=== PATIENT | female | born 1945 | race Caucasian/White ===

== ENCOUNTER 2016-11-15 07:09 | Day surgery (SDC) | payer OTHER ==
[2016-11-15] MEDS ORDERED: D5 LR 1000 ML 1,000 ML IV ONE (07:23)
[2016-11-15] MEDS ORDERED: NORMODYNE INJ 20 MG VIAL ONE (08:03)
[2016-11-15] MEDS ORDERED: DIPRIVAN VIAL 20 ML ONE ×2 (08:35→08:57)
[2016-11-15 09:31] VITALS: BP 123/64
== END 2016-11-15 09:30 | disposition home or self-care (01) ==
LOC: SURG1 07:09
PROVIDERS: ATTEND Internal Medicine Gastroenterology
PROC: 0DJD8ZZ Inspection of Lower Intestinal Tract, Via Natural or Artificial Opening Endoscopic (ICD-10-PCS; principal; 2016-11-15 08:00)
DX: Z12.11 Encounter for screening for malignant neoplasm of colon (principal); R19.4 Change in bowel habit; K63.5 Polyp of colon; K64.8 Other hemorrhoids
CPT/HCPCS: 99100; A4217; J3490; J7120

== ENCOUNTER 2016-12-20 07:18 | Day surgery (SDC) | payer OTHER ==
[2016-12-20] MEDS: D5 LR 1000 ML 1,000 ML IV ONE ×2 (07:47→08:03)
[2016-12-20] MEDS ORDERED: DIPRIVAN VIAL 20 ML ONE (08:48)
[2016-12-20] MEDS ORDERED: XYLOCAINE 2 % (PLAIN) ONE (08:48)
[2016-12-20 13:32] VITALS: BP 186/83
== END 2016-12-20 09:26 | disposition home or self-care (01) ==
LOC: SURG1 07:18
PROVIDERS: ATTEND Internal Medicine Gastroenterology
PROC: 0DB68ZX Excision of Stomach, Via Natural or Artificial Opening Endoscopic, Diagnostic (ICD-10-PCS; principal; 2016-12-20 10:15)
PROC: 0D757ZZ Dilation of Esophagus, Via Natural or Artificial Opening (ICD-10-PCS; principal; 2016-12-20 10:15)
PROC: 0DB88ZX Excision of Small Intestine, Via Natural or Artificial Opening Endoscopic, Diagnostic (ICD-10-PCS; principal; 2016-12-20 10:15)
PROC: 0DJ08ZZ Inspection of Upper Intestinal Tract, Via Natural or Artificial Opening Endoscopic (ICD-10-PCS; principal; 2016-12-20 10:15)
DX: R10.13 Epigastric pain (principal); K21.9 Gastro-esophageal reflux disease without esophagitis; K26.9 Duodenal ulcer, unspecified as acute or chronic, without hemorrhage or perforation; K29.60 Other gastritis without bleeding; K44.9 Diaphragmatic hernia without obstruction or gangrene; K20.8 Other esophagitis; K22.2 Esophageal obstruction
CPT/HCPCS: 99100; A4217; J2001; J3490; J7120

== ENCOUNTER 2020-06-28 12:12 | Inpatient (IN) ==
--- NOTE | 2020-06-28 15:17 | RAD ---
HISTORYCOVID 19 positive, PNEUMONIASTUDYCHEST x-ray, 1 VIEWCOMPARISONX-ray 06/27/2020FINDINGSVague bilateral infiltrates are seen likely due to COVID-19 pneumonia. These are similar to prior study. Heart is normal in size. Vascular calcifications are seen projected overlying the lung apices.IMPRESSIONLikely mild bilateral COVID-19 pneumonia.Electronically signed by: John Smith (Jun 28, 2020 15:16:09)
[2020-06-28] MEDS: NS 1000 ML 1,000 ML IV SCH (15:25)
[2020-06-28] MEDS: DUONEB 0.5 MG/3 MG (3 mL) NEB SCH ×2 (15:27→20:30)
[2020-06-28 16:19] VITALS: BMI 29.1
[2020-06-28] MEDS: HumuLIN R SC PRN ×2 (17:38→21:49)
[2020-06-28 18:30] LABS: BASOPHILS # (AUTO) 0.1 X10^3/uL (0.0-0.1); BASOPHILS % (AUTO) 0.6 % (0.2-1.0); EOSINOPHILS # (AUTO) 0.1 x10^3/uL (0.0-0.2); EOSINOPHILS % (AUTO) 0.5 % (0.9-2.9); HEMATOCRIT 39.8 % (36.0-47.0); HEMOGLOBIN 13.4 g/dL (12.0-16.0); LYMPHOCYTES # (AUTO) 1.6 X10^3/uL (1.3-2.9); LYMPHOCYTES % (AUTO) 9.1 % (21.0-51.0); MEAN CORPUSCULAR HEMOGLOBIN 28.2 pg (27.0-34.0); MEAN CORPUSCULAR HGB CONC 33.7 g/dL (33.0-35.0); MEAN CORPUSCULAR VOLUME 83.6 fL (80.0-100.0); MEAN PLATELET VOLUME 9.9 fL (7.4-11.0); MONOCYTES # (AUTO) 1.5 x10^3/uL (0.3-0.8); MONOCYTES % (AUTO) 8.4 % (0.0-13.0); NEUTROPHILS # (AUTO) 14.3 x10^3/uL (2.2-4.8); NEUTROPHILS % (AUTO) 81.4 % (42.0-75.0); PLATELET COUNT 215 X10^3/uL (150.0-450.0); RED BLOOD COUNT 4.76 X10^6/uL (3.5-5.4); RED CELL DISTRIBUTION WIDTH 14.2 % (11.6-16.5); WHITE BLOOD COUNT 17.6 X10^3/uL (3.6-10.0)
[2020-06-28 18:50] LABS: ALBUMIN 2.7 g/dL (3.4-5.0); CALCIUM 10.3 mg/dL (8.5-10.1); CARBON DIOXIDE 29.3 mmol/L (21-32); COR CA(FOR HYPOALB) 11.3 mg/dL (8.5-10.1); CREATININE 2.09 mg/dL (0.55-1.02); TOTAL PROTEIN 7.1 g/dL (6.4-8.2); TROPONIN I 0.11 ng/mL (0-1.5)
[2020-06-28 20:48] LABS: BILIRUBIN,URINE NEGATIVE (NEGATIVE); BLOOD/HEMOGLOBIN,URINE 3+ (NEGATIVE); GLUCOSE, URINE 4+ (NEGATIVE); KETONES,URINE NEGATIVE (NEGATIVE); LEUKOCYTE ESTERASE ,URINE 3+ (NEGATIVE); NITRITES,URINE NEGATIVE (NEGATIVE); PROTEIN,URINE 2+ (NEGATIVE); UROBILINOGEN,URINE NORMAL (NORMAL)
[2020-06-28 20:56] LABS: APPEARANCE,URINE HAZY (CLEAR); BACTERIA,URINE 3+ /HPF (NEGATIVE); COLOR,URINE YELLOW (YELLOW); RBC,URINE NONE SEEN /HPF (0-3); SQUAMOUS EPITHELIAL CELL,UR MODERATE /HPF (NEGATIVE)
[2020-06-28] MEDS ORDERED: ROCEPHIN VIAL 1 GRAM 1 G in NS 100 ML IV + SPIKE MINIBAG* 100 ML IV SCH (21:24)
[2020-06-28] MEDS: CRESTOR TAB 10 MG PO SCH (21:48)
[2020-06-28] MEDS: NEURONTIN CAP 100 MG PO SCH (21:48)
[2020-06-28] MEDS: SNACK - Diabetic Appropriate PO SCH (21:48)
[2020-06-28] MEDS: LANTUS SC SCH (21:48)
[2020-06-28] MEDS: NORCO 7.5/325 MG TAB PO PRN (21:49)
[2020-06-28] MEDS: ROCEPHIN VIAL 1 GRAM 1 G in NS 100 ML IV + SPIKE MINIBAG* 100 ML IV SCH (23:13)
[2020-06-29] MEDS: HumuLIN R SC PRN ×4 (02:11→23:09)
[2020-06-29] MEDS: DUONEB 0.5 MG/3 MG (3 mL) NEB SCH ×3 (05:02→21:05)
[2020-06-29] MEDS: NS 1000 ML 1,000 ML IV SCH ×2 (05:46→20:00)
[2020-06-29 06:08] LABS: BASOPHILS % (AUTO) 0.3 % (0.2-1.0); EOSINOPHILS # (AUTO) 0.1 x10^3/uL (0.0-0.2); EOSINOPHILS % (AUTO) 0.5 % (0.9-2.9); HEMOGLOBIN 12.5 g/dL (12.0-16.0); LYMPHOCYTES # (AUTO) 1.7 X10^3/uL (1.3-2.9); LYMPHOCYTES % (AUTO) 11.4 % (21.0-51.0); MEAN CORPUSCULAR HEMOGLOBIN 27.9 pg (27.0-34.0); MEAN CORPUSCULAR HGB CONC 33.8 g/dL (33.0-35.0); MEAN CORPUSCULAR VOLUME 82.7 fL (80.0-100.0); MEAN PLATELET VOLUME 10.2 fL (7.4-11.0); MONOCYTES # (AUTO) 1.5 x10^3/uL (0.3-0.8); MONOCYTES % (AUTO) 9.5 % (0.0-13.0); NEUTROPHILS % (AUTO) 78.3 % (42.0-75.0); PLATELET COUNT 199 X10^3/uL (150.0-450.0); RED BLOOD COUNT 4.48 X10^6/uL (3.5-5.4); RED CELL DISTRIBUTION WIDTH 14.6 % (11.6-16.5); WHITE BLOOD COUNT 15.3 X10^3/uL (3.6-10.0)
[2020-06-29 06:47] LABS: ALBUMIN 2.4 g/dL (3.4-5.0); CALCIUM 9.5 mg/dL (8.5-10.1); COR CA(FOR HYPOALB) 10.8 mg/dL (8.5-10.1); CREATININE 1.83 mg/dL (0.55-1.02); TOTAL PROTEIN 6.5 g/dL (6.4-8.2)
[2020-06-29 06:51] LABS: CARBON DIOXIDE 28.6 mmol/L (21-32)
[2020-06-29] MEDS: ASPIRIN EC 81 MG PO SCH (08:47)
[2020-06-29] MEDS: HEPARIN SODIUM INJ 5000 UNITS SC SCH ×2 (08:47→21:37)
[2020-06-29] MEDS: NEURONTIN CAP 100 MG PO SCH ×3 (08:47→21:33)
--- NOTE | 2020-06-29 11:27 | DR.H&P ---
H&P History & Physical for Day of: H&P Date: 06/28/20 Chief Complaint Chief Complaint: weakness, fatigue Allergies Allergies Allergy/AdvReac Type Severity Reaction Status Date / Time No Known Drug Allergies Allergy Verified 06/15/20 11:08 History of Present Illness History of Present Illness: Ms. Lu is a 75y/o female with a PMH of HTN, Type 2 DM, HLD, chronic back pain presented with weakness, fatigue and COVID-19 infection. She tested positive on 06/15/20. She received outpatient treatment with Z-pack and prednisone. She also received IV antibody infusion bamlanivimab. She continued to feel worse and more weak. Patient was seen in the ED on 06/27 and noted to have elevated creatinine. She received fluids and was discharged home. Patient had a fall at home where she was found on the floor and too weak to get up so she was directly admitted for further care. Patient denies fever or chills. She has mild dry cough. Her appetite is improving, no N/V/D. Patient denies SOB. She is currently on room air with sats > 95%. Labs: WBC 17.6 BUN/Cr: 34/2.09 troponin 0.11 CRP 96 Repeat COVID positive CXR: suggestive of viral pneumonia with b/l opacities UA: TNTC WBC Bacteria present DEVENDRA + Plan: start IV hydration with NS, resume home medications, hold nephrotoxic medications until renal function improves. Start Rocephin for UTI, send urine culture. Start duonebs prn. PT/OT as tolerated. Start Lantus and SSI. Monitor AM labs. Past Medical History Past Medical History: Arthritis, Diabetes, Dyslipidemia and Hypertension Past Surgical History Surgical History: Hysterectomy Family History Family Medical History: Diabetes Mellitus, [place] and Hypertension Social History Does patient currently use any type of tobacco product: No Have you used tobacco products in the last 12 months: No Type of Tobacco Use: None Does any household member use tobacco: No Alcohol Use: None Drug Use: None Prescription drug monitoring program results: PDMP reviewed and no concerns identified Medications Home Medications: No Known Drug Allergies Allergy (Verified 06/15/20 11:08) CONTINUE taking the following medications aspirin 81 mg PO DAILY 06/28/20 [History] cholecalciferol (vitamin D3) 1.25 mcg PO DAILY 06/28/20 [History] gabapentin 100 mg PO QID 06/28/20 [History] hydrocodone-acetaminophen 1 tab PO BID PRN 06/28/20 [History] insulin lispro [Humalog KwikPen Insulin] See Rx Instructions .ROUTE .COMPLEX 06/28/20 [History] Labs Result Diagrams: 06/29/20 05:00 06/29/20 05:00 Labs: Laboratory WBC 15.3 X10^3/uL (3.6-10.0) H 06/29/20 05:00 RBC 4.48 X10^6/uL (3.5-5.4) 06/29/20 05:00 Hgb 12.5 g/dL (12.0-16.0) 06/29/20 05:00 Hct 37.0 % (36.0-47.0) 06/29/20 05:00 MCV 82.7 fL (80.0-100.0) 06/29/20 05:00 MCH 27.9 pg (27.0-34.0) 06/29/20 05:00 MCHC 33.8 g/dL (33.0-35.0) 06/29/20 05:00 RDW 14.6 % (11.6-16.5) 06/29/20 05:00 Plt Count 199 X10^3/uL (150.0-450.0) 06/29/20 05:00 MPV 10.2 fL (7.4-11.0) 06/29/20 05:00 Neut % (Auto) 78.3 % (42.0-75.0) H 06/29/20 05:00 Lymph % (Auto) 11.4 % (21.0-51.0) L 06/29/20 05:00 [place] % (Auto) 9.5 % (0.0-13.0) 06/29/20 05:00 Eos % (Auto) 0.5 % (0.9-2.9) L 06/29/20 05:00 Baso % (Auto) 0.3 % (0.2-1.0) 06/29/20 05:00 Neut # (Auto) 12.0 x10^3/uL (2.2-4.8) H 06/29/20 05:00 Lymph # (Auto) 1.7 X10^3/uL (1.3-2.9) 06/29/20 05:00 [place] # (Auto) 1.5 x10^3/uL (0.3-0.8) H 06/29/20 05:00 Eos # (Auto) 0.1 x10^3/uL (0.0-0.2) 06/29/20 05:00 Baso # (Auto) 0.0 X10^3/uL (0.0-0.1) 06/29/20 05:00 Absolute Nucleated RBC 0.0 /100WBC 06/29/20 05:00 Sodium 130 mmol/L (136-145) L 06/29/20 05:00 Corrected Sodium 132 mmol/L (136-145) L 06/29/20 05:00 Potassium 3.7 mmol/L (3.5-5.1) 06/29/20 05:00 Chloride 94 mmol/L (98-107) L 06/29/20 05:00 Carbon Dioxide 28.6 mmol/L (21-32) 06/29/20 05:00 BUN 32 mg/dL (7-18) H 06/29/20 05:00 Creatinine 1.83 mg/dL (0.55-1.02) H 06/29/20 05:00 Est GFR (MDRD) Af Amer 35 (>60) L 06/29/20 05:00 Est GFR (MDRD) Non-Af 29 (>60) L 06/29/20 05:00 Glucose 200 mg/dL (65-99) H 06/29/20 05:00 POC Glucose (mg/dL) 370 mg/dL (65-99) H 06/29/20 11:19 Calcium 9.5 mg/dL (8.5-10.1) 06/29/20 05:00 Corrected Calcium 10.8 mg/dL (8.5-10.1) H 06/29/20 05:00 Total Bilirubin 0.40 mg/dL (0.2-1.0) 06/29/20 05:00 AST 27 Units/L (15-37) 06/29/20 05:00 ALT 25 Units/L (12-78) 06/29/20 05:00 Alkaline Phosphatase 97 Units/L (46-116) 06/29/20 05:00 Troponin I 0.11 ng/mL (0-1.5) 06/28/20 18:14 C-Reactive Protein 96.70 mg/L (0-3.0) H 06/28/20 18:14 Total Protein 6.5 g/dL (6.4-8.2) 06/29/20 05:00 Albumin 2.4 g/dL (3.4-5.0) L 06/29/20 05:00 Globulin 4.1 g/dL (2.5-4.5) 06/29/20 05:00 Albumin/Globulin Ratio 0.6 Ratio (1.1-2.1) L 06/29/20 05:00 Specimen Type Random urine 06/28/20 18:45 Urine Color Yellow (YELLOW) 06/28/20 18:45 Urine Appearance Hazy (CLEAR) 06/28/20 18:45 Urine pH 5.0 (5.0 - 8.0) 06/28/20 18:45 Ur Specific [place] 1.015 (1.000-1.030) 06/28/20 18:45 Urine Protein 2+ (NEGATIVE) 06/28/20 18:45 Urine Glucose (UA) 4+ (NEGATIVE) 06/28/20 18:45 Urine Ketones Negative (NEGATIVE) 06/28/20 18:45 Urine Occult Blood 3+ (NEGATIVE) 06/28/20 18:45 Urine Nitrite Negative (NEGATIVE) 06/28/20 18:45 Urine Bilirubin Negative (NEGATIVE) 06/28/20 18:45 Urine Urobilinogen Normal (NORMAL) 06/28/20 18:45 Ur Leukocyte Esterase 3+ (NEGATIVE) 06/28/20 18:45 Urine RBC None seen /HPF (0-3) 06/28/20 18:45 Urine WBC Tntc /HPF (0-5) A 06/28/20 18:45 Ur Squamous Epith Cells Moderate /HPF (NEGATIVE) 06/28/20 18:45 Urine Bacteria 3+ /HPF (NEGATIVE) 06/28/20 18:45 Ur Culture Indicated? No/not indicated 06/28/20 18:45 SARS CoV-2 RNA Rapid CRISTINA Positive (NEGATIVE) A 06/28/20 14:12 Review of Systems Constitutional: Weakness and Malaise Eyes: No Symptoms Reported ENT: No Symptoms Reported Respiratory: Cough Cardiovascular: No Symptoms Reported Gastrointestinal: No Symptoms Reported Genitourinary: No Symptoms Reported Musculoskeletal: Back Pain Skin: No Symptoms Reported Neurological: Weakness Physical Exam Vital Signs: Temperature 98.5 F Pulse Rate 102 Respiratory Rate 23 Blood Pressure [Left Arm] 117/54 Blood Pressure 148/65 O2 Sat by Pulse Oximetry 96 Oriented: Normal Eyes: Normal Ear: Normal Nose: Normal Throat: Normal Respiratory: Diminished Throughout Cardiovascular: Normal and Edema Auscultation: Bowel Sounds: Normal Palpation: Normal Tenderness: Normal Skin: Decreased Turgur Musculoskeletal: Normal Psychiatric: Normal Mood Description: Calm Affect: Normal Speech Pattern: Clear and Appropriate Assessment/Plan (1) UTI (urinary tract infection): Qualifiers: Hematuria presence: without hematuria Urinary tract infection type: acute cystitis Qualified Code(s): N30.00 - Acute cystitis without hematuria Status: Acute (2) COVID-19 virus infection: Status: Acute (3) Uncontrolled diabetes mellitus: Qualifiers: Diabetes mellitus type: type 2 Glycemic state: with hyperglycemia Qualified Code(s): E11.65 - Type 2 diabetes mellitus with hyperglycemia Status: Acute (4) Generalized weakness: Status: Acute (5) Acute renal failure (ARF): Qualifiers: Acute renal failure type: unspecified Qualified Code(s): N17.9 - Acute kidney failure, unspecified Status: Acute (6) Hyponatremia: Status: Acute Review H&P Reviewed: Yes Patient was examined?: Yes
--- NOTE | 2020-06-29 12:09 | PCM.PROG ---
Progress Note Progress Note for Day of Date of Exam: 06/29/20 Subjective Subjective: Patient seen at bedside, no overnight events. She states she still feels weak. She is able to get up and use the bedside commode. She states she did eat and her appetite is better. Denies N/V/D or abdominal pain. Denies fever or chills, no cough. She has been on room air. Labs: WBC trending down 15.3 BUN/Cr: 32/1.83 Urine and Blood Cx pending Plan: continue hydration with NS, continue Rocephin. Follow AM labs and cultures. Continue duonebs. Will add hydralazine prn for SBP>160. PT/OT as tolerated. Add IS. Continue DVT ppx. Continue Lantus and SSI. Past Medical Family Social History Past Med/Fam/Surg Hx: No changes since H&P Allergies: Allergies No Known Drug Allergies Allergy (Verified 06/15/20 11:08) Review of Systems ROS: No change since H&P Vital Signs and I&O's Vital Signs: Temperature 98.5 F Pulse Rate 102 Respiratory Rate 23 Blood Pressure [Left Arm] 117/54 Blood Pressure 148/65 O2 Sat by Pulse Oximetry 96 Intake and Output: Intake & Output 06/26/20 06/27/20 06/28/20 06/29/20 23:59 23:59 23:59 23:59 Intake Total 1300 / 1300 1500 / 1500 Balance 1300 / 1300 1500 / 1500 Physical Exam Oriented: Normal Eyes: Normal Ear: Normal Nose: Normal Throat: Normal Respiratory: Generalized and Diminished Cardiovascular: Normal and Edema Auscultation: Bowel Sounds: Normal Tenderness: Normal Skin: Decreased [place] Musculoskeletal: Normal Psychiatric: Normal Mood Description: Calm Affect: Normal Speech Pattern: Clear and Appropriate Laboratory and Diagnostics Result Diagrams: 06/29/20 05:00 06/29/20 05:00 Labs: Laboratory WBC 15.3 X10^3/uL (3.6-10.0) H 06/29/20 05:00 RBC 4.48 X10^6/uL (3.5-5.4) 06/29/20 05:00 Hgb 12.5 g/dL (12.0-16.0) 06/29/20 05:00 Hct 37.0 % (36.0-47.0) 06/29/20 05:00 MCV 82.7 fL (80.0-100.0) 06/29/20 05:00 MCH 27.9 pg (27.0-34.0) 06/29/20 05:00 MCHC 33.8 g/dL (33.0-35.0) 06/29/20 05:00 RDW 14.6 % (11.6-16.5) 06/29/20 05:00 Plt Count 199 X10^3/uL (150.0-450.0) 06/29/20 05:00 MPV 10.2 fL (7.4-11.0) 06/29/20 05:00 Neut % (Auto) 78.3 % (42.0-75.0) H 06/29/20 05:00 Lymph % (Auto) 11.4 % (21.0-51.0) L 06/29/20 05:00 [place] % (Auto) 9.5 % (0.0-13.0) 06/29/20 05:00 Eos % (Auto) 0.5 % (0.9-2.9) L 06/29/20 05:00 Baso % (Auto) 0.3 % (0.2-1.0) 06/29/20 05:00 Neut # (Auto) 12.0 x10^3/uL (2.2-4.8) H 06/29/20 05:00 Lymph # (Auto) 1.7 X10^3/uL (1.3-2.9) 06/29/20 05:00 [place] # (Auto) 1.5 x10^3/uL (0.3-0.8) H 06/29/20 05:00 Eos # (Auto) 0.1 x10^3/uL (0.0-0.2) 06/29/20 05:00 Baso # (Auto) 0.0 X10^3/uL (0.0-0.1) 06/29/20 05:00 Absolute Nucleated RBC 0.0 /100WBC 06/29/20 05:00 Sodium 130 mmol/L (136-145) L 06/29/20 05:00 Corrected Sodium 132 mmol/L (136-145) L 06/29/20 05:00 Potassium 3.7 mmol/L (3.5-5.1) 06/29/20 05:00 Chloride 94 mmol/L (98-107) L 06/29/20 05:00 Carbon Dioxide 28.6 mmol/L (21-32) 06/29/20 05:00 BUN 32 mg/dL (7-18) H 06/29/20 05:00 Creatinine 1.83 mg/dL (0.55-1.02) H 06/29/20 05:00 Est GFR (MDRD) Af Amer 35 (>60) L 06/29/20 05:00 Est GFR (MDRD) Non-Af 29 (>60) L 06/29/20 05:00 Glucose 200 mg/dL (65-99) H 06/29/20 05:00 POC Glucose (mg/dL) 370 mg/dL (65-99) H 06/29/20 11:19 Calcium 9.5 mg/dL (8.5-10.1) 06/29/20 05:00 Corrected Calcium 10.8 mg/dL (8.5-10.1) H 06/29/20 05:00 Total Bilirubin 0.40 mg/dL (0.2-1.0) 06/29/20 05:00 AST 27 Units/L (15-37) 06/29/20 05:00 ALT 25 Units/L (12-78) 06/29/20 05:00 Alkaline Phosphatase 97 Units/L (46-116) 06/29/20 05:00 Troponin I 0.11 ng/mL (0-1.5) 06/28/20 18:14 C-Reactive Protein 96.70 mg/L (0-3.0) H 06/28/20 18:14 Total Protein 6.5 g/dL (6.4-8.2) 06/29/20 05:00 Albumin 2.4 g/dL (3.4-5.0) L 06/29/20 05:00 Globulin 4.1 g/dL (2.5-4.5) 06/29/20 05:00 Albumin/Globulin Ratio 0.6 Ratio (1.1-2.1) L 06/29/20 05:00 Specimen Type Random urine 06/28/20 18:45 Urine Color Yellow (YELLOW) 06/28/20 18:45 Urine Appearance Hazy (CLEAR) 06/28/20 18:45 Urine pH 5.0 (5.0 - 8.0) 06/28/20 18:45 Ur Specific [place] 1.015 (1.000-1.030) 06/28/20 18:45 Urine Protein 2+ (NEGATIVE) 06/28/20 18:45 Urine Glucose (UA) 4+ (NEGATIVE) 06/28/20 18:45 Urine Ketones Negative (NEGATIVE) 06/28/20 18:45 Urine Occult Blood 3+ (NEGATIVE) 06/28/20 18:45 Urine Nitrite Negative (NEGATIVE) 06/28/20 18:45 Urine Bilirubin Negative (NEGATIVE) 06/28/20 18:45 Urine Urobilinogen Normal (NORMAL) 06/28/20 18:45 Ur Leukocyte Esterase 3+ (NEGATIVE) 06/28/20 18:45 Urine RBC None seen /HPF (0-3) 06/28/20 18:45 Urine WBC Tntc /HPF (0-5) A 06/28/20 18:45 Ur Squamous Epith Cells Moderate /HPF (NEGATIVE) 06/28/20 18:45 Urine Bacteria 3+ /HPF (NEGATIVE) 06/28/20 18:45 Ur Culture Indicated? No/not indicated 06/28/20 18:45 SARS CoV-2 RNA Rapid CRISTINA Positive (NEGATIVE) A 06/28/20 14:12 Plan (1) UTI (urinary tract infection): Status: Acute Qualifiers: Hematuria presence: without hematuria Urinary tract infection type: acute cystitis Qualified Code(s): N30.00 - Acute cystitis without hematuria (2) COVID-19 virus infection: Status: Acute (3) Uncontrolled diabetes mellitus: Status: Acute Qualifiers: Diabetes mellitus type: type 2 Glycemic state: with hyperglycemia Qualified Code(s): E11.65 - Type 2 diabetes mellitus with hyperglycemia (4) Generalized weakness: Status: Acute (5) Acute renal failure (ARF): Status: Acute Qualifiers: Acute renal failure type: unspecified Qualified Code(s): N17.9 - Acute kidney failure, unspecified (6) Hyponatremia: Status: Acute
[2020-06-29] MEDS: NORCO 7.5/325 MG TAB PO PRN (15:23)
[2020-06-29] MEDS: SYNTHROID 50 mcg TAB PO SCH (17:52)
[2020-06-29] MEDS: LANTUS SC SCH (21:30)
[2020-06-29] MEDS: CRESTOR TAB 10 MG PO SCH (21:33)
[2020-06-29] MEDS: ROCEPHIN VIAL 1 GRAM 1 G in NS 100 ML IV + SPIKE MINIBAG* 100 ML IV SCH (23:00)
[2020-06-29] MEDS: SNACK - Diabetic Appropriate PO SCH (23:07)
[2020-06-30] MEDS: DUONEB 0.5 MG/3 MG (3 mL) NEB SCH ×4 (05:25→21:30)
[2020-06-30] MEDS: NORCO 7.5/325 MG TAB PO PRN ×2 (05:43→21:08)
[2020-06-30 06:44] LABS: BASOPHILS % (AUTO) 0.2 % (0.2-1.0); EOSINOPHILS # (AUTO) 0.1 x10^3/uL (0.0-0.2); EOSINOPHILS % (AUTO) 0.8 % (0.9-2.9); HEMATOCRIT 34.5 % (36.0-47.0); HEMOGLOBIN 11.6 g/dL (12.0-16.0); LYMPHOCYTES # (AUTO) 1.6 X10^3/uL (1.3-2.9); LYMPHOCYTES % (AUTO) 12.9 % (21.0-51.0); MEAN CORPUSCULAR HEMOGLOBIN 27.9 pg (27.0-34.0); MEAN CORPUSCULAR HGB CONC 33.5 g/dL (33.0-35.0); MEAN CORPUSCULAR VOLUME 83.3 fL (80.0-100.0); MEAN PLATELET VOLUME 10.3 fL (7.4-11.0); MONOCYTES # (AUTO) 1.5 x10^3/uL (0.3-0.8); MONOCYTES % (AUTO) 11.9 % (0.0-13.0); NEUTROPHILS # (AUTO) 9.3 x10^3/uL (2.2-4.8); NEUTROPHILS % (AUTO) 74.2 % (42.0-75.0); PLATELET COUNT 169 X10^3/uL (150.0-450.0); RED BLOOD COUNT 4.13 X10^6/uL (3.5-5.4); RED CELL DISTRIBUTION WIDTH 14.2 % (11.6-16.5); WHITE BLOOD COUNT 12.5 X10^3/uL (3.6-10.0)
[2020-06-30 06:55] LABS: CARBON DIOXIDE 24.2 mmol/L (21-32); CREATININE 1.53 mg/dL (0.55-1.02)
[2020-06-30] MEDS: NEURONTIN CAP 100 MG PO SCH ×3 (09:00→21:14)
[2020-06-30] MEDS: ASPIRIN EC 81 MG PO SCH (09:41)
[2020-06-30] MEDS: HEPARIN SODIUM INJ 5000 UNITS SC SCH ×2 (09:42→21:12)
[2020-06-30] MEDS: DECADRON TAB PO SCH (10:00)
--- NOTE | 2020-06-30 10:16 | PCM.PROG ---
Progress Note Progress Note for Day of Date of Exam: 06/30/20 Subjective Subjective: Patient seen at bedside, no overnight events. She states she still feels weak. She has been ambulating in the room and sitting on the recliner. Denies fever or chills. Denies cough. She has been on room air. She has been eating well, denies GI Sx. Labs: WBC trending down 12.5 BUN/Cr: 28/1.53 Urine Cx Gram (-) rods BCx: pending Plan: Continue hydration, Rocephin and duonebs. Continue PT/OT as tolerated. Will start decadron 4mg daily. Advised patient to ambulate in the room and sit on the recliner as tolerated. Possible discharge tomorrow based on PT recs. Increase Lantus to 25 units qHS, continue SSI. Follow cultures and Monitor AM labs. Past Medical Family Social History Past Med/Fam/Surg Hx: No changes since H&P Allergies: Allergies No Known Drug Allergies Allergy (Verified 06/15/20 11:08) Review of Systems ROS: No change since H&P Vital Signs and I&O's Vital Signs: Temperature 98.6 F Pulse Rate 79 Respiratory Rate 20 Blood Pressure [Left Arm] 117/54 Blood Pressure 135/70 O2 Sat by Pulse Oximetry 99 Intake and Output: Intake & Output 06/27/20 06/28/20 06/29/20 06/30/20 23:59 23:59 23:59 23:59 Intake Total 1300 / 1300 3364 / 3364 875 / 875 Balance 1300 / 1300 3364 / 3364 875 / 875 Physical Exam Oriented: Normal Eyes: Normal Ear: Normal Nose: Normal Throat: Normal Respiratory: Generalized and Diminished Cardiovascular: Normal and Edema Auscultation: Bowel Sounds: Normal Tenderness: Normal Skin: Decreased [place] Musculoskeletal: Normal Psychiatric: Normal Mood Description: Calm Affect: Normal Speech Pattern: Clear and Appropriate Laboratory and Diagnostics Result Diagrams: 06/30/20 05:57 06/30/20 05:57 Labs: 06/28/20 16:05 Blood Blood Culture - Preliminary 06/28/20 22:35 Urine,Clean Catch Urine Culture - Preliminary Laboratory WBC 12.5 X10^3/uL (3.6-10.0) H 06/30/20 05:57 RBC 4.13 X10^6/uL (3.5-5.4) 06/30/20 05:57 Hgb 11.6 g/dL (12.0-16.0) L 06/30/20 05:57 Hct 34.5 % (36.0-47.0) L 06/30/20 05:57 MCV 83.3 fL (80.0-100.0) 06/30/20 05:57 MCH 27.9 pg (27.0-34.0) 06/30/20 05:57 MCHC 33.5 g/dL (33.0-35.0) 06/30/20 05:57 RDW 14.2 % (11.6-16.5) 06/30/20 05:57 Plt Count 169 X10^3/uL (150.0-450.0) 06/30/20 05:57 MPV 10.3 fL (7.4-11.0) 06/30/20 05:57 Neut % (Auto) 74.2 % (42.0-75.0) 06/30/20 05:57 Lymph % (Auto) 12.9 % (21.0-51.0) L 06/30/20 05:57 [place] % (Auto) 11.9 % (0.0-13.0) 06/30/20 05:57 Eos % (Auto) 0.8 % (0.9-2.9) L 06/30/20 05:57 Baso % (Auto) 0.2 % (0.2-1.0) 06/30/20 05:57 Neut # (Auto) 9.3 x10^3/uL (2.2-4.8) H 06/30/20 05:57 Lymph # (Auto) 1.6 X10^3/uL (1.3-2.9) 06/30/20 05:57 [place] # (Auto) 1.5 x10^3/uL (0.3-0.8) H 06/30/20 05:57 Eos # (Auto) 0.1 x10^3/uL (0.0-0.2) 06/30/20 05:57 Baso # (Auto) 0.0 X10^3/uL (0.0-0.1) 06/30/20 05:57 Absolute Nucleated RBC 0.0 /100WBC 06/30/20 05:57 Sodium 128 mmol/L (136-145) L 06/30/20 05:57 Corrected Sodium 132 mmol/L (136-145) L 06/30/20 05:57 Potassium 3.6 mmol/L (3.5-5.1) 06/30/20 05:57 Chloride 95 mmol/L (98-107) L 06/30/20 05:57 Carbon Dioxide 24.2 mmol/L (21-32) 06/30/20 05:57 BUN 28 mg/dL (7-18) H 06/30/20 05:57 Creatinine 1.53 mg/dL (0.55-1.02) H 06/30/20 05:57 Est GFR (MDRD) Af Amer 43 (>60) L 06/30/20 05:57 Est GFR (MDRD) Non-Af 35 (>60) L 06/30/20 05:57 Glucose 279 mg/dL (65-99) H 06/30/20 05:57 POC Glucose (mg/dL) 243 mg/dL (65-99) H 06/30/20 05:27 Calcium 9.0 mg/dL (8.5-10.1) 06/30/20 05:57 Corrected Calcium 10.8 mg/dL (8.5-10.1) H 06/29/20 05:00 Total Bilirubin 0.40 mg/dL (0.2-1.0) 06/29/20 05:00 AST 27 Units/L (15-37) 06/29/20 05:00 ALT 25 Units/L (12-78) 06/29/20 05:00 Alkaline Phosphatase 97 Units/L (46-116) 06/29/20 05:00 Troponin I 0.11 ng/mL (0-1.5) 06/28/20 18:14 C-Reactive Protein 113.10 mg/L (0-3.0) H 06/30/20 05:57 Total Protein 6.5 g/dL (6.4-8.2) 06/29/20 05:00 Albumin 2.4 g/dL (3.4-5.0) L 06/29/20 05:00 Globulin 4.1 g/dL (2.5-4.5) 06/29/20 05:00 Albumin/Globulin Ratio 0.6 Ratio (1.1-2.1) L 06/29/20 05:00 Specimen Type Random urine 06/28/20 18:45 Urine Color Yellow (YELLOW) 06/28/20 18:45 Urine Appearance Hazy (CLEAR) 06/28/20 18:45 Urine pH 5.0 (5.0 - 8.0) 06/28/20 18:45 Ur Specific [place] 1.015 (1.000-1.030) 06/28/20 18:45 Urine Protein 2+ (NEGATIVE) 06/28/20 18:45 Urine Glucose (UA) 4+ (NEGATIVE) 06/28/20 18:45 Urine Ketones Negative (NEGATIVE) 06/28/20 18:45 Urine Occult Blood 3+ (NEGATIVE) 06/28/20 18:45 Urine Nitrite Negative (NEGATIVE) 06/28/20 18:45 Urine Bilirubin Negative (NEGATIVE) 06/28/20 18:45 Urine Urobilinogen Normal (NORMAL) 06/28/20 18:45 Ur Leukocyte Esterase 3+ (NEGATIVE) 06/28/20 18:45 Urine RBC None seen /HPF (0-3) 06/28/20 18:45 Urine WBC Tntc /HPF (0-5) A 06/28/20 18:45 Ur Squamous Epith Cells Moderate /HPF (NEGATIVE) 06/28/20 18:45 Urine Bacteria 3+ /HPF (NEGATIVE) 06/28/20 18:45 Ur Culture Indicated? No/not indicated 06/28/20 18:45 SARS CoV-2 RNA Rapid CRISTINA Positive (NEGATIVE) A 06/28/20 14:12 Plan (1) UTI (urinary tract infection): Status: Acute Qualifiers: Hematuria presence: without hematuria Urinary tract infection type: acute cystitis Qualified Code(s): N30.00 - Acute cystitis without hematuria (2) COVID-19 virus infection: Status: Acute (3) Uncontrolled diabetes mellitus: Status: Acute Qualifiers: Diabetes mellitus type: type 2 Glycemic state: with hyperglycemia Qualified Code(s): E11.65 - Type 2 diabetes mellitus with hyperglycemia (4) Generalized weakness: Status: Acute (5) Acute renal failure (ARF): Status: Acute Qualifiers: Acute renal failure type: unspecified Qualified Code(s): N17.9 - Acute kidney failure, unspecified (6) Hyponatremia: Status: Acute
[2020-06-30] MEDS: SYNTHROID 50 mcg TAB PO SCH (16:45)
[2020-06-30] MEDS: NS 1000 ML 1,000 ML IV SCH ×2 (17:00→21:10)
[2020-06-30] MEDS: HumuLIN R SC PRN ×2 (19:02→21:13)
[2020-06-30] MEDS: SNACK - Diabetic Appropriate PO SCH (20:00)
[2020-06-30] MEDS ORDERED: LANTUS SC SCH (21:00)
[2020-06-30] MEDS: CRESTOR TAB 10 MG PO SCH (21:10)
[2020-07-01] MEDS: NS 1000 ML 1,000 ML IV SCH ×3 (02:36→18:40)
[2020-07-01] MEDS: DUONEB 0.5 MG/3 MG (3 mL) NEB SCH ×3 (06:00→21:20)
[2020-07-01] MEDS: HumuLIN R SC PRN ×4 (06:48→21:30)
[2020-07-01 06:52] LABS: CALCIUM 9.1 mg/dL (8.5-10.1); CARBON DIOXIDE 23.3 mmol/L (21-32); CREATININE 1.29 mg/dL (0.55-1.02)
[2020-07-01 06:59] LABS: BASOPHILS % (AUTO) 0.2 % (0.2-1.0); EOSINOPHILS % (AUTO) 0.1 % (0.9-2.9); HEMATOCRIT 34.8 % (36.0-47.0); LYMPHOCYTES # (AUTO) 1.2 X10^3/uL (1.3-2.9); LYMPHOCYTES % (AUTO) 11.8 % (21.0-51.0); MEAN CORPUSCULAR HEMOGLOBIN 28.8 pg (27.0-34.0); MEAN CORPUSCULAR HGB CONC 34.6 g/dL (33.0-35.0); MEAN CORPUSCULAR VOLUME 83.3 fL (80.0-100.0); MEAN PLATELET VOLUME 10.7 fL (7.4-11.0); MONOCYTES # (AUTO) 0.3 x10^3/uL (0.3-0.8); MONOCYTES % (AUTO) 2.6 % (0.0-13.0); NEUTROPHILS # (AUTO) 8.4 x10^3/uL (2.2-4.8); NEUTROPHILS % (AUTO) 85.3 % (42.0-75.0); PLATELET COUNT 174 X10^3/uL (150.0-450.0); RED BLOOD COUNT 4.18 X10^6/uL (3.5-5.4); RED CELL DISTRIBUTION WIDTH 14.4 % (11.6-16.5); WHITE BLOOD COUNT 9.9 X10^3/uL (3.6-10.0)
[2020-07-01] MEDS: NORCO 7.5/325 MG TAB PO PRN ×2 (07:36→17:05)
--- NOTE | 2020-07-01 07:37 | RAD ---
HISTORYCOVID+STUDYCHEST, 1 VIEWCOMPARISONAP portable chest June 28, 2020.FINDINGSThe trachea is midline. The cardiac silhouette is unremarkable. Minimal new airspace disease is seen in the left lung base laterally in the left costophrenic angle. The minimal hazy density seen previously in the right lung base has resolved and may have been atelectasis. Lung volumes are low. With the diaphragms at the 8th rib. The bony thorax is unremarkable.IMPRESSIONMinimal airspace disease left lower lobe costophrenic angle and retrocardiac region may be due to COVID-19 pneumonia.Electronically signed by: BLANCHE CANTRELL (Jul 01, 2020 07:36:10)
[2020-07-01] MEDS: NEURONTIN CAP 100 MG PO SCH ×3 (10:39→21:30)
[2020-07-01] MEDS: DECADRON TAB PO SCH (10:39)
[2020-07-01] MEDS: ASPIRIN EC 81 MG PO SCH (10:39)
[2020-07-01] MEDS: HEPARIN SODIUM INJ 5000 UNITS SC SCH ×2 (10:40→22:10)
--- NOTE | 2020-07-01 10:47 | PCM.PROG ---
Progress Note Progress Note for Day of Date of Exam: 07/01/20 Subjective Subjective: Patient seen at bedside, no overnight events. She states she feels slightly better today. She did work with PT a little bit yesterday. She has been ambulating in the room and sitting on the recliner. She states she gets tired easily. Denies fever or chills. Denies cough. She has been on room air. She has been eating well, denies GI Sx. Labs: WBC trending down 9.9 BUN/Cr:07/08. Urine Cx: E. coli / Blood Cx: E.coli CXR today: improved, minimal atelectasis Plan: Repeat blood Cx. Patient has been afebrile with WBC trending down. Continue Rocephin. Ecoli is coronado-sensitive. Continue gentle hydration, renal function almost back to normal. Continue PT/OT as tolerated. Resume losartan- hctz. Discussed setting up home-health on discharge. Monitor AM labs and repeat blood Cx. Continue duonebs and IS. Patient is on room air. Continue decadron. Increase lantus to 30 units qhS and SSI. Patient likely will be discharged on Saturday. Past Medical Family Social History Past Med/Fam/Surg Hx: No changes since H&P Allergies: Allergies No Known Drug Allergies Allergy (Verified 06/15/20 11:08) Review of Systems ROS: No change since H&P Vital Signs and I&O's Vital Signs: Temperature 98 F Pulse Rate [Left Brachial] 100 Pulse Rate 88 Respiratory Rate 20 Blood Pressure [Left Arm] 188/83 Blood Pressure 184/82 O2 Sat by Pulse Oximetry 98 Intake and Output: Intake & Output 06/28/20 06/29/20 06/30/20 07/01/20 23:59 23:59 23:59 23:59 Intake Total 1300 / 1300 3364 / 3364 5492 / 5492 1485 / 1485 Balance 1300 / 1300 3364 / 3364 5492 / 5492 1485 / 1485 Physical Exam Oriented: Normal Eyes: Normal Ear: Normal Nose: Normal Throat: Normal Respiratory: Generalized and Diminished Cardiovascular: Normal Auscultation: Bowel Sounds: Normal Tenderness: Normal Skin: Decreased Turgur Musculoskeletal: Normal Psychiatric: Normal Mood Description: Calm Affect: Normal Speech Pattern: Clear and Appropriate Laboratory and Diagnostics Result Diagrams: 07/01/20 05:58 07/01/20 05:58 Labs: 06/28/20 22:35 Urine,Clean Catch Urine Culture - Final Escherichia Coli 06/28/20 18:14 Blood Blood Culture - Preliminary 06/28/20 16:05 Blood Blood Culture - Final Escherichia Coli Laboratory WBC 9.9 X10^3/uL (3.6-10.0) 07/01/20 05:58 RBC 4.18 X10^6/uL (3.5-5.4) 07/01/20 05:58 Hgb 12.0 g/dL (12.0-16.0) 07/01/20 05:58 Hct 34.8 % (36.0-47.0) L 07/01/20 05:58 MCV 83.3 fL (80.0-100.0) 07/01/20 05:58 MCH 28.8 pg (27.0-34.0) 07/01/20 05:58 MCHC 34.6 g/dL (33.0-35.0) 07/01/20 05:58 RDW 14.4 % (11.6-16.5) 07/01/20 05:58 Plt Count 174 X10^3/uL (150.0-450.0) 07/01/20 05:58 MPV 10.7 fL (7.4-11.0) 07/01/20 05:58 Neut % (Auto) 85.3 % (42.0-75.0) H 07/01/20 05:58 Lymph % (Auto) 11.8 % (21.0-51.0) L 07/01/20 05:58 [place] % (Auto) 2.6 % (0.0-13.0) 07/01/20 05:58 Eos % (Auto) 0.1 % (0.9-2.9) L 07/01/20 05:58 Baso % (Auto) 0.2 % (0.2-1.0) 07/01/20 05:58 Neut # (Auto) 8.4 x10^3/uL (2.2-4.8) H 07/01/20 05:58 Lymph # (Auto) 1.2 X10^3/uL (1.3-2.9) L 07/01/20 05:58 [place] # (Auto) 0.3 x10^3/uL (0.3-0.8) 07/01/20 05:58 Eos # (Auto) 0.0 x10^3/uL (0.0-0.2) 07/01/20 05:58 Baso # (Auto) 0.0 X10^3/uL (0.0-0.1) 07/01/20 05:58 Absolute Nucleated RBC 0.0 /100WBC 07/01/20 05:58 Sodium 133 mmol/L (136-145) L 07/01/20 05:58 Corrected Sodium 138 mmol/L (136-145) 07/01/20 05:58 Potassium 4.6 mmol/L (3.5-5.1) 07/01/20 05:58 Chloride 99 mmol/L (98-107) 07/01/20 05:58 Carbon Dioxide 23.3 mmol/L (21-32) 07/01/20 05:58 BUN 24 mg/dL (7-18) H 07/01/20 05:58 Creatinine 1.29 mg/dL (0.55-1.02) H 07/01/20 05:58 Est GFR (MDRD) Af Amer 52 (>60) L 07/01/20 05:58 Est GFR (MDRD) Non-Af 43 (>60) L 07/01/20 05:58 Glucose 314 mg/dL (65-99) H 07/01/20 05:58 POC Glucose (mg/dL) 319 mg/dL (65-99) H 07/01/20 05:45 Calcium 9.1 mg/dL (8.5-10.1) 07/01/20 05:58 Corrected Calcium 10.8 mg/dL (8.5-10.1) H 06/29/20 05:00 Total Bilirubin 0.40 mg/dL (0.2-1.0) 06/29/20 05:00 AST 27 Units/L (15-37) 06/29/20 05:00 ALT 25 Units/L (12-78) 06/29/20 05:00 Alkaline Phosphatase 97 Units/L (46-116) 06/29/20 05:00 Troponin I 0.11 ng/mL (0-1.5) 06/28/20 18:14 C-Reactive Protein 113.10 mg/L (0-3.0) H 06/30/20 05:57 Total Protein 6.5 g/dL (6.4-8.2) 06/29/20 05:00 Albumin 2.4 g/dL (3.4-5.0) L 06/29/20 05:00 Globulin 4.1 g/dL (2.5-4.5) 06/29/20 05:00 Albumin/Globulin Ratio 0.6 Ratio (1.1-2.1) L 06/29/20 05:00 Specimen Type Random urine 06/28/20 18:45 Urine Color Yellow (YELLOW) 06/28/20 18:45 Urine Appearance Hazy (CLEAR) 06/28/20 18:45 Urine pH 5.0 (5.0 - 8.0) 06/28/20 18:45 Ur Specific [place] 1.015 (1.000-1.030) 06/28/20 18:45 Urine Protein 2+ (NEGATIVE) 06/28/20 18:45 Urine Glucose (UA) 4+ (NEGATIVE) 06/28/20 18:45 Urine Ketones Negative (NEGATIVE) 06/28/20 18:45 Urine Occult Blood 3+ (NEGATIVE) 06/28/20 18:45 Urine Nitrite Negative (NEGATIVE) 06/28/20 18:45 Urine Bilirubin Negative (NEGATIVE) 06/28/20 18:45 Urine Urobilinogen Normal (NORMAL) 06/28/20 18:45 Ur Leukocyte Esterase 3+ (NEGATIVE) 06/28/20 18:45 Urine RBC None seen /HPF (0-3) 06/28/20 18:45 Urine WBC Tntc /HPF (0-5) A 06/28/20 18:45 Ur Squamous Epith Cells Moderate /HPF (NEGATIVE) 06/28/20 18:45 Urine Bacteria 3+ /HPF (NEGATIVE) 06/28/20 18:45 Ur Culture Indicated? No/not indicated 06/28/20 18:45 SARS CoV-2 RNA Rapid CRISTINA Positive (NEGATIVE) A 06/28/20 14:12 Plan (1) E. coli urinary tract infection: Status: Acute (2) E coli bacteremia: Status: Acute (3) COVID-19 virus infection: Status: Acute (4) Uncontrolled diabetes mellitus: Status: Acute Qualifiers: Diabetes mellitus type: type 2 Glycemic state: with hyperglycemia Qualified Code(s): E11.65 - Type 2 diabetes mellitus with hyperglycemia (5) Generalized weakness: Status: Acute (6) Acute renal failure (ARF): Status: Acute Qualifiers: Acute renal failure type: unspecified Qualified Code(s): N17.9 - Acute kidney failure, unspecified (7) Hyponatremia: Status: Acute
[2020-07-01] MEDS: ROCEPHIN VIAL 1 GRAM 1 G in NS 100 ML IV + SPIKE MINIBAG* 100 ML IV SCH ×2 (12:54→22:00)
[2020-07-01] MEDS: SYNTHROID 50 mcg TAB PO SCH (17:40)
[2020-07-01] MEDS: LANTUS SC SCH (21:00)
[2020-07-01] MEDS: SNACK - Diabetic Appropriate PO SCH (21:00)
[2020-07-01] MEDS: CRESTOR TAB 10 MG PO SCH (21:45)
[2020-07-02] MEDS: NS 1000 ML 1,000 ML IV SCH ×2 (04:00→17:48)
[2020-07-02] MEDS: DUONEB 0.5 MG/3 MG (3 mL) NEB SCH ×2 (05:00→21:30)
[2020-07-02] MEDS: HumuLIN R SC PRN ×3 (06:10→17:49)
[2020-07-02 06:46] LABS: BASOPHILS % (AUTO) 0.2 % (0.2-1.0); HEMATOCRIT 34.7 % (36.0-47.0); HEMOGLOBIN 11.7 g/dL (12.0-16.0); LYMPHOCYTES # (AUTO) 1.3 X10^3/uL (1.3-2.9); LYMPHOCYTES % (AUTO) 6.9 % (21.0-51.0); MEAN CORPUSCULAR HGB CONC 33.9 g/dL (33.0-35.0); MEAN CORPUSCULAR VOLUME 82.8 fL (80.0-100.0); MEAN PLATELET VOLUME 9.8 fL (7.4-11.0); MONOCYTES # (AUTO) 1.1 x10^3/uL (0.3-0.8); MONOCYTES % (AUTO) 5.8 % (0.0-13.0); NEUTROPHILS # (AUTO) 16.5 x10^3/uL (2.2-4.8); NEUTROPHILS % (AUTO) 87.1 % (42.0-75.0); PLATELET COUNT 202 X10^3/uL (150.0-450.0); RED BLOOD COUNT 4.19 X10^6/uL (3.5-5.4); RED CELL DISTRIBUTION WIDTH 14.7 % (11.6-16.5); WHITE BLOOD COUNT 18.9 X10^3/uL (3.6-10.0)
[2020-07-02 06:52] LABS: CALCIUM 8.9 mg/dL (8.5-10.1); CREATININE 1.39 mg/dL (0.55-1.02)
[2020-07-02] MEDS: NEURONTIN CAP 100 MG PO SCH ×3 (08:41→21:00)
[2020-07-02] MEDS: HEPARIN SODIUM INJ 5000 UNITS SC SCH ×2 (08:42→23:26)
[2020-07-02] MEDS: HYZAAR 50/12.5 MG PO SCH (08:42)
[2020-07-02] MEDS: DECADRON TAB PO SCH (08:42)
[2020-07-02] MEDS: ASPIRIN EC 81 MG PO SCH (08:42)
[2020-07-02 11:13] LABS: ABG BASE EXCESS -0.1 mmol/L (-2.0-2.0); ABG HCO3 23.9 mmol/L (22-26)
[2020-07-02 11:14] LABS: ABG ALLEN TEST POS
[2020-07-02] MEDS: SYNTHROID 50 mcg TAB PO SCH (17:22)
[2020-07-02] MEDS: APRESOLINE INJ 20 MG VIAL IVP PRN ×2 (17:41→22:30)
[2020-07-02] MEDS: SNACK - Diabetic Appropriate PO SCH (20:00)
[2020-07-02] MEDS: CRESTOR TAB 10 MG PO SCH (21:00)
[2020-07-02] MEDS: ROCEPHIN VIAL 1 GRAM 1 G in NS 100 ML IV + SPIKE MINIBAG* 100 ML IV SCH (22:00)
[2020-07-02] MEDS: LANTUS SC SCH (23:27)
[2020-07-03 00:17] LABS: CKMB % 13.5 % (<4)
[2020-07-03 00:25] LABS: CREATINE KINASE MB 16.6 ng/mL (0-4.0)
[2020-07-03 00:26] LABS: TROPONIN I 4.43 ng/mL (0-1.5)
[2020-07-03] MEDS ORDERED: PLAVIX PO STA (01:00)
[2020-07-03] MEDS ORDERED: HEPARIN SODIUM IN D5W 25,000 UNITS/500 ML BAG IV PRN (01:00)
[2020-07-03] MEDS ORDERED: ASPIRIN 81 MG CHEWTAB PO STA (01:02)
[2020-07-03] MEDS ORDERED: PLAVIX ONE (01:10)
[2020-07-03] MEDS ORDERED: LOPRESSOR TAB 25 MG ONE (01:10)
[2020-07-03] MEDS ORDERED: ASPIRIN 81 MG CHEWTAB ONE (01:10)
--- NOTE | 2020-07-03 01:10 | RAD ---
HISTORYchest painSTUDYCHEST, 1 [id number]/18/2020FINDINGSThe trachea is midline. The cardiac silhouette is stable. Interval development of right upper and middle lung zone opacities/infiltrates. No pleural effusion or pneumothorax.. The bony thorax is unremarkable.IMPRESSIONRight upper and middle lung zone patchy airspace opacity, which may represent atypical edema or infiltrate/pneumonia. Follow-up is recommended.Electronically signed by: Lisa Gerber (Jul 03, 2020 01:08:43)
[2020-07-03] MEDS ORDERED: HEPARIN SODIUM IN D5W 25,000 UNITS/500 ML BAG IV ONE (01:12)
[2020-07-03] MEDS: LOPRESSOR TAB 25 MG PO SCH ×2 (01:28→08:27)
[2020-07-03] MEDS ORDERED: HEPARIN SODIUM INJ 5000 UNITS ONE (02:32)
[2020-07-03] MEDS: DUONEB 0.5 MG/3 MG (3 mL) NEB SCH (05:54)
[2020-07-03] MEDS: NS 1000 ML 1,000 ML IV SCH (06:09)
[2020-07-03] MEDS: HumuLIN R SC PRN (06:10)
[2020-07-03 08:18] LABS: BASOPHILS # (AUTO) 0.1 X10^3/uL (0.0-0.1); BASOPHILS % (AUTO) 0.3 % (0.2-1.0); EOSINOPHILS % (AUTO) 0.2 % (0.9-2.9); HEMATOCRIT 34.1 % (36.0-47.0); HEMOGLOBIN 11.4 g/dL (12.0-16.0); LYMPHOCYTES % (AUTO) 9.5 % (21.0-51.0); MEAN CORPUSCULAR HGB CONC 33.6 g/dL (33.0-35.0); MEAN CORPUSCULAR VOLUME 83.5 fL (80.0-100.0); MEAN PLATELET VOLUME 9.8 fL (7.4-11.0); MONOCYTES # (AUTO) 1.1 x10^3/uL (0.3-0.8); MONOCYTES % (AUTO) 5.2 % (0.0-13.0); NEUTROPHILS % (AUTO) 84.8 % (42.0-75.0); PLATELET COUNT 220 X10^3/uL (150.0-450.0); RED BLOOD COUNT 4.08 X10^6/uL (3.5-5.4); RED CELL DISTRIBUTION WIDTH 14.6 % (11.6-16.5); WHITE BLOOD COUNT 21.3 X10^3/uL (3.6-10.0)
[2020-07-03 08:23] LABS: CALCIUM 8.9 mg/dL (8.5-10.1); CARBON DIOXIDE 23.4 mmol/L (21-32); CREATININE 1.33 mg/dL (0.55-1.02)
[2020-07-03] MEDS: HYZAAR 50/12.5 MG PO SCH (08:26)
[2020-07-03] MEDS: ASPIRIN EC 81 MG PO SCH (08:26)
[2020-07-03] MEDS: NEURONTIN CAP 100 MG PO SCH (08:27)
[2020-07-03 08:55] LABS: PLATELET MORPHOLOGY COMMENT NORMAL (NORMAL)
[2020-07-03] MEDS ORDERED: PLAVIX PO SCH (09:00)
[2020-07-03 09:03] LABS: CKMB % 14.6 % (<4)
[2020-07-03 09:12] LABS: CREATINE KINASE MB 32.4 ng/mL (0-4.0); TROPONIN I 18.13 ng/mL (0-1.5)
--- NOTE | 2020-07-03 10:26 | RAD ---
HISTORYElevated cardiac enzymesSTUDYCHEST, 1 [id number]/20/2020FINDINGSCardiac silhouette and pulmonary vasculature are unchanged. There is similar increased interstitial opacities involving the right perihilar and right upper lung. No new or increasing consolidation. No pleural effusion or pneumothorax.IMPRESSIONStable appearance of the chest with patchy opacity in the right upper and midlung, may reflect atypical edema or infiltrate.Electronically signed by: Kendell Munoz (Jul 03, 2020 10:24:35)
[2020-07-03 10:35] LABS: ABG BASE EXCESS 0.8 mmol/L (-2.0-2.0); ABG HCO3 24.2 mmol/L (22-26)
[2020-07-03 10:36] LABS: ABG ALLEN TEST POS
[2020-07-03] MEDS ORDERED: ZITHROMAX INJ 500 MG VIAL 500 MG in NS 250 ML IV 250 ML IV SCH (11:00)
[2020-07-03 12:28] VITALS: BP 116/86
== END 2020-07-03 10:20 | disposition short-term general hospital (02) | DRG 871 ==
LOC: OBS 13:55 → ICU 15:09 → MED/SURG 06-29 14:45
PROVIDERS: ADMIT Internal Medicine; ATTEND Internal Medicine
DX: R79.89 Other specified abnormal findings of blood chemistry; R65.20 Severe sepsis without septic shock; J12.89 Other viral pneumonia; R94.31 Abnormal electrocardiogram [ECG] [EKG]; R26.89 Other abnormalities of gait and mobility; E11.65 Type 2 diabetes mellitus with hyperglycemia; B96.29 Other Escherichia coli [E. coli] as the cause of diseases classified elsewhere; N30.00 Acute cystitis without hematuria; R79.82 Elevated C-reactive protein (CRP); E87.1 Hypo-osmolality and hyponatremia; A41.51 Sepsis due to Escherichia coli [E. coli]; N17.8 Other acute kidney failure; U07.1 COVID-19; R53.1 Weakness

== ENCOUNTER 2020-10-03 13:01 | Observation (INO) ==
[2020-10-03 14:51] LABS: BASOPHILS # (AUTO) 0.1 X10^3/uL (0.0-0.1); EOSINOPHILS # (AUTO) 0.2 x10^3/uL (0.0-0.2); HEMATOCRIT 32.2 % (36.0-47.0); LYMPHOCYTES # (AUTO) 2.4 X10^3/uL (1.3-2.9); LYMPHOCYTES % (AUTO) 23.7 % (21.0-51.0); MEAN CORPUSCULAR HEMOGLOBIN 28.6 pg (27.0-34.0); MEAN CORPUSCULAR HGB CONC 34.1 g/dL (33.0-35.0); MEAN CORPUSCULAR VOLUME 83.9 fL (80.0-100.0); MEAN PLATELET VOLUME 9.4 fL (7.4-11.0); MONOCYTES # (AUTO) 0.7 x10^3/uL (0.3-0.8); MONOCYTES % (AUTO) 7.5 % (0.0-13.0); NEUTROPHILS # (AUTO) 6.5 x10^3/uL (2.2-4.8); NEUTROPHILS % (AUTO) 65.8 % (42.0-75.0); PLATELET COUNT 184 X10^3/uL (150.0-450.0); RED BLOOD COUNT 3.84 X10^6/uL (3.5-5.4); RED CELL DISTRIBUTION WIDTH 16.8 % (11.6-16.5); WHITE BLOOD COUNT 9.9 X10^3/uL (3.6-10.0)
[2020-10-03 15:08] LABS: BLOOD UREA NITROGEN 43 mg/dL (7-18); CALCIUM 10.1 mg/dL (8.5-10.1); CARBON DIOXIDE 29.7 mmol/L (21-32); CHLORIDE 98 mmol/L (98-107); COR NA(FOR HYPERGLY) 140 mmol/L (136-145); CREATININE 3.18 mg/dL (0.55-1.02); SODIUM 137 mmol/L (136-145); TROPONIN I 0.02 ng/mL (0-1.5); eGFR NON BLACK RACES 15 (>60)
[2020-10-03 15:12] LABS: ALANINE AMINOTRANSFERASE 18 Units/L (12-78); ALBUMIN 3.4 g/dL (3.4-5.0); ALKALINE PHOSPHATASE 61 Units/L (46-116); ASPARTATE AMINO TRANSFERASE 17 Units/L (15-37); CKMB % 2.8 % (<4); CREATINE KINASE 39 Units/L (26-192); CREATINE KINASE MB 1.1 ng/mL (0-4.0); TOTAL PROTEIN 7.4 g/dL (6.4-8.2)
[2020-10-03] MEDS ORDERED: NORCO 7.5/325 MG TAB PO PRN (15:28)
[2020-10-03 15:49] VITALS: BMI 28.1
--- NOTE | 2020-10-03 16:28 | DR.H&P ---
H&P History & Physical for Day of: H&P Date: 10/03/20 Chief Complaint Chief Complaint: weakness, dizzy spells Allergies Allergies Allergy/AdvReac Type Severity Reaction Status Date / Time No Known Drug Allergies Allergy Verified 06/15/20 11:08 History of Present Illness History of Present Illness: Ms Lu is a 75y/o female with a PMH of multi- vessel CAD s/p PCI, HTN, HLD and Type 2 DM who was directly admitted for worsening weakness, dizzy spells and poor oral intake. Patient was being treated for Pseudomonas UTI outpatient with Levaquin but continued to get worse. She was seen in the ED on 09/28/20 and was treated for vertigo and discharged home. Patient had another spell at night when she was going to the bathroom and felt like her legs were giving out. Daughter reports patient is very weak, unable to ambulate without assistance. Also reports poor appetite. Family also states patient had some intermittent confusion over the past week. Denies fever or chills. No URI sx. No abdominal or flank pain. On exam, patient is alert and oriented, able to answer questions appropriately. COVID-19 negative Plan: Will admit for UTI, generalized weakness and dizziness. Check CBC, CMP, Troponin, BNP and CXR. Start gentle hydration with NS at 75cc/hr, monitor UOP and strict input/output. Start Zosyn for Pseudomonas UTI. Patient was scheduled for outpatient carotid U/S tomorrow but will order it inpatient to rule out carotid stenosis. Resume home medications. Hold nephrotoxic medications. Monitor AM labs/imaging. Continue telemetry and fall precautions. Vitals as per protocol. PT/OT as tolerated. Past Medical History Past Medical History: Arthritis, Coronary Artery Disease, Diabetes, Dyslipidemia and Hypertension Past Surgical History Surgical History: Hysterectomy Additional Surgical History: PCI Family History Family Medical History: Diabetes Mellitus, MD and Hypertension Social History Alcohol Use: None Drug Use: None Prescription drug monitoring program results: PDMP reviewed and no concerns identified Medications Home Medications: No Known Drug Allergies Allergy (Verified 06/15/20 11:08) Labs Result Diagrams: 10/04/20 04:40 10/04/20 04:40 Labs: Laboratory WBC 9.9 X10^3/uL (3.6-10.0) 10/03/20 14:38 RBC 3.84 X10^6/uL (3.5-5.4) 10/03/20 14:38 Hgb 11.0 g/dL (12.0-16.0) L 10/03/20 14:38 Hct 32.2 % (36.0-47.0) L 10/03/20 14:38 MCV 83.9 fL (80.0-100.0) 10/03/20 14:38 MCH 28.6 pg (27.0-34.0) 10/03/20 14:38 MCHC 34.1 g/dL (33.0-35.0) 10/03/20 14:38 RDW 16.8 % (11.6-16.5) H 10/03/20 14:38 Plt Count 184 X10^3/uL (150.0-450.0) 10/03/20 14:38 MPV 9.4 fL (7.4-11.0) 10/03/20 14:38 Neut % (Auto) 65.8 % (42.0-75.0) 10/03/20 14:38 Lymph % (Auto) 23.7 % (21.0-51.0) 10/03/20 14:38 [place] % (Auto) 7.5 % (0.0-13.0) 10/03/20 14:38 Eos % (Auto) 2.0 % (0.9-2.9) 10/03/20 14:38 Baso % (Auto) 1.0 % (0.2-1.0) 10/03/20 14:38 Neut # (Auto) 6.5 x10^3/uL (2.2-4.8) H 10/03/20 14:38 Lymph # (Auto) 2.4 X10^3/uL (1.3-2.9) 10/03/20 14:38 [place] # (Auto) 0.7 x10^3/uL (0.3-0.8) 10/03/20 14:38 Eos # (Auto) 0.2 x10^3/uL (0.0-0.2) 10/03/20 14:38 Baso # (Auto) 0.1 X10^3/uL (0.0-0.1) 10/03/20 14:38 Absolute Nucleated RBC 0.2 /100WBC 10/03/20 14:38 Sodium 137 mmol/L (136-145) 10/03/20 14:38 Corrected Sodium 140 mmol/L (136-145) 10/03/20 14:38 Potassium 3.8 mmol/L (3.5-5.1) 10/03/20 14:38 Chloride 98 mmol/L (98-107) 10/03/20 14:38 Carbon Dioxide 29.7 mmol/L (21-32) 10/03/20 14:38 BUN 43 mg/dL (7-18) H 10/03/20 14:38 Creatinine 3.18 mg/dL (0.55-1.02) H 10/03/20 14:38 Est GFR (MDRD) Af Amer 18 (>60) L 10/03/20 14:38 Est GFR (MDRD) Non-Af 15 (>60) L 10/03/20 14:38 Glucose 243 mg/dL (65-99) H 10/03/20 14:38 Calcium 10.1 mg/dL (8.5-10.1) 10/03/20 14:38 Corrected Calcium TNP 10/03/20 14:38 Total Bilirubin 0.60 mg/dL (0.2-1.0) 10/03/20 14:38 AST 17 Units/L (15-37) 10/03/20 14:38 ALT 18 Units/L (12-78) 10/03/20 14:38 Alkaline Phosphatase 61 Units/L (46-116) 10/03/20 14:38 Creatine Kinase 39 Units/L (26-192) 10/03/20 14:38 CK-MB (CK-2) 1.1 ng/mL (0-4.0) 10/03/20 14:38 CK/CKMB % Calc 2.8 % (<4) 10/03/20 14:38 Troponin I 0.02 ng/mL (0-1.5) 10/03/20 14:38 B-Natriuretic Peptide 162 pg/mL (0-79) H 10/03/20 14:38 Total Protein 7.4 g/dL (6.4-8.2) 10/03/20 14:38 Albumin 3.4 g/dL (3.4-5.0) 10/03/20 14:38 Globulin 4.0 g/dL (2.5-4.5) 10/03/20 14:38 Albumin/Globulin Ratio 0.9 Ratio (1.1-2.1) L 10/03/20 14:38 SARS CoV-2 RNA Rapid CRISTINA Negative (NEGATIVE) 10/03/20 14:28 Review of Systems Constitutional: Weakness and Malaise Eyes: No Symptoms Reported ENT: No Symptoms Reported Respiratory: No Symptoms Reported Cardiovascular: [place] Gastrointestinal: No Symptoms Reported Genitourinary: Frequency Musculoskeletal: Back Pain and Neck Pain Skin: No Symptoms Reported Neurological: Confusion Physical Exam Vital Signs: Temperature 98.2 F Pulse Rate [Left Brachial] 67 Respiratory Rate 20 Blood Pressure [Left Arm] 156/65 O2 Sat by Pulse Oximetry 100 Oriented: Normal Eyes: Normal Ear: Normal Nose: Normal Throat: Normal Respiratory: Clear Throughout Cardiovascular: Normal Auscultation: Bowel Sounds: Normal Palpation: Normal Tenderness: Normal Skin: Decreased Turgur Musculoskeletal: Back:Lumbar and Back:Paraspinous Psychiatric: Normal Mood Description: Calm and Appropriate Affect: Normal Speech Pattern: Clear and Appropriate Assessment/Plan (1) Pseudomonas urinary tract infection: Status: Acute (2) Acute renal failure (ARF): Qualifiers: Acute renal failure type: unspecified Qualified Code(s): N17.9 - Acute kidney failure, unspecified Status: Acute (3) Generalized weakness: Status: Acute (4) Anemia, normocytic normochromic: Status: Acute (5) DM type 2, uncontrolled, with neuropathy: Status: Chronic (6) DDD (degenerative disc disease), lumbar: Status: Chronic (7) CAD (coronary artery disease): Qualifiers: Coronary Disease-Associated Artery/Lesion type: unspecified vessel or lesion type [place] vs. transplanted heart: [place] heart Associated angina: without angina Qualified Code(s): I25.10 - Atherosclerotic heart disease of [place] coronary artery without angina pectoris Status: Acute Review H&P Reviewed: Yes Patient was examined?: Yes
--- NOTE | 2020-10-03 16:36 | RAD ---
EXAM: CHEST X-RAYHISTORY: Shortness of breath. Dehydration. Urinary tract infection. MS.TECHNIQUE: AP chest x-ray dated October 04, 2019 at 2:29 PM.COMPARISON: CXR dated September 28, 2020FINDINGS:The heart size and mediastinum are within normal limits. The lung villalta and costophrenic angles are clear. There is no acute parenchymal infiltrate, pleural effusion, or pneumothorax seen. The visualized bony structures are within normal limits.IMPRESSION:1. No evidence for acute cardiopulmonary disease seen.2. No significant interval change from the previous exam.Electronically signed by: Nicole Arroyo (Oct 03, 2020 16:34:35)
[2020-10-03] MEDS: NS 1000 ML 1,000 ML IV SCH (17:20)
[2020-10-03] MEDS: ZOSYN VIAL 3.375 GRAMS 3.375 G in NS 100 ML IV + SPIKE MINIBAG* 100 ML IV SCH ×2 (17:40→22:26)
[2020-10-03] MEDS: BRILINTA PO SCH (20:09)
[2020-10-03] MEDS: COREG TAB 6.25 MG PO SCH (20:09)
[2020-10-03] MEDS: HumuLIN R SC PRN (20:10)
[2020-10-04 02:53] LABS: BILIRUBIN,URINE NEGATIVE (NEGATIVE); BLOOD/HEMOGLOBIN,URINE NEGATIVE (NEGATIVE); GLUCOSE, URINE 2+ (NEGATIVE); KETONES,URINE NEGATIVE (NEGATIVE); LEUKOCYTE ESTERASE ,URINE NEGATIVE (NEGATIVE); NITRITES,URINE NEGATIVE (NEGATIVE); PROTEIN,URINE NEGATIVE (NEGATIVE); UROBILINOGEN,URINE NORMAL (NORMAL)
[2020-10-04 02:56] LABS: APPEARANCE,URINE CLEAR (CLEAR); COLOR,URINE STRAW (YELLOW)
[2020-10-04 05:28] LABS: BASOPHILS % (AUTO) 0.3 % (0.2-1.0); EOSINOPHILS # (AUTO) 0.2 x10^3/uL (0.0-0.2); EOSINOPHILS % (AUTO) 2.1 % (0.9-2.9); HEMATOCRIT 29.3 % (36.0-47.0); HEMOGLOBIN 9.9 g/dL (12.0-16.0); LYMPHOCYTES # (AUTO) 2.3 X10^3/uL (1.3-2.9); LYMPHOCYTES % (AUTO) 25.9 % (21.0-51.0); MEAN CORPUSCULAR HEMOGLOBIN 28.4 pg (27.0-34.0); MEAN CORPUSCULAR HGB CONC 33.8 g/dL (33.0-35.0); MEAN CORPUSCULAR VOLUME 83.8 fL (80.0-100.0); MEAN PLATELET VOLUME 9.7 fL (7.4-11.0); MONOCYTES # (AUTO) 0.7 x10^3/uL (0.3-0.8); MONOCYTES % (AUTO) 8.4 % (0.0-13.0); NEUTROPHILS # (AUTO) 5.6 x10^3/uL (2.2-4.8); NEUTROPHILS % (AUTO) 63.3 % (42.0-75.0); PLATELET COUNT 146 X10^3/uL (150.0-450.0); RED CELL DISTRIBUTION WIDTH 16.5 % (11.6-16.5); WHITE BLOOD COUNT 8.8 X10^3/uL (3.6-10.0)
[2020-10-04 05:30] LABS: CALCIUM 9.6 mg/dL (8.5-10.1); CARBON DIOXIDE 28.5 mmol/L (21-32); CREATININE 3.2 mg/dL (0.55-1.02)
[2020-10-04] MEDS: NS 1000 ML 1,000 ML IV SCH ×2 (05:33→19:38)
[2020-10-04] MEDS: ZOSYN VIAL 3.375 GRAMS 3.375 G in NS 100 ML IV + SPIKE MINIBAG* 100 ML IV SCH ×2 (05:34→20:40)
[2020-10-04] MEDS: HumuLIN R SC PRN ×3 (05:34→20:40)
[2020-10-04] MEDS ORDERED: LOVENOX INJ 30 MG SYR SC SCH (09:00)
[2020-10-04] MEDS ORDERED: HEPARIN SODIUM INJ 5000 UNITS ONE (09:28)
[2020-10-04] MEDS ORDERED: LANTUS SC ONE (09:29)
[2020-10-04] MEDS: SYNTHROID 50 mcg TAB PO SCH (09:40)
[2020-10-04] MEDS: HEPARIN SODIUM INJ 5000 UNITS SC SCH ×2 (09:40→20:40)
[2020-10-04] MEDS: BRILINTA PO SCH ×2 (09:40→20:40)
[2020-10-04] MEDS: ASPIRIN EC 81 MG PO SCH (09:40)
[2020-10-04] MEDS: COREG TAB 6.25 MG PO SCH ×2 (09:40→20:40)
[2020-10-04] MEDS: LANTUS SC SCH (09:41)
[2020-10-04] MEDS ORDERED: K-DUR TAB 20 MEQ PO PRN (09:52)
[2020-10-04] MEDS ORDERED: POTASSIUM CHLORIDE LIQ 20 MEQ UDC PO PRN (09:52)
[2020-10-04] MEDS ORDERED: KLOR-CON PO PRN (09:52)
[2020-10-04] MEDS ORDERED: POTASSIUM CHL 60 MEQ/NS 0.45% 500 ML IV PRN (09:52)
[2020-10-04] MEDS ORDERED: POTASSIUM CHL 40 MEQ/NS 0.45% 500 ML IV PRN (09:52)
[2020-10-04] MEDS ORDERED: K-RIDER 10 MEQ/NS 100 ML 10 MEQ/100 ML BAG IV PRN (09:52)
[2020-10-04] MEDS ORDERED: MICRO K EXTEN CAP 10 MEQ PO PRN (09:52)
--- NOTE | 2020-10-04 09:57 | PCM.PROG ---
Progress Note Progress Note for Day of Date of Exam: 10/04/20 Subjective Subjective: Patient seen at bedside. Overnight, patient had quigley placed due to feeling weak with ambulating to the commode. Good urine output after quigley placement, she states she felt much better. Denies fever or chills. She is on room air. She reports appetite is ok. Patient complaining of neck pain/ stiffness. This has been going on for a while, she has had several falls due to dizziness. Labs: WBC 8.8 Plt 146 Hgb 9.9 Glucose 254 BUN/Cr: 46/3.20 K: 3.4 CXR: no effusion or infiltrated noted. Plan: will increase IVF to 100cc/hr, monitor UOP, strict I/Os. Check lactic acid. Order renal U/S. Follow up on carotid U/S. Continue Zosyn. Order blood Cx. Check orthostatic vitals. Continue home medications. Start Lantus and SSI. Replace K, check Mag. Order cervical XR. Monitor AM labs/imaging. Past Medical Family Social History Past Med/Fam/Surg Hx: No changes since H&P Allergies: Allergies No Known Drug Allergies Allergy (Verified 06/15/20 11:08) Review of Systems ROS: No change since H&P Vital Signs and I&O's Vital Signs: Temperature 97.9 F Pulse Rate [Left Brachial] 58 Respiratory Rate 18 Blood Pressure [Left Arm] 97/53 O2 Sat by Pulse Oximetry 98 Intake and Output: Intake & Output 10/01/20 10/02/20 10/03/20 10/04/20 23:59 23:59 23:59 23:59 Intake Total 480 / 480 469 / 469 Output Total 765 / 765 Balance 480 / 480 -296 / -296 Physical Exam Oriented: Normal Eyes: Normal Ear: Normal Nose: Normal Throat: Normal Respiratory: Normal Cardiovascular: Normal Auscultation: Bowel Sounds: Normal Tenderness: Normal Skin: Decreased Turgur Musculoskeletal: Back:Lumbar, Back:Paraspinous and Tender Psychiatric: Normal Mood Description: Calm and Appropriate Affect: Normal Speech Pattern: Clear and Appropriate Laboratory and Diagnostics Result Diagrams: 10/04/20 04:40 10/04/20 04:40 Labs: Laboratory WBC 8.8 X10^3/uL (3.6-10.0) 10/04/20 04:40 RBC 3.50 X10^6/uL (3.5-5.4) 10/04/20 04:40 Hgb 9.9 g/dL (12.0-16.0) L 10/04/20 04:40 Hct 29.3 % (36.0-47.0) L 10/04/20 04:40 MCV 83.8 fL (80.0-100.0) 10/04/20 04:40 MCH 28.4 pg (27.0-34.0) 10/04/20 04:40 MCHC 33.8 g/dL (33.0-35.0) 10/04/20 04:40 RDW 16.5 % (11.6-16.5) 10/04/20 04:40 Plt Count 146 X10^3/uL (150.0-450.0) L 10/04/20 04:40 MPV 9.7 fL (7.4-11.0) 10/04/20 04:40 Neut % (Auto) 63.3 % (42.0-75.0) 10/04/20 04:40 Lymph % (Auto) 25.9 % (21.0-51.0) 10/04/20 04:40 [place] % (Auto) 8.4 % (0.0-13.0) 10/04/20 04:40 Eos % (Auto) 2.1 % (0.9-2.9) 10/04/20 04:40 Baso % (Auto) 0.3 % (0.2-1.0) 10/04/20 04:40 Neut # (Auto) 5.6 x10^3/uL (2.2-4.8) H 10/04/20 04:40 Lymph # (Auto) 2.3 X10^3/uL (1.3-2.9) 10/04/20 04:40 [place] # (Auto) 0.7 x10^3/uL (0.3-0.8) 10/04/20 04:40 Eos # (Auto) 0.2 x10^3/uL (0.0-0.2) 10/04/20 04:40 Baso # (Auto) 0.0 X10^3/uL (0.0-0.1) 10/04/20 04:40 Absolute Nucleated RBC 0.0 /100WBC 10/04/20 04:40 Sodium 137 mmol/L (136-145) 10/04/20 04:40 Corrected Sodium 141 mmol/L (136-145) 10/04/20 04:40 Potassium 3.4 mmol/L (3.5-5.1) L 10/04/20 04:40 Chloride 99 mmol/L (98-107) 10/04/20 04:40 Carbon Dioxide 28.5 mmol/L (21-32) 10/04/20 04:40 BUN 46 mg/dL (7-18) H 10/04/20 04:40 Creatinine 3.20 mg/dL (0.55-1.02) H 10/04/20 04:40 Est GFR (MDRD) Af Amer 18 (>60) L 10/04/20 04:40 Est GFR (MDRD) Non-Af 15 (>60) L 10/04/20 04:40 Glucose 254 mg/dL (65-99) H 10/04/20 04:40 POC Glucose (mg/dL) 226 mg/dL (65-99) H 10/04/20 05:06 Lactic Acid 2.8 mmol/L (0.4-2.0) H 10/04/20 09:07 Calcium 9.6 mg/dL (8.5-10.1) 10/04/20 04:40 Corrected Calcium TNP 10/03/20 14:38 Total Bilirubin 0.60 mg/dL (0.2-1.0) 10/03/20 14:38 AST 17 Units/L (15-37) 10/03/20 14:38 ALT 18 Units/L (12-78) 10/03/20 14:38 Alkaline Phosphatase 61 Units/L (46-116) 10/03/20 14:38 Creatine Kinase 39 Units/L (26-192) 10/03/20 14:38 CK-MB (CK-2) 1.1 ng/mL (0-4.0) 10/03/20 14:38 CK/CKMB % Calc 2.8 % (<4) 10/03/20 14:38 Troponin I 0.02 ng/mL (0-1.5) 10/03/20 14:38 B-Natriuretic Peptide 162 pg/mL (0-79) H 10/03/20 14:38 Total Protein 7.4 g/dL (6.4-8.2) 10/03/20 14:38 Albumin 3.4 g/dL (3.4-5.0) 10/03/20 14:38 Globulin 4.0 g/dL (2.5-4.5) 10/03/20 14:38 Albumin/Globulin Ratio 0.9 Ratio (1.1-2.1) L 10/03/20 14:38 Specimen Type Catherized urine 10/04/20 02:23 Urine Color Straw (YELLOW) 10/04/20 02:23 Urine Appearance Clear (CLEAR) 10/04/20 02:23 Urine pH 6.0 (5.0 - 8.0) 10/04/20 02:23 Ur Specific [place] 1.005 (1.000-1.030) 10/04/20 02:23 Urine Protein Negative (NEGATIVE) 10/04/20 02:23 Urine Glucose (UA) 2+ (NEGATIVE) 10/04/20 02:23 Urine Ketones Negative (NEGATIVE) 10/04/20 02:23 Urine Occult Blood Negative (NEGATIVE) 10/04/20 02:23 Urine Nitrite Negative (NEGATIVE) 10/04/20 02:23 Urine Bilirubin Negative (NEGATIVE) 10/04/20 02:23 Urine Urobilinogen Normal (NORMAL) 10/04/20 02:23 Ur Leukocyte Esterase Negative (NEGATIVE) 10/04/20 02:23 SARS CoV-2 RNA Rapid CRISTINA Negative (NEGATIVE) 10/03/20 14:28 Plan (1) Pseudomonas urinary tract infection: Status: Acute (2) Acute renal failure (ARF): Status: Acute Qualifiers: Acute renal failure type: unspecified Qualified Code(s): N17.9 - Acute kidney failure, unspecified (3) Generalized weakness: Status: Acute (4) Anemia, normocytic normochromic: Status: Acute (5) DM type 2, uncontrolled, with neuropathy: Status: Chronic (6) DDD (degenerative disc disease), lumbar: Status: Chronic (7) CAD (coronary artery disease): Status: Acute Qualifiers: Associated angina: without angina Coronary Disease-Associated Artery/Lesion type: unspecified vessel or lesion type [place] vs. transplanted heart: [place] heart Qualified Code(s): I25.10 - Atherosclerotic heart disease of [place] coronary artery without angina pectoris
--- NOTE | 2020-10-04 12:09 | RAD ---
HISTORYNECK PAIN, FALL DE, HTN, DM, UTERINE CANCER, STENTS, CATARACTS, HYTERECTOMYSTUDYCERVICAL SPINE, AP/LATCOMPARISONNoneFINDINGSStudy limited due to patient body habitus and positioning. Moderate multilevel cervical spine degenerative changes. Normal cervical spinal alignment. No evidence for acute fracture can be identified.IMPRESSIONNo acute cervical spine fracture within limits.Electronically signed by: TAMIA VALDEZ (Oct 04, 2020 12:07:01)
--- NOTE | 2020-10-04 15:41 | VAS ---
HISTORYSYNCOPEConcern for carotid artery stenosis. Carotid atherosclerosis.EXAM: BILATERAL DOPPLER CAROTID ULTRASOUND EXAMTechnique: Multiple kearney scale and color flow Doppler images of the right and left carotid arterial system were obtained. The vertebral arterial system was evaluated as well.Findings:Nonocclusive color flow Doppler is seen throughout the right and left carotid arterial system. No hemodynamically significant carotid arterial stenosis is seen based on velocity criteria. There is moderate bilateral carotid atherosclerosis and mixed atherosclerotic plaque formation of the bilateral carotid bulbs and ICAs with associated intimal thickening but [without] evidence for high-grade stenosis (>70%) or occlusion of the carotid arteries. The right and left vertebral artery demonstrate antegrade flow.IMPRESSION:Moderate bilateral carotid atherosclerosis and mixed atherosclerotic plaque formation of the bilateral carotid bulbs and [in both] ICAs with moderate associated carotid intimal thickening but without evidence for any associated high-grade stenosis or occlusion of the carotid arteries, based on Doppler velocity criteria. Appropriate, antegrade, vertebral arterial flow.Peak right ICA velocity: 85 centimeter/seconds.Peak right CCA velocity: 121 centimeter/seconds.Peak left ICA velocity: 75 centimeter/seconds.Peak left CCA velocity: 79 centimeter/seconds.Right ICA to CCA ratio: 1.3.Left ICA to CCA ratio: 1.0.Electronically signed by: LESVIA WARNER III (Oct 04, 2020 15:39:58)
[2020-10-04 15:50] LABS: LACTIC ACID 1.9 mmol/L (0.4-2.0)
--- NOTE | 2020-10-04 16:18 | US ---
HISTORYWORSENING RENAL FUNCTIONSTUDYRENAL USCOMPARISONTECHNIQUEMultiple kearney scale and color flow Doppler images of the kidneys were obtained. The region of the urinary bladder was evaluated as well.FINDINGSThe right kidney is normal in echotexture and size. The right kidney measures 7.7 cm in length by 4.5 cm AP x 5 cm transverse with a cortical thickness of 1.7 cm. Normal vascular flow is observed with a resistance index of 0.59. No focal mass, hydronephrosis, or stones identified.The left kidney is unremarkable in its echotexture and size. The left kidney measures 7.0 cm in length by 4.6 cm AP x 4.6 cm transverse with a cortical thickness of 1.2 cm. Normal vascular flow is seen in the left kidney with a resistance index 0.56.. . No focal mass, hydronephrosis, or stone can be seen within the left kidney.The bladder is decompressed at time of the exam with a Garcia balloon catheter in place.IMPRESSIONUnremarkable evaluation of the kidneys.The bladder is decompressed with a Garcia balloon in place.Electronically signed by: BLANCHE CANTRELL (Oct 04, 2020 16:15:54)
[2020-10-04 17:09] LABS: CALCIUM 9.1 mg/dL (8.5-10.1); CARBON DIOXIDE 28.8 mmol/L (21-32); CREATININE 3.28 mg/dL (0.55-1.02)
[2020-10-04] MEDS: LIPITOR TAB 80 MG PO SCH (20:40)
[2020-10-04] MEDS: SNACK - Diabetic Appropriate PO SCH (20:40)
[2020-10-05 05:14] LABS: CALCIUM 8.9 mg/dL (8.5-10.1); CARBON DIOXIDE 28.3 mmol/L (21-32); CREATININE 2.97 mg/dL (0.55-1.02)
[2020-10-05 05:25] LABS: BASOPHILS % (AUTO) 0.4 % (0.2-1.0); EOSINOPHILS # (AUTO) 0.2 x10^3/uL (0.0-0.2); HEMATOCRIT 27.2 % (36.0-47.0); HEMOGLOBIN 9.3 g/dL (12.0-16.0); LYMPHOCYTES # (AUTO) 2.3 X10^3/uL (1.3-2.9); LYMPHOCYTES % (AUTO) 29.6 % (21.0-51.0); MEAN CORPUSCULAR HEMOGLOBIN 28.5 pg (27.0-34.0); MEAN CORPUSCULAR HGB CONC 34.1 g/dL (33.0-35.0); MEAN CORPUSCULAR VOLUME 83.4 fL (80.0-100.0); MEAN PLATELET VOLUME 9.6 fL (7.4-11.0); MONOCYTES # (AUTO) 0.8 x10^3/uL (0.3-0.8); MONOCYTES % (AUTO) 10.6 % (0.0-13.0); NEUTROPHILS # (AUTO) 4.4 x10^3/uL (2.2-4.8); NEUTROPHILS % (AUTO) 56.4 % (42.0-75.0); PLATELET COUNT 138 X10^3/uL (150.0-450.0); RED BLOOD COUNT 3.27 X10^6/uL (3.5-5.4); RED CELL DISTRIBUTION WIDTH 16.9 % (11.6-16.5); WHITE BLOOD COUNT 7.7 X10^3/uL (3.6-10.0)
[2020-10-05] MEDS: ZOSYN VIAL 3.375 GRAMS 3.375 G in NS 100 ML IV + SPIKE MINIBAG* 100 ML IV SCH ×2 (09:04→21:30)
[2020-10-05] MEDS: HEPARIN SODIUM INJ 5000 UNITS SC SCH ×2 (09:04→20:42)
[2020-10-05] MEDS: BRILINTA PO SCH ×2 (09:05→20:43)
[2020-10-05] MEDS: COREG TAB 6.25 MG PO SCH ×2 (09:05→20:43)
[2020-10-05] MEDS: ASPIRIN EC 81 MG PO SCH (09:06)
[2020-10-05] MEDS: LANTUS SC SCH (09:08)
--- NOTE | 2020-10-05 10:37 | RAD ---
HISTORYPULMONARY EDEMA, CRACKLESSTUDYCHEST x-ray, 1 VIEWCOMPARISONX-ray 10/03/2020FINDINGSThe trachea is midline. The cardiac silhouette is normal in size. Mild calcification is seen of the aortic arch.Lungs appear clear. No pneumothorax or pleural effusion is seen.No acute bony abnormality is seen.IMPRESSIONNo acute cardiopulmonary abnormality is seen.Electronically signed by: John Smith (Oct 05, 2020 10:35:31)
[2020-10-05] MEDS: SYNTHROID 50 mcg TAB PO SCH (11:32)
[2020-10-05] MEDS: NS 1000 ML 1,000 ML IV SCH ×3 (11:33→22:08)
--- NOTE | 2020-10-05 13:19 | PCM.PROG ---
Progress Note Progress Note for Day of Date of Exam: 10/05/20 Subjective Subjective: Patient seen at bedside. No acute overnight events. Patient states she slept well. She feels slightly better. She did work with PT/OT but was tired quickly. She got dizzy when standing up with PT. She had positive orthostatics. Her appetite is better. Denies fever or chills. Denies difficulty breathing or chest pain. Labs: WBC 7.7 Plt 138 Hgb 9.3 Glucose 118 BUN/Cr: 41/2.97 K: 3.3 Carotid U/S: bilateral moderate plaque burden, no high grade stenosis Renal U/S: no stones or hydronephrosis, normal exam Cervical XR: chronic arthritis, no acute fracture Plan: Continue PT/OT as tolerated, repeat orthostatic vitals. Will decrease IVF to 75cc/hr due to crackles on exam. Repeat CXR. Continue Zosyn. Follow Cx. Replace K. Monitor AM labs and imaging. Continue strict I/Os and monitor UOP. Continue home medications, holding ACEI due to renal failure. Past Medical Family Social History Past Med/Fam/Surg Hx: No changes since H&P Allergies: Allergies No Known Drug Allergies Allergy (Verified 06/15/20 11:08) Review of Systems ROS: No change since H&P Vital Signs and I&O's Vital Signs: Temperature 97.6 F Pulse Rate [Left Brachial] 61 Respiratory Rate 18 Blood Pressure [Left Arm] 137/59 O2 Sat by Pulse Oximetry 97 Intake and Output: Intake & Output 10/02/20 10/03/20 10/04/20 10/05/20 23:59 23:59 23:59 23:59 Intake Total 480 / 480 2669 / 2669 899 / 899 Output Total 3765 / 3765 300 / 300 Balance 480 / 480 -1096 / -1096 599 / 599 Physical Exam Oriented: Normal Eyes: Normal Ear: Normal Nose: Normal Throat: Normal Respiratory: Right, Left and [place] Cardiovascular: Normal Auscultation: Bowel Sounds: Normal Tenderness: Normal Skin: Normal Musculoskeletal: Back:Lumbar and Back:Paraspinous Psychiatric: Normal Mood Description: Calm and Appropriate Affect: Normal Speech Pattern: Clear and Appropriate Laboratory and Diagnostics Result Diagrams: 10/05/20 04:20 10/05/20 04:20 Labs: Laboratory WBC 7.7 X10^3/uL (3.6-10.0) 10/05/20 04:20 RBC 3.27 X10^6/uL (3.5-5.4) L 10/05/20 04:20 Hgb 9.3 g/dL (12.0-16.0) L 10/05/20 04:20 Hct 27.2 % (36.0-47.0) L 10/05/20 04:20 MCV 83.4 fL (80.0-100.0) 10/05/20 04:20 MCH 28.5 pg (27.0-34.0) 10/05/20 04:20 MCHC 34.1 g/dL (33.0-35.0) 10/05/20 04:20 RDW 16.9 % (11.6-16.5) H 10/05/20 04:20 Plt Count 138 X10^3/uL (150.0-450.0) L 10/05/20 04:20 MPV 9.6 fL (7.4-11.0) 10/05/20 04:20 Neut % (Auto) 56.4 % (42.0-75.0) 10/05/20 04:20 Lymph % (Auto) 29.6 % (21.0-51.0) 10/05/20 04:20 [place] % (Auto) 10.6 % (0.0-13.0) 10/05/20 04:20 Eos % (Auto) 3.0 % (0.9-2.9) H 10/05/20 04:20 Baso % (Auto) 0.4 % (0.2-1.0) 10/05/20 04:20 Neut # (Auto) 4.4 x10^3/uL (2.2-4.8) 10/05/20 04:20 Lymph # (Auto) 2.3 X10^3/uL (1.3-2.9) 10/05/20 04:20 [place] # (Auto) 0.8 x10^3/uL (0.3-0.8) 10/05/20 04:20 Eos # (Auto) 0.2 x10^3/uL (0.0-0.2) 10/05/20 04:20 Baso # (Auto) 0.0 X10^3/uL (0.0-0.1) 10/05/20 04:20 Absolute Nucleated RBC 0.0 /100WBC 10/05/20 04:20 Sodium 139 mmol/L (136-145) 10/05/20 04:20 Corrected Sodium 140 mmol/L (136-145) 10/05/20 04:20 Potassium 3.3 mmol/L (3.5-5.1) L 10/05/20 04:20 Chloride 104 mmol/L (98-107) 10/05/20 04:20 Carbon Dioxide 28.3 mmol/L (21-32) 10/05/20 04:20 BUN 41 mg/dL (7-18) H 10/05/20 04:20 Creatinine 2.97 mg/dL (0.55-1.02) H 10/05/20 04:20 Est GFR (MDRD) Af Amer 20 (>60) L 10/05/20 04:20 Est GFR (MDRD) Non-Af 16 (>60) L 10/05/20 04:20 Glucose 135 mg/dL (65-99) H 10/05/20 04:20 POC Glucose (mg/dL) 189 mg/dL (65-99) H 10/05/20 11:13 Lactic Acid 1.9 mmol/L (0.4-2.0) 10/04/20 15:21 Calcium 8.9 mg/dL (8.5-10.1) 10/05/20 04:20 Corrected Calcium TNP 10/03/20 14:38 Magnesium 2.1 mg/dL (1.7-2.9) 10/04/20 04:40 Total Bilirubin 0.60 mg/dL (0.2-1.0) 10/03/20 14:38 AST 17 Units/L (15-37) 10/03/20 14:38 ALT 18 Units/L (12-78) 10/03/20 14:38 Alkaline Phosphatase 61 Units/L (46-116) 10/03/20 14:38 Creatine Kinase 39 Units/L (26-192) 10/03/20 14:38 CK-MB (CK-2) 1.1 ng/mL (0-4.0) 10/03/20 14:38 CK/CKMB % Calc 2.8 % (<4) 10/03/20 14:38 Troponin I 0.02 ng/mL (0-1.5) 10/03/20 14:38 B-Natriuretic Peptide 162 pg/mL (0-79) H 10/03/20 14:38 Total Protein 7.4 g/dL (6.4-8.2) 10/03/20 14:38 Albumin 3.4 g/dL (3.4-5.0) 10/03/20 14:38 Globulin 4.0 g/dL (2.5-4.5) 10/03/20 14:38 Albumin/Globulin Ratio 0.9 Ratio (1.1-2.1) L 10/03/20 14:38 Specimen Type Catherized urine 10/04/20 02:23 Urine Color Straw (YELLOW) 10/04/20 02:23 Urine Appearance Clear (CLEAR) 10/04/20 02:23 Urine pH 6.0 (5.0 - 8.0) 10/04/20 02:23 Ur Specific [place] 1.005 (1.000-1.030) 10/04/20 02:23 Urine Protein Negative (NEGATIVE) 10/04/20 02:23 Urine Glucose (UA) 2+ (NEGATIVE) 10/04/20 02:23 Urine Ketones Negative (NEGATIVE) 10/04/20 02:23 Urine Occult Blood Negative (NEGATIVE) 10/04/20 02:23 Urine Nitrite Negative (NEGATIVE) 10/04/20 02:23 Urine Bilirubin Negative (NEGATIVE) 10/04/20 02:23 Urine Urobilinogen Normal (NORMAL) 10/04/20 02:23 Ur Leukocyte Esterase Negative (NEGATIVE) 10/04/20 02:23 SARS CoV-2 RNA Rapid CRISTINA Negative (NEGATIVE) 10/03/20 14:28 Plan (1) Pseudomonas urinary tract infection: Status: Acute (2) Acute renal failure (ARF): Status: Acute Qualifiers: Acute renal failure type: unspecified Qualified Code(s): N17.9 - Acute kidney failure, unspecified (3) Generalized weakness: Status: Acute (4) Hypokalemia: Status: Acute (5) Anemia, normocytic normochromic: Status: Acute (6) DM type 2, uncontrolled, with neuropathy: Status: Chronic (7) DDD (degenerative disc disease), lumbar: Status: Chronic (8) CAD (coronary artery disease): Status: Acute Qualifiers: Associated angina: without angina Coronary Disease-Associated Artery/Lesion type: unspecified vessel or lesion type [place] vs. transplanted heart: [place] heart Qualified Code(s): I25.10 - Atherosclerotic heart disease of [place] coronary artery without angina pectoris
[2020-10-05 15:48] LABS: IRON 55 ug/dL (50-175)
[2020-10-05] MEDS: HumuLIN R SC PRN ×2 (17:07→20:43)
[2020-10-05] MEDS: LIPITOR TAB 80 MG PO SCH (20:43)
[2020-10-05] MEDS: SNACK - Diabetic Appropriate PO SCH (20:49)
[2020-10-06] MEDS: NS 1000 ML 1,000 ML IV SCH ×2 (01:22→13:37)
[2020-10-06 04:48] LABS: BASOPHILS % (AUTO) 0.6 % (0.2-1.0); EOSINOPHILS # (AUTO) 0.3 x10^3/uL (0.0-0.2); EOSINOPHILS % (AUTO) 3.4 % (0.9-2.9); HEMATOCRIT 28.6 % (36.0-47.0); HEMOGLOBIN 9.5 g/dL (12.0-16.0); LYMPHOCYTES # (AUTO) 2.2 X10^3/uL (1.3-2.9); LYMPHOCYTES % (AUTO) 29.4 % (21.0-51.0); MEAN CORPUSCULAR HGB CONC 33.1 g/dL (33.0-35.0); MEAN CORPUSCULAR VOLUME 84.7 fL (80.0-100.0); MEAN PLATELET VOLUME 9.6 fL (7.4-11.0); MONOCYTES # (AUTO) 0.8 x10^3/uL (0.3-0.8); MONOCYTES % (AUTO) 10.7 % (0.0-13.0); NEUTROPHILS # (AUTO) 4.2 x10^3/uL (2.2-4.8); NEUTROPHILS % (AUTO) 55.9 % (42.0-75.0); PLATELET COUNT 142 X10^3/uL (150.0-450.0); RED BLOOD COUNT 3.37 X10^6/uL (3.5-5.4); RED CELL DISTRIBUTION WIDTH 16.5 % (11.6-16.5); WHITE BLOOD COUNT 7.5 X10^3/uL (3.6-10.0)
[2020-10-06 04:56] LABS: CALCIUM 8.6 mg/dL (8.5-10.1); CARBON DIOXIDE 25.1 mmol/L (21-32); CREATININE 2.4 mg/dL (0.55-1.02)
[2020-10-06] MEDS: HumuLIN R SC PRN ×2 (05:37→12:41)
[2020-10-06] MEDS: HEPARIN SODIUM INJ 5000 UNITS SC SCH ×2 (08:33→20:43)
[2020-10-06] MEDS: BRILINTA PO SCH ×2 (08:34→20:45)
[2020-10-06] MEDS: COREG TAB 6.25 MG PO SCH ×2 (08:34→20:45)
[2020-10-06] MEDS: ZOSYN VIAL 3.375 GRAMS 3.375 G in NS 100 ML IV + SPIKE MINIBAG* 100 ML IV SCH ×2 (08:34→20:46)
[2020-10-06] MEDS: ASPIRIN EC 81 MG PO SCH (08:34)
[2020-10-06] MEDS: SYNTHROID 50 mcg TAB PO SCH (08:34)
[2020-10-06] MEDS: LANTUS SC SCH (08:35)
--- NOTE | 2020-10-06 09:25 | PCM.PROG ---
Progress Note Subjective Subjective: Patient seen at bedside. No acute events overnight. She states she feels better. She is not dizzy when she stands up. She did work with PT/OT yesterday. Her appetite has improved. Denies any fever or chills. No GI Labs: WBC 7.5 Plt 142 Hgb 9.5 Glucose 186 BUN/Cr: 36/2.40 K: 4.0 Carotid U/S: bilateral moderate plaque burden, no high grade stenosis Renal U/S: no stones or hydronephrosis, normal exam Cervical XR: chronic arthritis, no acute fracture CXR: clear with no infiltrates or effusions Blood Cx: negative Plan: Remove Garcia, continue PT/OT as tolerated. Renal function improving, continue gentle hydration. Continue Zosyn. Monitor AM labs. Continue strict I/Os and monitor UOP. Continue home medications, holding ACEI due to renal failure. Likely discharge in the AM with home health. Past Medical Family Social History Past Med/Fam/Surg Hx: No changes since H&P Allergies: Allergies No Known Drug Allergies Allergy (Verified 06/15/20 11:08) Review of Systems ROS: No change since H&P Vital Signs and I&O's Vital Signs: Temperature 97.6 F Pulse Rate [Left Brachial] 59 Respiratory Rate 18 Blood Pressure [Left Arm] 124/56 O2 Sat by Pulse Oximetry 98 Intake and Output: Intake & Output 10/03/20 10/04/20 10/05/20 10/06/20 23:59 23:59 23:59 23:59 Intake Total 480 / 480 2669 / 2669 2914 / 2914 554 / 554 Output Total 3765 / 3765 1770 / 1770 725 / 725 Balance 480 / 480 -1096 / -1096 1144 / 1144 -171 / -171 Physical Exam Oriented: Normal Eyes: Normal Ear: Normal Nose: Normal Throat: Normal Respiratory: Generalized and Diminished Cardiovascular: Normal and Edema (very slight ankle edema ) Auscultation: Bowel Sounds: Normal Tenderness: Normal Skin: Normal Musculoskeletal: Back:Lumbar and Back:Paraspinous Psychiatric: Normal Mood Description: Calm and Appropriate Affect: Normal Speech Pattern: Clear and Appropriate Laboratory and Diagnostics Result Diagrams: 10/06/20 04:00 10/06/20 04:00 Labs: 10/04/20 10:42 Blood Blood Culture - Preliminary 10/04/20 10:30 Blood Blood Culture - Preliminary Laboratory WBC 7.5 X10^3/uL (3.6-10.0) 10/06/20 04:00 RBC 3.37 X10^6/uL (3.5-5.4) L 10/06/20 04:00 Hgb 9.5 g/dL (12.0-16.0) L 10/06/20 04:00 Hct 28.6 % (36.0-47.0) L 10/06/20 04:00 MCV 84.7 fL (80.0-100.0) 10/06/20 04:00 MCH 28.0 pg (27.0-34.0) 10/06/20 04:00 MCHC 33.1 g/dL (33.0-35.0) 10/06/20 04:00 RDW 16.5 % (11.6-16.5) 10/06/20 04:00 Plt Count 142 X10^3/uL (150.0-450.0) L 10/06/20 04:00 MPV 9.6 fL (7.4-11.0) 10/06/20 04:00 Neut % (Auto) 55.9 % (42.0-75.0) 10/06/20 04:00 Lymph % (Auto) 29.4 % (21.0-51.0) 10/06/20 04:00 [place] % (Auto) 10.7 % (0.0-13.0) 10/06/20 04:00 Eos % (Auto) 3.4 % (0.9-2.9) H 10/06/20 04:00 Baso % (Auto) 0.6 % (0.2-1.0) 10/06/20 04:00 Neut # (Auto) 4.2 x10^3/uL (2.2-4.8) 10/06/20 04:00 Lymph # (Auto) 2.2 X10^3/uL (1.3-2.9) 10/06/20 04:00 [place] # (Auto) 0.8 x10^3/uL (0.3-0.8) 10/06/20 04:00 Eos # (Auto) 0.3 x10^3/uL (0.0-0.2) H 10/06/20 04:00 Baso # (Auto) 0.0 X10^3/uL (0.0-0.1) 10/06/20 04:00 Absolute Nucleated RBC 0.0 /100WBC 10/06/20 04:00 Sodium 141 mmol/L (136-145) 10/06/20 04:00 Corrected Sodium 143 mmol/L (136-145) 10/06/20 04:00 Potassium 4.0 mmol/L (3.5-5.1) 10/06/20 04:00 Chloride 106 mmol/L (98-107) 10/06/20 04:00 Carbon Dioxide 25.1 mmol/L (21-32) 10/06/20 04:00 BUN 36 mg/dL (7-18) H 10/06/20 04:00 Creatinine 2.40 mg/dL (0.55-1.02) H 10/06/20 04:00 Est GFR (MDRD) Af Amer 25 (>60) L 10/06/20 04:00 Est GFR (MDRD) Non-Af 21 (>60) L 10/06/20 04:00 Glucose 186 mg/dL (65-99) H 10/06/20 04:00 POC Glucose (mg/dL) 163 mg/dL (65-99) H 10/06/20 05:25 Lactic Acid 1.9 mmol/L (0.4-2.0) 10/04/20 15:21 Calcium 8.6 mg/dL (8.5-10.1) 10/06/20 04:00 Corrected Calcium TNP 10/03/20 14:38 Magnesium 2.1 mg/dL (1.7-2.9) 10/04/20 04:40 Iron 55 ug/dL (50-175) 10/05/20 14:00 Ferritin 177 ng/mL (8-252) 10/05/20 14:00 Total Bilirubin 0.60 mg/dL (0.2-1.0) 10/03/20 14:38 AST 17 Units/L (15-37) 10/03/20 14:38 ALT 18 Units/L (12-78) 10/03/20 14:38 Alkaline Phosphatase 61 Units/L (46-116) 10/03/20 14:38 Creatine Kinase 39 Units/L (26-192) 10/03/20 14:38 CK-MB (CK-2) 1.1 ng/mL (0-4.0) 10/03/20 14:38 CK/CKMB % Calc 2.8 % (<4) 10/03/20 14:38 Troponin I 0.02 ng/mL (0-1.5) 10/03/20 14:38 B-Natriuretic Peptide 162 pg/mL (0-79) H 10/03/20 14:38 Total Protein 7.4 g/dL (6.4-8.2) 10/03/20 14:38 Albumin 3.4 g/dL (3.4-5.0) 10/03/20 14:38 Globulin 4.0 g/dL (2.5-4.5) 10/03/20 14:38 Albumin/Globulin Ratio 0.9 Ratio (1.1-2.1) L 10/03/20 14:38 Vitamin B12 1647 pg/mL (193-986) H 10/05/20 14:00 Specimen Type Catherized urine 10/04/20 02:23 Urine Color Straw (YELLOW) 10/04/20 02:23 Urine Appearance Clear (CLEAR) 10/04/20 02:23 Urine pH 6.0 (5.0 - 8.0) 10/04/20 02:23 Ur Specific [place] 1.005 (1.000-1.030) 10/04/20 02:23 Urine Protein Negative (NEGATIVE) 10/04/20 02:23 Urine Glucose (UA) 2+ (NEGATIVE) 10/04/20 02:23 Urine Ketones Negative (NEGATIVE) 10/04/20 02:23 Urine Occult Blood Negative (NEGATIVE) 10/04/20 02:23 Urine Nitrite Negative (NEGATIVE) 10/04/20 02:23 Urine Bilirubin Negative (NEGATIVE) 10/04/20 02:23 Urine Urobilinogen Normal (NORMAL) 10/04/20 02:23 Ur Leukocyte Esterase Negative (NEGATIVE) 10/04/20 02:23 Stool Description Fob tube 10/05/20 14:40 Stl Occult Blood (IFOB) Negative (NEGATIVE) 10/05/20 14:40 SARS CoV-2 RNA Rapid CRISTINA Negative (NEGATIVE) 10/03/20 14:28 Plan (1) Pseudomonas urinary tract infection: Status: Acute (2) Acute renal failure (ARF): Status: Acute Qualifiers: Acute renal failure type: unspecified Qualified Code(s): N17.9 - Acute kidney failure, unspecified (3) Generalized weakness: Status: Acute (4) Hypokalemia: Status: Acute (5) Anemia, normocytic normochromic: Status: Acute (6) DM type 2, uncontrolled, with neuropathy: Status: Chronic (7) DDD (degenerative disc disease), lumbar: Status: Chronic (8) CAD (coronary artery disease): Status: Acute Qualifiers: Associated angina: without angina Coronary Disease-Associated Artery/Lesion type: unspecified vessel or lesion type [place] vs. transplanted heart: [place] heart Qualified Code(s): I25.10 - Atherosclerotic heart disease of [place] coronary artery without angina pectoris
[2020-10-06] MEDS: SNACK - Diabetic Appropriate PO SCH (20:00)
[2020-10-06] MEDS: LIPITOR TAB 80 MG PO SCH (20:45)
[2020-10-07] MEDS: NS 1000 ML 1,000 ML IV SCH (03:49)
[2020-10-07 05:55] LABS: BASOPHILS % (AUTO) 0.4 % (0.2-1.0); EOSINOPHILS # (AUTO) 0.2 x10^3/uL (0.0-0.2); HEMATOCRIT 26.5 % (36.0-47.0); HEMOGLOBIN 8.9 g/dL (12.0-16.0); LYMPHOCYTES # (AUTO) 2.2 X10^3/uL (1.3-2.9); LYMPHOCYTES % (AUTO) 27.3 % (21.0-51.0); MEAN CORPUSCULAR HEMOGLOBIN 28.4 pg (27.0-34.0); MEAN CORPUSCULAR HGB CONC 33.6 g/dL (33.0-35.0); MEAN CORPUSCULAR VOLUME 84.6 fL (80.0-100.0); MEAN PLATELET VOLUME 9.3 fL (7.4-11.0); MONOCYTES # (AUTO) 0.7 x10^3/uL (0.3-0.8); MONOCYTES % (AUTO) 8.9 % (0.0-13.0); NEUTROPHILS # (AUTO) 4.8 x10^3/uL (2.2-4.8); NEUTROPHILS % (AUTO) 60.4 % (42.0-75.0); PLATELET COUNT 132 X10^3/uL (150.0-450.0); RED BLOOD COUNT 3.13 X10^6/uL (3.5-5.4); RED CELL DISTRIBUTION WIDTH 16.6 % (11.6-16.5)
[2020-10-07 06:05] LABS: CALCIUM 8.6 mg/dL (8.5-10.1); CARBON DIOXIDE 23.5 mmol/L (21-32); CREATININE 1.97 mg/dL (0.55-1.02)
[2020-10-07 07:55] VITALS: BP 118/57
--- NOTE | 2020-10-07 09:11 | W.DIS.FURT ---
Summary of Discharge Discharge Summary of Date Date of Exam: 10/07/20 Admission Date Date of Admission: 10/03/20 Admission Diagnosis Hospital Course: Ms Lu is a 75y/o female with a PMH of multi-vessel CAD s/p PCI, HTN, HLD and Type 2 DM who was directly admitted for worsening weakness, dizzy spells and poor oral intake. Patient was being treated for Pseudomonas UTI outpatient with Levaquin but continued to get worse. She was seen in the ED on 09/28/20 and was treated for vertigo and discharged home. Patient had another spell at night when she was going to the bathroom and felt like her legs were giving out. Daughter reports patient is very weak, unable to ambulate without assistance. Also reports poor appetite. Family also states patient had some intermittent confusion over the past week. Denies fever or chills. No URI sx. No abdominal or flank pain. Patient's covid test was negative. CXR was also negative for any acute infection. Patient was started on hydration with normal saline and IV Zosyn for UTI. Patient did have acute on chronic renal failure on admission with elevated creatinine. Trop was negative. Due to patient's recurrent syncope, carotid U/S was done which showed moderate plaque burden with no high grade s tenosis bilaterally. Patient's orthostatic vitals were positive. Renal U/S was also done which was normal. Patient's labs were monitored daily and electrolytes replaced as needed. Her acei was held on admission due to poor renal function. Patient's renal function did improve with hydration. PT/OT was also consulted and recommended home health. Patient's dizziness resolved and she was ambulating in the room. Patient was stable for discharge. She will continue to hold acei and f/u with cardio as scheduled. F/U with PCP in 1 week. Vital Signs: Vital Signs (72 hours) 10/04/20 12:00 10/04/20 13:03 10/04/20 16:00 Temperature 97.1 F L 98.7 F Pulse Rate [Left Brachial] 65 65 76 Pulse Rate [Right Brachial] Respiratory Rate 18 19 Blood Pressure [Left Arm] 99/50 99/50 127/57 Blood Pressure [Right Arm] O2 Sat by Pulse Oximetry 98 96 10/04/20 20:00 10/04/20 20:40 10/04/20 21:40 Temperature 99.1 F Pulse Rate [Left Brachial] 71 Pulse Rate [Right Brachial] Respiratory Rate 18 20 20 Blood Pressure [Left Arm] 128/59 Blood Pressure [Right Arm] O2 Sat by Pulse Oximetry 97 10/05/20 00:00 10/05/20 04:00 10/05/20 08:00 Temperature 97.2 F L 97.8 F 98.2 F Pulse Rate [Left Brachial] 66 63 61 Pulse Rate [Right Brachial] Respiratory Rate 16 16 18 Blood Pressure [Left Arm] 119/56 117/58 116/59 Blood Pressure [Right Arm] O2 Sat by Pulse Oximetry 97 100 98 10/05/20 12:00 10/05/20 14:50 10/05/20 14:51 Temperature 97.6 F Pulse Rate [Left Brachial] 61 66 67 Pulse Rate [Right Brachial] Respiratory Rate 18 Blood Pressure [Left Arm] 137/59 111/51 79/39 Blood Pressure [Right Arm] O2 Sat by Pulse Oximetry 97 10/05/20 14:52 10/05/20 16:00 10/05/20 20:00 Temperature 97.6 F 98.3 F Pulse Rate [Left Brachial] 66 63 68 Pulse Rate [Right Brachial] Respiratory Rate 18 18 Blood Pressure [Left Arm] 125/53 131/60 126/56 Blood Pressure [Right Arm] O2 Sat by Pulse Oximetry 100 98 10/06/20 00:00 10/06/20 04:00 10/06/20 07:43 Temperature 98.2 F 97.9 F 97.6 F Pulse Rate [Left Brachial] 63 59 L 59 L Pulse Rate [Right Brachial] Respiratory Rate 16 16 18 Blood Pressure [Left Arm] 110/56 121/56 124/56 Blood Pressure [Right Arm] O2 Sat by Pulse Oximetry 98 98 98 10/06/20 12:00 10/06/20 14:00 10/06/20 14:21 Temperature 97.8 F Pulse Rate [Left Brachial] 66 Pulse Rate [Right Brachial] 69 73 Respiratory Rate 20 Blood Pressure [Left Arm] Blood Pressure [Right Arm] 126/55 138/62 115/57 O2 Sat by Pulse Oximetry 97 10/06/20 16:00 10/06/20 20:00 10/07/20 00:00 Temperature 98.0 F 98.4 F 98.1 F Pulse Rate [Left Brachial] Pulse Rate [Right Brachial] 66 80 82 Respiratory Rate 22 18 18 Blood Pressure [Left Arm] Blood Pressure [Right Arm] 133/62 122/64 136/63 O2 Sat by Pulse Oximetry 95 93 L 99 10/07/20 04:00 10/07/20 07:54 Temperature 97.8 F 97.9 F Pulse Rate [Left Brachial] Pulse Rate [Right Brachial] 75 59 L Respiratory Rate 16 18 Blood Pressure [Left Arm] Blood Pressure [Right Arm] 112/57 118/57 O2 Sat by Pulse Oximetry 100 99 Labs: Laboratory Last Values WBC 8.0 X10^3/uL (3.6-10.0) 10/07/20 05:23 RBC 3.13 X10^6/uL (3.5-5.4) L 10/07/20 05:23 Hgb 8.9 g/dL (12.0-16.0) L 10/07/20 05:23 Hct 26.5 % (36.0-47.0) L 10/07/20 05:23 MCV 84.6 fL (80.0-100.0) 10/07/20 05:23 MCH 28.4 pg (27.0-34.0) 10/07/20 05:23 MCHC 33.6 g/dL (33.0-35.0) 10/07/20 05:23 RDW 16.6 % (11.6-16.5) H 10/07/20 05:23 Plt Count 132 X10^3/uL (150.0-450.0) L 10/07/20 05:23 MPV 9.3 fL (7.4-11.0) 10/07/20 05:23 Neut % (Auto) 60.4 % (42.0-75.0) 10/07/20 05:23 Lymph % (Auto) 27.3 % (21.0-51.0) 10/07/20 05:23 [place] % (Auto) 8.9 % (0.0-13.0) 10/07/20 05:23 Eos % (Auto) 3.0 % (0.9-2.9) H 10/07/20 05:23 Baso % (Auto) 0.4 % (0.2-1.0) 10/07/20 05:23 Neut # (Auto) 4.8 x10^3/uL (2.2-4.8) 10/07/20 05:23 Lymph # (Auto) 2.2 X10^3/uL (1.3-2.9) 10/07/20 05:23 [place] # (Auto) 0.7 x10^3/uL (0.3-0.8) 10/07/20 05:23 Eos # (Auto) 0.2 x10^3/uL (0.0-0.2) 10/07/20 05:23 Baso # (Auto) 0.0 X10^3/uL (0.0-0.1) 10/07/20 05:23 Absolute Nucleated RBC 0.0 /100WBC 10/07/20 05:23 Sodium 141 mmol/L (136-145) 10/07/20 05:23 Corrected Sodium 143 mmol/L (136-145) 10/07/20 05:23 Potassium 4.1 mmol/L (3.5-5.1) 10/07/20 05:23 Chloride 108 mmol/L (98-107) H 10/07/20 05:23 Carbon Dioxide 23.5 mmol/L (21-32) 10/07/20 05:23 BUN 30 mg/dL (7-18) H 10/07/20 05:23 Creatinine 1.97 mg/dL (0.55-1.02) H 10/07/20 05:23 Est GFR (MDRD) Af Amer 32 (>60) L 10/07/20 05:23 Est GFR (MDRD) Non-Af 26 (>60) L 10/07/20 05:23 Glucose 190 mg/dL (65-99) H 10/07/20 05:23 POC Glucose (mg/dL) 173 mg/dL (65-99) H 10/07/20 05:51 Lactic Acid 1.9 mmol/L (0.4-2.0) 10/04/20 15:21 Calcium 8.6 mg/dL (8.5-10.1) 10/07/20 05:23 Corrected Calcium TNP 10/03/20 14:38 Magnesium 2.1 mg/dL (1.7-2.9) 10/04/20 04:40 Iron 55 ug/dL (50-175) 10/05/20 14:00 Ferritin 177 ng/mL (8-252) 10/05/20 14:00 Total Bilirubin 0.60 mg/dL (0.2-1.0) 10/03/20 14:38 AST 17 Units/L (15-37) 10/03/20 14:38 ALT 18 Units/L (12-78) 10/03/20 14:38 Alkaline Phosphatase 61 Units/L (46-116) 10/03/20 14:38 Creatine Kinase 39 Units/L (26-192) 10/03/20 14:38 CK-MB (CK-2) 1.1 ng/mL (0-4.0) 10/03/20 14:38 CK/CKMB % Calc 2.8 % (<4) 10/03/20 14:38 Troponin I 0.02 ng/mL (0-1.5) 10/03/20 14:38 B-Natriuretic Peptide 162 pg/mL (0-79) H 10/03/20 14:38 Total Protein 7.4 g/dL (6.4-8.2) 10/03/20 14:38 Albumin 3.4 g/dL (3.4-5.0) 10/03/20 14:38 Globulin 4.0 g/dL (2.5-4.5) 10/03/20 14:38 Albumin/Globulin Ratio 0.9 Ratio (1.1-2.1) L 10/03/20 14:38 Vitamin B12 1647 pg/mL (193-986) H 10/05/20 14:00 Specimen Type Catherized urine 10/04/20 02:23 Urine Color Straw (YELLOW) 10/04/20 02:23 Urine Appearance Clear (CLEAR) 10/04/20 02:23 Urine pH 6.0 (5.0 - 8.0) 10/04/20 02:23 Ur Specific [place] 1.005 (1.000-1.030) 10/04/20 02:23 Urine Protein Negative (NEGATIVE) 10/04/20 02:23 Urine Glucose (UA) 2+ (NEGATIVE) 10/04/20 02:23 Urine Ketones Negative (NEGATIVE) 10/04/20 02:23 Urine Occult Blood Negative (NEGATIVE) 10/04/20 02:23 Urine Nitrite Negative (NEGATIVE) 10/04/20 02:23 Urine Bilirubin Negative (NEGATIVE) 10/04/20 02:23 Urine Urobilinogen Normal (NORMAL) 10/04/20 02:23 Ur Leukocyte Esterase Negative (NEGATIVE) 10/04/20 02:23 Stool Description Fob tube 10/05/20 14:40 Stl Occult Blood (IFOB) Negative (NEGATIVE) 10/05/20 14:40 SARS CoV-2 RNA Rapid CRISTINA Negative (NEGATIVE) 10/03/20 14:28 Reason For Visit: DEHYDRATION,UTI Discharge Date Discharge Date: 10/07/20 Discharge Diagnosis All Active Problems (Updated 10/10/20 @ 11:38 by Leslee Shipman) Hypokalemia (Acute) CAD (coronary artery disease) (Chronic) Pseudomonas urinary tract infection (Acute) Vertigo (Acute) Anemia, normocytic normochromic (Chronic) UTI (urinary tract infection) (Acute) Acute renal failure (ARF) (Acute) Generalized weakness (Acute) Uncontrolled diabetes mellitus (Chronic) Hypothyroidism, adult (Chronic) Hypertension associated with type 2 diabetes mellitus (Chronic) Heart murmur, aortic (Chronic) DM type 2, uncontrolled, with neuropathy (Chronic) DDD (degenerative disc disease), lumbar (Chronic) CKD (chronic kidney disease), stage II (Chronic) Weakness (Acute) Plan of Treatment: Continue with present treatment and follow up plan. Pt is to keep follow up appointment as instructed and take medications as ordered. Discharge Medications Discharge Medications: No Known Drug Allergies Allergy (Verified 06/15/20 11:08) CONTINUE taking the following medications Brilinta 90 mg PO BID 10/03/20 [History] aspirin 81 mg PO DAILY 10/03/20 [History] atorvastatin 80 mg PO HS 10/03/20 [History] carvedilol 6.25 mg PO BID 10/03/20 [History] gabapentin 100 mg PO QID 10/03/20 [History] meclizine 12.5 mg PO TID PRN 10/03/20 [History] tizanidine 4 mg PO DAILY 10/03/20 [History] New Prescriptions aspirin 81 mg PO DAILY 30 Days #30 tab 10/07/20 [Rx] atorvastatin 80 mg PO HS 30 Days #30 tab 10/07/20 [Rx] ticagrelor [Brilinta] 90 mg PO BID 30 Days #60 tab 10/07/20 [Rx] Follow up and Referral Follow Up: 1 Week (Cardiology ) 1 Week (PCP ) Discharge Disposition Assessment: No acute distress noted at discharge. Discharge Disposition: Home with home health Discharge Condition: Stable Discharge Plan Discharge Plan Hospital Course: Ms Lu is a 75y/o female with a PMH of multi-vessel CAD s/p PCI, HTN, HLD and Type 2 DM who was directly admitted for worsening weakness, dizzy spells and poor oral intake. Patient was being treated for Pseudomonas UTI outpatient with Levaquin but continued to get worse. She was seen in the ED on 09/28/20 and was treated for vertigo and discharged home. Patient had another spell at night when she was going to the bathroom and felt like her legs were giving out. Daughter reports patient is very weak, unable to ambulate without assistance. Also reports poor appetite. Family also states patient had some intermittent confusion over the past week. Denies fever or chills. No URI sx. No abdominal or flank pain. Patient's covid test was negative. CXR was also negative for any acute infection. Patient was started on hydration with normal saline and IV Zosyn for UTI. Patient did have acute on chronic renal failure on admission with elevated creatinine. Trop was negative. Due to patient's recurrent syncope, carotid U/S was done which showed moderate plaque burden with no high grade stenosis bilaterally. Patient's orthostatic vitals were positive. Renal U/S was also done which was normal. Patient's labs were monitored daily and electrolytes replaced as needed. Her acei was held on admission due to poor renal function. Patient's renal function did improve with hydration. PT/OT was also consulted and recommended home health. Patient's dizziness resolved and she was ambulating in the room. Patient was stable for discharge. She will continue to hold acei and f/u with cardio as scheduled. F/U with PCP in 1 week. Patient Disposition: HOME HEALTH SERVICE Condition: Stable Health Concerns: Post Hospitalization: new medications and changes needed to prevent readmission or further decline. Pt educated and given instructions on all concerns. Care Plan Goals: Problem: Respiratory Complications Goal: Improved Uncomplicated Respiratory Status Instructions: Follow provided instructions. Follow up with primary physician as directed. Contact primary care physician or report to the closest Emergency Room if condition worsens. Plan of Treatment: Continue with present treatment and follow up plan. Pt is to keep follow up appointment as instructed and take medications as ordered. Assessment: No acute distress noted at discharge. Prescriptions: New atorvastatin 80 mg Tablet 80 mg PO HS 30 Days Qty: 30 RF: 0 aspirin 81 mg Tablet,Delayed Release (Dr/Ec) 81 mg PO DAILY 30 Days Qty: 30 RF: 0 Brilinta 90 mg Tablet 90 mg PO BID 30 Days Qty: 60 RF: 0 Continued levothyroxine 50 mcg tablet 50 mcg PO DAILY RF: 0 Lantus Solostar U-100 Insulin 100 unit/mL (3 mL) insulin pen 28 unit SUBCUT HS RF: 0 atorvastatin 80 mg tablet 80 mg PO HS RF: 0 Brilinta 90 mg tablet 90 mg PO BID RF: 0 carvedilol 6.25 mg tablet 6.25 mg PO BID RF: 0 tizanidine 4 mg tablet 4 mg PO DAILY RF: 0 meclizine 12.5 mg tablet 12.5 mg PO TID PRNRF: 0 gabapentin 100 mg capsule 100 mg PO QID RF: 0 aspirin 81 mg Tablet,Delayed Release (Dr/Ec) 81 mg PO DAILY RF: 0 hydrocodone-acetaminophen 7.5-325 mg tablet 1 tab PO BID PRN (Reason: Pain) RF: 0 insulin lispro [Humalog KwikPen Insulin] 100 unit/mL insulin pen See Rx Instructions .ROUTE .COMPLEX RF: 0 Discontinued losartan-hydrochlorothiazide 100-25 mg tablet 1 tab PO DAILY RF: 0 levofloxacin 500 mg tablet 500 mg PO DAILY RF: 0 meclizine 12.5 mg tablet 12.5 mg PO TID PRNQty: 30 RF: 0 Follow ups/Referrals Follow ups/Referrals: Leslee Shipman [Primary Care Provider] - 10/14/20 10:30 am (In office follow up with Dr. Shipman.) Instructions Instructions: Hand Washing, [id number], Antibiotic Medicine, Adult, Easy-to- Read, Type 2 Diabetes Mellitus, Self Care, Adult, [id number], Acute Kidney Injury, Adult, Vertigo, Urinary Tract Infection, Adult, [id number], Hypertension, [id number], Form - Blood Pressure Record Sheet, Dizziness, [id number], You've Been Prescribed an Antibiotic in the Hospital for an Infection - CDC (10/2017), Rehydration, Elderly, Dehydration, Elderly, Mzqa-[id number] Activity Restrictions/Additional Instructions: Follow up with applied exercise physiologist in one week. Do not take losartan- hydrochlorothiazide medicine until seen by applied exercise physiologist and adjust blood pressure medicines. Check blood pressure daily and keep a log Stand Alone Forms: Excuse From Work or School, Precautions for COVID19, Patient Portal, Social Distancing
[2020-10-07] MEDS: ASPIRIN EC 81 MG PO SCH (09:25)
[2020-10-07] MEDS: ZOSYN VIAL 3.375 GRAMS 3.375 G in NS 100 ML IV + SPIKE MINIBAG* 100 ML IV SCH (09:25)
[2020-10-07] MEDS: SYNTHROID 50 mcg TAB PO SCH (09:26)
[2020-10-07] MEDS: COREG TAB 6.25 MG PO SCH (09:26)
[2020-10-07] MEDS: LANTUS SC SCH (09:27)
[2020-10-07] MEDS: HEPARIN SODIUM INJ 5000 UNITS SC SCH (09:28)
[2020-10-07] MEDS: BRILINTA PO SCH (09:44)
== END 2020-10-07 11:13 | disposition home health service (06) ==
LOC: MED/SURG
PROVIDERS: ADMIT Internal Medicine; ATTEND Internal Medicine
DX: R06.02 Shortness of breath; R26.89 Other abnormalities of gait and mobility; E11.65 Type 2 diabetes mellitus with hyperglycemia; D64.89 Other specified anemias; I25.10 Atherosclerotic heart disease of native coronary artery without angina pectoris; R55 Syncope and collapse; R53.1 Weakness; Z20.822 Contact with and (suspected) exposure to COVID-19; N39.0 Urinary tract infection, site not specified; N18.9 Chronic kidney disease, unspecified; M54.2 Cervicalgia; E11.40 Type 2 diabetes mellitus with diabetic neuropathy, unspecified; M51.36 Other intervertebral disc degeneration, lumbar region; R42 Dizziness and giddiness; N17.8 Other acute kidney failure; E87.6 Hypokalemia; I12.9 Hypertensive chronic kidney disease with stage 1 through stage 4 chronic kidney disease, or unspecified chronic kidney disease; B96.5 Pseudomonas (aeruginosa) (mallei) (pseudomallei) as the cause of diseases classified elsewhere

== ENCOUNTER 2021-04-16 12:09 | Inpatient (IN) ==
[2021-04-16 12:22] VITALS: BMI 26.6
--- NOTE | 2021-04-16 12:37 | DR.DIZZY ---
HPI Time seen Time Seen by Provider: 04/16/21 12:30 PCP Primary Care Physician: PERNELL BUTT Complaint Chief Complaint Doctor Comments: 76 y/o female brought in via EMS for evaluation. Having increased weakness over the past few weeks. Had two syncopal episodes this am. No injuries from syncopal events. Both were brief. Denies any chest pain, dyspnea, fever or chills. Pt was evaluated here 1 month ago for fatigue, weakness. Had an elevated alk phos then, 1353. Oupatient labs done two days ago, shows it to be a bit higher at 1507. Denies localized pain. Chief Complaint:: EMS OUT TO PT WITH AMS, UPON ARRIVAL PT STATES SHE IS WEAK AND HAVING SOME SYNCOPE ( UPON ARRIVAL TO PT HOME PTS GLUCOSE 199 PER FAMILY ) UPON ENTERING ER PT IS ALERT AND SHE STATES " THEY TOLD ME I PASSED OUT ) PT DENIES ANY PAIN OR DISTRESS ,BR Self Treatment fo Chief Complaint: UPON ARRIVAL TO PTS HOME PTS B/P 127/32 COVID-19 Coronavirus risk:travel/contact w/high risk person: No Has patient experienced Coronavirus symptoms: No Source History Provided: Patient and EMS Mode of Arrival Mode of Arrival: Stretcher Timing Onset of Chief Complaint: 04/16/21 Context Stroke Symptoms: None PMH PMH Past Medical History: Yes Past Medical History: Arthritis, Coronary Artery Disease, Diabetes, Dyslipidemia, Hypertension and UT Past Surgical History: Yes Surgical History: Angioplasty/Stents and Hysterectomy Family History History of Family Medical Conditions: Yes Family Medical History: Diabetes Mellitus, UT and Hypertension Social History Does patient currently use any type of tobacco product: No Have you used tobacco products in the last 12 months: No Type of Tobacco Use: None Does any household member use tobacco: No Alcohol Use: None Do you use any recreational Drugs:: No Lives With: Family Lives Where: GRANDSON LIVES WITH HER Travel Risk Coronavirus risk:travel/contact w/high risk person: No Has patient experienced Coronavirus symptoms: No Infectious screening In the last 2 months have you had wt loss of >10#?: NO Have you had fever, night sweats or hemotysis?: No Have you traveled outside the country in the last 6 months?: No Isolation: Standard ROS Review of Systems Constitutional: Weakness and Fatigue Eyes: No Symptoms Reported ENTM: No Symptoms Reported Respiratoy: No Symptoms Reported Cardiovascular: Syncope Gastrointestinal/Abdominal: No Symptoms Reported Genitourinary: No Symptoms Reported Neurological: No Symptoms Reported Musculoskeletal: No Symptoms Reported Integumentary: No Symptoms Reported Hematologic/Lymphatic: No Symptoms Reported Endocrine: No Symptoms Reported Psychiatric: No Symptoms Reported All Other Systems: Reviewed and Negative PE Vital Signs Vitals: Temperature 98.2 F Pulse Rate 71 Respiratory Rate 12 Blood Pressure [Left Arm] 190/79 Blood Pressure 185/74 O2 Sat by Pulse Oximetry 100 General Limitations: No Limitations General Appearance: Alert and In No Apparent Distress Head Head Exam: Normal Inspection Eyes Eye exam: Normal Appearance ENT ENT Exam: Normal Exam Neck Neck Exam: Normal Inspection Chest Chest Inspection: Normal Inspection Respiratory Respiratory Exam: Normal Lung Sounds Bilat; negative Accessory Muscle Use and Respiratory Distress Cardiovascular Cardiovascular Exam: Regular Rate, Normal Rhythm and Normal Heart Sounds Abdominal Exam Abdominal Exam: Normal Inspection and Normal Bowel Sounds; negative Soft and Tenderness Extremeties Extremities Exam: Normal Inspection and Full ROM Back Back Exam: Normal Inspection Neurologic Neurological Exam: Alert, Oriented X3, CN II-XII Intact and Other (+ difficulty lifting LLE, keeping it off the bed.) MDM Differential Diagnosis Differential Diagnosis Comment: syncope, arrhythmia, electrolyte abnormalites COURSE Treatment Treatment: 76 y/o female brought in via EMS for evaluation. Passed out x 2 today. Currently feeling ok. Pt seen here last month for evaluation of elevated alk phosphatase. Has followed up with her MD, no diagnosis yet. Due to see cardiology this week for ECHO and stress test. PE is benign, vital signs stable. W/u performed. Still with elevated alk phos, 1,485. Also has elevated CK of 1,967. Has h/o anemia, worsened with a Hgb 8.6. Sodium low at 131, calcium elevated at 10.7. Recommend admissionn for further monitoring in view of syncope x 2, plus hydration to treat elevated CK. 1531- discussed with her covering attending, Dr. Shukla, will admit for the syncope and possible rhabdomyolysis. ROR Labs Reviewed Laboratory Results Reviewed?: Yes Result Diagrams: 04/16/21 12:48 04/16/21 12:48 Laboratory: WBC 12.6 X10^3/uL (3.6-10.0) H 04/16/21 12:48 RBC 3.32 X10^6/uL (3.5-5.4) L 04/16/21 12:48 Hgb 8.6 g/dL (12.0-16.0) L 04/16/21 12:48 Hct 26.0 % (36.0-47.0) L 04/16/21 12:48 MCV 78.4 fL (80.0-100.0) L 04/16/21 12:48 MCH 25.8 pg (27.0-34.0) L 04/16/21 12:48 MCHC 32.9 g/dL (33.0-35.0) L 04/16/21 12:48 RDW 18.4 % (11.6-16.5) H 04/16/21 12:48 Plt Count 226 X10^3/uL (150.0-450.0) 04/16/21 12:48 MPV 8.8 fL (7.4-11.0) 04/16/21 12:48 Neut % (Auto) 74.6 % (42.0-75.0) 04/16/21 12:48 Lymph % (Auto) 13.2 % (21.0-51.0) L 04/16/21 12:48 [place] % (Auto) 10.1 % (0.0-13.0) 04/16/21 12:48 Eos % (Auto) 0.9 % (0.9-2.9) 04/16/21 12:48 Baso % (Auto) 1.2 % (0.2-1.0) H 04/16/21 12:48 Neut # (Auto) 9.4 x10^3/uL (2.2-4.8) H 04/16/21 12:48 Lymph # (Auto) 1.7 X10^3/uL (1.3-2.9) 04/16/21 12:48 [place] # (Auto) 1.3 x10^3/uL (0.3-0.8) H 04/16/21 12:48 Eos # (Auto) 0.1 x10^3/uL (0.0-0.2) 04/16/21 12:48 Baso # (Auto) 0.2 X10^3/uL (0.0-0.1) H 04/16/21 12:48 Absolute Nucleated RBC 0.0 /100WBC 04/16/21 12:48 Sodium 131 mmol/L (136-145) L 04/16/21 12:48 Corrected Sodium 134 mmol/L (136-145) L 04/16/21 12:48 Potassium 4.5 mmol/L (3.5-5.1) 04/16/21 12:48 Chloride 100 mmol/L (98-107) 04/16/21 12:48 Carbon Dioxide 22.7 mmol/L (21-32) 04/16/21 12:48 BUN 23 mg/dL (7-18) H 04/16/21 12:48 Creatinine 2.07 mg/dL (0.55-1.02) H 04/16/21 12:48 Est GFR (MDRD) Af Amer 30 (>60) L 04/16/21 12:48 Est GFR (MDRD) Non-Af 25 (>60) L 04/16/21 12:48 Glucose 225 mg/dL (65-99) H 04/16/21 12:48 Calcium 9.0 mg/dL (8.5-10.1) 04/16/21 12:48 Corrected Calcium 10.7 mg/dL (8.5-10.1) H 04/16/21 12:48 Total Bilirubin 2.20 mg/dL (0.2-1.0) H 04/16/21 12:48 AST 194 Units/L (15-37) H 04/16/21 12:48 ALT 75 Units/L (12-78) 04/16/21 12:48 Alkaline Phosphatase 1485 Units/L (46-116) H 04/16/21 12:48 Creatine Kinase 1967 Units/L (26-192) H 04/16/21 12:48 CK-MB (CK-2) 12.3 ng/mL (0-4.0) H* 04/16/21 12:48 CK/CKMB % Calc 0.6 % (<4) 04/16/21 12:48 Troponin I 0.12 ng/mL (0-1.5) 04/16/21 12:48 Total Protein 7.0 g/dL (6.4-8.2) 04/16/21 12:48 Albumin 1.9 g/dL (3.4-5.0) L 04/16/21 12:48 Globulin 5.1 g/dL (2.5-4.5) H 04/16/21 12:48 Albumin/Globulin Ratio 0.4 Ratio (1.1-2.1) L 04/16/21 12:48 Lipase 152 Units/L (73-393) 04/16/21 12:48 Specimen Type Random urine 04/16/21 14:12 Urine Color Yellow (YELLOW) 04/16/21 14:12 Urine Appearance Cloudy (CLEAR) 04/16/21 14:12 Urine pH 6.0 (5.0 - 8.0) 04/16/21 14:12 Ur Specific [place] 1.015 (1.000-1.030) 04/16/21 14:12 Urine Protein 3+ (NEGATIVE) 04/16/21 14:12 Urine Glucose (UA) Negative (NEGATIVE) 04/16/21 14:12 Urine Ketones Negative (NEGATIVE) 04/16/21 14:12 Urine Occult Blood 5+ (NEGATIVE) 04/16/21 14:12 Urine Nitrite Negative (NEGATIVE) 04/16/21 14:12 Urine Bilirubin Negative (NEGATIVE) 04/16/21 14:12 Urine Urobilinogen Normal (NORMAL) 04/16/21 14:12 Ur Leukocyte Esterase 1+ (NEGATIVE) 04/16/21 14:12 Urine RBC 3-5 /HPF (0-3) A 04/16/21 14:12 Urine WBC 0-2 /HPF (0-5) 04/16/21 14:12 Ur Squamous Epith Cells Many /HPF (NEGATIVE) 04/16/21 14:12 Ur Transition Epith Cell Moderate /HPF (NEGATIVE) 04/16/21 14:12 Amorphous Sediment 1+ /HPF (NEGATIVE) 04/16/21 14:12 Urine Bacteria 1+ /HPF (NEGATIVE) 04/16/21 14:12 Hyaline Casts Rare /LPF (NEGATIVE) 04/16/21 14:12 Granular Casts Moderate /LPF (NEGATIVE) 04/16/21 14:12 Urine Mucus Few /HPF (NEGATIVE) 04/16/21 14:12 Ur Culture Indicated? No/not indicated 04/16/21 14:12 XRAY XRAY Interpreted by: Both X-ray Results: CXR - no acute abnormalities EKG Rate: 65 [place]: Normal Rhythm: NSR Block: None Hypertrophy: None ST: Infarct (old anterior) Opioid Opioid Risk Tool Age (Mitchel box if 16-45): No History of Preadolescent Sexual Abuse: No Total: 0 Total Score Risk Category: Low Risk Copyright: Aguero LR predicting aberrant behaviors Diagnosis Discharge Problem: Syncope Qualifiers: Syncope type: unspecified Qualified Code(s): R55 - Syncope and collapse Rhabdomyolysis Qualifiers: Encounter type: initial encounter
[2021-04-16 12:57] LABS: BASOPHILS # (AUTO) 0.2 X10^3/uL (0.0-0.1); BASOPHILS % (AUTO) 1.2 % (0.2-1.0); EOSINOPHILS # (AUTO) 0.1 x10^3/uL (0.0-0.2); EOSINOPHILS % (AUTO) 0.9 % (0.9-2.9); HEMOGLOBIN 8.6 g/dL (12.0-16.0); LYMPHOCYTES # (AUTO) 1.7 X10^3/uL (1.3-2.9); LYMPHOCYTES % (AUTO) 13.2 % (21.0-51.0); MEAN CORPUSCULAR HEMOGLOBIN 25.8 pg (27.0-34.0); MEAN CORPUSCULAR HGB CONC 32.9 g/dL (33.0-35.0); MEAN CORPUSCULAR VOLUME 78.4 fL (80.0-100.0); MEAN PLATELET VOLUME 8.8 fL (7.4-11.0); MONOCYTES # (AUTO) 1.3 x10^3/uL (0.3-0.8); MONOCYTES % (AUTO) 10.1 % (0.0-13.0); NEUTROPHILS # (AUTO) 9.4 x10^3/uL (2.2-4.8); NEUTROPHILS % (AUTO) 74.6 % (42.0-75.0); PLATELET COUNT 226 X10^3/uL (150.0-450.0); RED BLOOD COUNT 3.32 X10^6/uL (3.5-5.4); RED CELL DISTRIBUTION WIDTH 18.4 % (11.6-16.5); WHITE BLOOD COUNT 12.6 X10^3/uL (3.6-10.0)
--- NOTE | 2021-04-16 13:12 | RAD ---
HISTORYSyncopeSTUDYSingle-view [id number] trachea is midline. The cardiac silhouette is accentuated by portable technique. The lungs are clear without focal infiltrate or effusion. The bony thorax is unremarkable.IMPRESSIONNo acute cardiopulmonary disease.Electronically signed by: OLIVER GARCIA (Apr 16, 2021 13:10:41)
[2021-04-16 13:36] LABS: ALBUMIN 1.9 g/dL (3.4-5.0); CARBON DIOXIDE 22.7 mmol/L (21-32); COR CA(FOR HYPOALB) 10.7 mg/dL (8.5-10.1); CREATININE 2.07 mg/dL (0.55-1.02); TROPONIN I 0.12 ng/mL (0-1.5)
[2021-04-16 13:39] LABS: CKMB % 0.6 % (<4)
[2021-04-16 13:40] LABS: CREATINE KINASE MB 12.3 ng/mL (0-4.0)
[2021-04-16 14:34] LABS: BILIRUBIN,URINE NEGATIVE (NEGATIVE); BLOOD/HEMOGLOBIN,URINE 5+ (NEGATIVE); GLUCOSE, URINE NEGATIVE (NEGATIVE); KETONES,URINE NEGATIVE (NEGATIVE); LEUKOCYTE ESTERASE ,URINE 1+ (NEGATIVE); NITRITES,URINE NEGATIVE (NEGATIVE); PROTEIN,URINE 3+ (NEGATIVE); UROBILINOGEN,URINE NORMAL (NORMAL)
[2021-04-16 14:35] LABS: APPEARANCE,URINE CLOUDY (CLEAR); COLOR,URINE YELLOW (YELLOW)
[2021-04-16 14:47] LABS: AMORPHOUS SEDIMENT,UR 1+ /HPF (NEGATIVE); BACTERIA,URINE 1+ /HPF (NEGATIVE); GRANULAR CASTS,URINE MODERATE /LPF (NEGATIVE); HYALINE CASTS, URINE RARE /LPF (NEGATIVE); SQUAMOUS EPITHELIAL CELL,UR MANY /HPF (NEGATIVE); TRANSITIONAL EPI CELLS,URINE MODERATE /HPF (NEGATIVE)
[2021-04-16 14:48] LABS: MUCUS,URINE FEW /HPF (NEGATIVE)
[2021-04-16] MEDS: NS 1000 ML 1,000 ML IV SCH (18:24)
[2021-04-16] MEDS: LANTUS SC SCH (20:30)
[2021-04-16] MEDS: COREG TAB 6.25 MG PO SCH (21:15)
[2021-04-16] MEDS: HumuLIN R SC PRN (21:15)
[2021-04-17] MEDS: NS 1000 ML 1,000 ML IV SCH ×3 (02:43→17:37)
[2021-04-17 05:16] LABS: BASOPHILS # (AUTO) 0.1 X10^3/uL (0.0-0.1); BASOPHILS % (AUTO) 0.6 % (0.2-1.0); EOSINOPHILS # (AUTO) 0.1 x10^3/uL (0.0-0.2); EOSINOPHILS % (AUTO) 1.5 % (0.9-2.9); HEMATOCRIT 24.5 % (36.0-47.0); HEMOGLOBIN 8.4 g/dL (12.0-16.0); LYMPHOCYTES # (AUTO) 1.5 X10^3/uL (1.3-2.9); LYMPHOCYTES % (AUTO) 15.4 % (21.0-51.0); MEAN CORPUSCULAR HEMOGLOBIN 26.6 pg (27.0-34.0); MEAN CORPUSCULAR HGB CONC 34.2 g/dL (33.0-35.0); MEAN CORPUSCULAR VOLUME 77.7 fL (80.0-100.0); MEAN PLATELET VOLUME 9.1 fL (7.4-11.0); MONOCYTES # (AUTO) 1.2 x10^3/uL (0.3-0.8); MONOCYTES % (AUTO) 11.8 % (0.0-13.0); NEUTROPHILS % (AUTO) 70.7 % (42.0-75.0); PLATELET COUNT 214 X10^3/uL (150.0-450.0); RED BLOOD COUNT 3.15 X10^6/uL (3.5-5.4); RED CELL DISTRIBUTION WIDTH 18.6 % (11.6-16.5); WHITE BLOOD COUNT 9.9 X10^3/uL (3.6-10.0)
[2021-04-17 05:55] LABS: ALBUMIN 1.7 g/dL (3.4-5.0); CALCIUM 8.3 mg/dL (8.5-10.1); CARBON DIOXIDE 21.1 mmol/L (21-32); COR CA(FOR HYPOALB) 10.1 mg/dL (8.5-10.1); CREATININE 2.05 mg/dL (0.55-1.02); TOTAL PROTEIN 6.5 g/dL (6.4-8.2)
[2021-04-17] MEDS: SYNTHROID 50 mcg TAB PO SCH (06:02)
[2021-04-17] MEDS ORDERED: NORCO 7.5/325 MG TAB PO PRN (08:08)
[2021-04-17] MEDS ORDERED: LASIX PO SCH (09:00)
[2021-04-17 09:10] LABS: TROPONIN I 0.11 ng/mL (0-1.5)
[2021-04-17 09:21] LABS: CREATINE KINASE MB 12.7 ng/mL (0-4.0)
[2021-04-17 09:22] LABS: CKMB % 0.6 % (<4); CREATINE KINASE 2144 Units/L (26-192)
[2021-04-17 09:27] LABS: IRON 31 ug/dL (50-175)
[2021-04-17] MEDS: ASPIRIN EC 81 MG PO SCH (09:30)
[2021-04-17] MEDS: COREG TAB 6.25 MG PO SCH ×2 (09:30→21:05)
[2021-04-17] MEDS: HumuLIN R SC PRN ×3 (11:42→21:05)
--- NOTE | 2021-04-17 15:31 | DR.H&P ---
H&P History & Physical for Day of: H&P Date: 04/17/21 Chief Complaint Chief Complaint: weakness, dizziness, syncope Allergies Allergies Allergy/AdvReac Type Severity Reaction Status Date / Time No Known Drug Allergies Allergy Verified 04/16/21 12:22 History of Present Illness History of Present Illness: Ms Lu is a 76y/o female with a PMH Type 2 DM, CAD s/p PCI x 6 stents, HTN, HLD, GERD, Uterine cancer s/p hysterectomy and radiation in 2011, Chronic back pain presented with generalized weakness, dizziness and syncope. Patient went to the bathroom yesterday and passed out as per family. She then had another episode few mins later so EMS was called. She d enies feeling sick when she woke up. She reports normal appetite a day prior. She has been complaining of increased weakness for the past few weeks. She has been getting outpatient work-up. She is scheduled for echo and stress test on at [facility]. Patient denies fever or chills, no N/V/D or melena. ER work up - Labs: Hgb 8.4 Plt 214 WBC 9.9 BUN/Cr: 25/2.05 Total CK 1967 AST: 206 ALT 77 Alk phos:[id number] - Trop: 0.12 CKMB 12.3 EKG: no acute ST changes - UA(-) CXR: no acute process - COVID swab (-) Patient was started on gentle hydration. Plan: will repeat cardiac profile, anemia panel and FOBT. Consult Dr Corbett for anemia work up for possible EGD and colonoscopy. Will order echo to evaluate LV function. Continue telemetry. Resume home medications, hold Brilinta, lasix and statin. Decrease IVF to 75cc/hr. Continue insulin and SSI. Advised patient to ask for help when wants to get up. PT/OT as tolerated. Follow pending labs including tumor markers, will add Ca-125. Monitor AM labs and imaging. Time spent for clinical assessment, reviewing labs/imaging, physical exam, decision making and documentation greater than 45 mins. Past Medical History Past Medical History: Arthritis, Coronary Artery Disease, Diabetes, Dyslipidemia, Hypertension and NH Past Surgical History Surgical History: Angioplasty/Stents and Hysterectomy Additional Surgical History: PCI Family History Family Medical History: Diabetes Mellitus, NH and Hypertension Social History Does patient currently use any type of tobacco product: No Have you used tobacco products in the last 12 months: No Type of Tobacco Use: None Does any household member use tobacco: No Alcohol Use: None Drug Use: None Prescription drug monitoring program results: PDMP reviewed and no concerns identified Medications Home Medications: No Known Drug Allergies Allergy (Verified 04/16/21 12:22) CONTINUE taking the following medications ergocalciferol (vitamin D2) [Vitamin D2] 50,000 unit PO WEEKLY 04/16/21 [History] ferrous sulfate [Iron (ferrous sulfate)] 325 mg PO DAILY 04/16/21 [History] furosemide [Lasix] 40 mg PO DAILY 04/16/21 [History] garlic 1,200 mg PO DAILY 04/16/21 [History] losartan 100 mg PO DAILY 04/16/21 [History] melatonin 300 mcg PO HS 04/16/21 [History] potassium 99 mg PO DAILY 04/16/21 [History] vitamin Y18-luupe acid 1,000 tab PO DAILY 04/16/21 [History] Labs Result Diagrams: 04/17/21 04:10 04/17/21 04:10 Labs: Laboratory WBC 9.9 X10^3/uL (3.6-10.0) 04/17/21 04:10 RBC 3.15 X10^6/uL (3.5-5.4) L 04/17/21 04:10 Hgb 8.4 g/dL (12.0-16.0) L 04/17/21 04:10 Hct 24.5 % (36.0-47.0) L 04/17/21 04:10 MCV 77.7 fL (80.0-100.0) L 04/17/21 04:10 MCH 26.6 pg (27.0-34.0) L 04/17/21 04:10 MCHC 34.2 g/dL (33.0-35.0) 04/17/21 04:10 RDW 18.6 % (11.6-16.5) H 04/17/21 04:10 Plt Count 214 X10^3/uL (150.0-450.0) 04/17/21 04:10 MPV 9.1 fL (7.4-11.0) 04/17/21 04:10 Neut % (Auto) 70.7 % (42.0-75.0) 04/17/21 04:10 Lymph % (Auto) 15.4 % (21.0-51.0) L 04/17/21 04:10 [place] % (Auto) 11.8 % (0.0-13.0) 04/17/21 04:10 Eos % (Auto) 1.5 % (0.9-2.9) 04/17/21 04:10 Baso % (Auto) 0.6 % (0.2-1.0) 04/17/21 04:10 Neut # (Auto) 7.0 x10^3/uL (2.2-4.8) H 04/17/21 04:10 Lymph # (Auto) 1.5 X10^3/uL (1.3-2.9) 04/17/21 04:10 [place] # (Auto) 1.2 x10^3/uL (0.3-0.8) H 04/17/21 04:10 Eos # (Auto) 0.1 x10^3/uL (0.0-0.2) 04/17/21 04:10 Baso # (Auto) 0.1 X10^3/uL (0.0-0.1) 04/17/21 04:10 Absolute Nucleated RBC 0.1 /100WBC 04/17/21 04:10 Sodium 133 mmol/L (136-145) L 04/17/21 04:10 Corrected Sodium 134 mmol/L (136-145) L 04/17/21 04:10 Potassium 3.9 mmol/L (3.5-5.1) 04/17/21 04:10 Chloride 103 mmol/L (98-107) 04/17/21 04:10 Carbon Dioxide 21.1 mmol/L (21-32) 04/17/21 04:10 BUN 25 mg/dL (7-18) H 04/17/21 04:10 Creatinine 2.05 mg/dL (0.55-1.02) H 04/17/21 04:10 Est GFR (MDRD) Af Amer 30 (>60) L 04/17/21 04:10 Est GFR (MDRD) Non-Af 25 (>60) L 04/17/21 04:10 Glucose 146 mg/dL (65-99) H 04/17/21 04:10 POC Glucose (mg/dL) 230 mg/dL (65-99) H 04/17/21 11:40 Calcium 8.3 mg/dL (8.5-10.1) L 04/17/21 04:10 Corrected Calcium 10.1 mg/dL (8.5-10.1) 04/17/21 04:10 Iron 31 ug/dL (50-175) L 04/17/21 08:24 Transferrin 123 mg/dL (202-364) L 04/17/21 08:24 Ferritin 678 ng/mL (8-252) H 04/17/21 08:24 Total Bilirubin 1.80 mg/dL (0.2-1.0) H 04/17/21 04:10 AST 206 Units/L (15-37) H 04/17/21 04:10 ALT 77 Units/L (12-78) 04/17/21 04:10 Alkaline Phosphatase 1376 Units/L (46-116) H 04/17/21 04:10 Creatine Kinase 2144 Units/L (26-192) H 04/17/21 08:24 CK-MB (CK-2) 12.7 ng/mL (0-4.0) H* 04/17/21 08:24 CK/CKMB % Calc 0.6 % (<4) 04/17/21 08:24 Troponin I 0.11 ng/mL (0-1.5) 04/17/21 08:24 Total Protein 6.5 g/dL (6.4-8.2) 04/17/21 04:10 Albumin 1.7 g/dL (3.4-5.0) L 04/17/21 04:10 Globulin 4.8 g/dL (2.5-4.5) H 04/17/21 04:10 Albumin/Globulin Ratio 0.4 Ratio (1.1-2.1) L 04/17/21 04:10 Lipase 152 Units/L (73-393) 04/16/21 12:48 Vitamin B12 > 2000 pg/mL (193-986) H 04/17/21 08:24 Folate 12.8 ng/mL (>8.6) 04/17/21 08:24 Specimen Type Random urine 04/16/21 14:12 Urine Color Yellow (YELLOW) 04/16/21 14:12 Urine Appearance Cloudy (CLEAR) 04/16/21 14:12 Urine pH 6.0 (5.0 - 8.0) 04/16/21 14:12 Ur Specific [place] 1.015 (1.000-1.030) 04/16/21 14:12 Urine Protein 3+ (NEGATIVE) 04/16/21 14:12 Urine Glucose (UA) Negative (NEGATIVE) 04/16/21 14:12 Urine Ketones Negative (NEGATIVE) 04/16/21 14:12 Urine Occult Blood 5+ (NEGATIVE) 04/16/21 14:12 Urine Nitrite Negative (NEGATIVE) 04/16/21 14:12 Urine Bilirubin Negative (NEGATIVE) 04/16/21 14:12 Urine Urobilinogen Normal (NORMAL) 04/16/21 14:12 Ur Leukocyte Esterase 1+ (NEGATIVE) 04/16/21 14:12 Urine RBC 3-5 /HPF (0-3) A 04/16/21 14:12 Urine WBC 0-2 /HPF (0-5) 04/16/21 14:12 Ur Squamous Epith Cells Many /HPF (NEGATIVE) 04/16/21 14:12 Ur Transition Epith Cell Moderate /HPF (NEGATIVE) 04/16/21 14:12 Amorphous Sediment 1+ /HPF (NEGATIVE) 04/16/21 14:12 Urine Bacteria 1+ /HPF (NEGATIVE) 04/16/21 14:12 Hyaline Casts Rare /LPF (NEGATIVE) 04/16/21 14:12 Granular Casts Moderate /LPF (NEGATIVE) 04/16/21 14:12 Urine Mucus Few /HPF (NEGATIVE) 04/16/21 14:12 Ur Culture Indicated? No/not indicated 04/16/21 14:12 SARS-CoV-2 (PCR) Negative (NEGATIVE) 04/16/21 15:41 Influenza Type A (PCR) Negative (NEGATIVE) 04/16/21 15:41 Influenza Type B (PCR) Negative (NEGATIVE) 04/16/21 15:41 RSV (PCR) Negative (NEGATIVE) 04/16/21 15:41 Review of Systems Constitutional: Weakness and Malaise Eyes: No Symptoms Reported ENT: No Symptoms Reported Respiratory: No Symptoms Reported Cardiovascular: Edema and Light Headedness Gastrointestinal: No Symptoms Reported Genitourinary: No Symptoms Reported Musculoskeletal: Back Pain Skin: No Symptoms Reported Neurological: No Symptoms Reported Physical Exam Vital Signs: Temperature 98.0 F Pulse Rate [Right Brachial] 58 Pulse Rate 70 Respiratory Rate 20 Blood Pressure [Right Arm] 100/52 Blood Pressure [Left Arm] 190/79 Blood Pressure 185/74 O2 Sat by Pulse Oximetry 96 Oriented: Normal Eyes: Normal and Other (appears pale ) Ear: Normal Nose: Normal Throat: Normal Respiratory: Clear Throughout Cardiovascular: Normal and Edema Auscultation: Bowel Sounds: Normal Palpation: Normal Tenderness: Normal Skin: Normal Musculoskeletal: Back:Thoracic, Back:Lumbar and Back:Paraspinous Psychiatric: Normal Mood Description: Calm Affect: Normal Speech Pattern: Clear and Appropriate Assessment/Plan (1) Anemia, normocytic normochromic: Status: Chronic (2) Fatigue: Qualifiers: Fatigue type: unspecified Qualified Code(s): R53.83 - Other fatigue Status: Acute (3) Syncope: Qualifiers: Syncope type: unspecified Qualified Code(s): R55 - Syncope and collapse Status: Acute (4) Rhabdomyolysis: Qualifiers: Rhabdomyolysis type: non-traumatic Qualified Code(s): M62.82 - Rhabdomyolysis Status: Acute (5) Acute renal failure (ARF): Qualifiers: Acute renal failure type: unspecified Qualified Code(s): N17.9 - Acute kidney failure, unspecified Status: Acute (6) Generalized weakness: Status: Acute (7) Elevated alkaline phosphatase level: Status: Acute (8) Transaminitis: Status: Acute (9) CAD (coronary artery disease): Qualifiers: Associated angina: without angina Coronary Disease-Associated Artery/Lesion type: unspecified vessel or lesion type [place] vs. transplanted heart: [place] heart Qualified Code(s): I25.10 - Atherosclerotic heart disease of [place] coronary artery without angina pectoris Status: Chronic (10) Uterine cancer: Qualifiers: Malignant neoplasm of uterus location: unspecified site of uterus Qualified Code(s): C55 - Malignant neoplasm of uterus, part unspecified Status: Acute Review H&P Reviewed: Yes Patient was examined?: Yes
[2021-04-17] MEDS: LOVENOX INJ 30 MG SYR SC SCH (17:18)
[2021-04-17] MEDS ORDERED: LIPITOR TAB 80 MG PO SCH (21:00)
[2021-04-17] MEDS: LANTUS SC SCH (21:05)
[2021-04-18] MEDS: NS 1000 ML 1,000 ML IV SCH ×4 (00:20→17:54)
[2021-04-18] MEDS: SYNTHROID 50 mcg TAB PO SCH (05:34)
[2021-04-18 06:41] LABS: BASOPHILS # (AUTO) 0.1 X10^3/uL (0.0-0.1); BASOPHILS % (AUTO) 0.7 % (0.2-1.0); EOSINOPHILS # (AUTO) 0.2 x10^3/uL (0.0-0.2); EOSINOPHILS % (AUTO) 2.4 % (0.9-2.9); HEMATOCRIT 23.4 % (36.0-47.0); LYMPHOCYTES % (AUTO) 25.2 % (21.0-51.0); MEAN CORPUSCULAR HEMOGLOBIN 26.8 pg (27.0-34.0); MEAN CORPUSCULAR HGB CONC 34.3 g/dL (33.0-35.0); MEAN CORPUSCULAR VOLUME 78.2 fL (80.0-100.0); MEAN PLATELET VOLUME 8.8 fL (7.4-11.0); MONOCYTES # (AUTO) 1.1 x10^3/uL (0.3-0.8); MONOCYTES % (AUTO) 14.1 % (0.0-13.0); NEUTROPHILS # (AUTO) 4.6 x10^3/uL (2.2-4.8); NEUTROPHILS % (AUTO) 57.6 % (42.0-75.0); PLATELET COUNT 190 X10^3/uL (150.0-450.0); RED BLOOD COUNT 2.98 X10^6/uL (3.5-5.4); RED CELL DISTRIBUTION WIDTH 18.8 % (11.6-16.5); WHITE BLOOD COUNT 7.9 X10^3/uL (3.6-10.0)
[2021-04-18] MEDS ORDERED: D5 LR 1000 ML 1,000 ML IV ONE (07:22)
[2021-04-18] MEDS ORDERED: KETALAR ONE (07:22)
[2021-04-18] MEDS ORDERED: XYLOCAINE 2 % (PLAIN) ONE (07:22)
[2021-04-18 07:26] LABS: ALANINE AMINOTRANSFERASE 92 Units/L (12-78); ALBUMIN 1.7 g/dL (3.4-5.0); ASPARTATE AMINO TRANSFERASE 238 Units/L (15-37); BLOOD UREA NITROGEN 22 mg/dL (7-18); CALCIUM 8.6 mg/dL (8.5-10.1); CARBON DIOXIDE 19.1 mmol/L (21-32); CHLORIDE 104 mmol/L (98-107); COR CA(FOR HYPOALB) 10.4 mg/dL (8.5-10.1); CREATININE 2.07 mg/dL (0.55-1.02); MAGNESIUM 2.4 mg/dL (1.7-2.9); SODIUM 133 mmol/L (136-145); TOTAL PROTEIN 6.5 g/dL (6.4-8.2); TROPONIN I 0.07 ng/mL (0-1.5); eGFR NON BLACK RACES 25 (>60)
[2021-04-18] MEDS ORDERED: DIPRIVAN VIAL 20 ML ONE (07:34)
[2021-04-18 07:36] LABS: CREATINE KINASE MB 18.8 ng/mL (0-4.0)
[2021-04-18 07:37] LABS: ALKALINE PHOSPHATASE 1488 Units/L (46-116); CKMB % 0.9 % (<4); CREATINE KINASE 2179 Units/L (26-192)
--- NOTE | 2021-04-18 08:29 | PCM.PROG ---
Progress Note Progress Note for Day of Date of Exam: 04/18/21 Subjective Subjective: Patient seen at bedside, just came back from EGD so she is asleep. Daughter present in room states she was told there was no bleeding, gastritis was noted. She will remain on clears today and prep for colonoscopy scheduled for tomorrow. Labs: Hgb 8 BUN/Cr: 22/2.07 CO2 19 AST 238 ALT 92 Total CK: 2179 Alk Phos: 1488 Tumour markers pending Plan: follow EGD results, continue clears for today and start colonoscopy prep. Follow surgery recommendations. Monitor H/H, will repeat at 3 pm and if below 8 then transfuse. Continue gentle hydration. Follow pending labs. Monitor AM labs/imaging. Past Medical Family Social History Past Med/Fam/Surg Hx: No changes since H&P Allergies: Allergies No Known Drug Allergies Allergy (Verified 04/16/21 12:22) Review of Systems ROS: No change since H&P Vital Signs and I&O's Vital Signs: Temperature 97.2 F Pulse Rate [Right Brachial] 51 Pulse Rate 70 Respiratory Rate 20 Blood Pressure [Right Arm] 150/67 Blood Pressure [Left Arm] 190/79 Blood Pressure 185/74 O2 Sat by Pulse Oximetry 99 Intake and Output: Intake & Output 04/15/21 04/16/21 04/17/21 04/18/21 23:59 23:59 23:59 23:59 Intake Total 683 / 683 4420 / 4420 1120 / 1120 Balance 683 / 683 4420 / 4420 1120 / 1120 Physical Exam Oriented: Other (asleep, post EGD ) Respiratory: Normal Cardiovascular: Normal and Edema Auscultation: Bowel Sounds: Normal Tenderness: Normal Skin: Normal Musculoskeletal: Back:Thoracic, Back:Lumbar and Back:Paraspinous Psychiatric: Normal Mood Description: Calm Affect: Normal Laboratory and Diagnostics Result Diagrams: 04/18/21 05:55 04/18/21 05:55 Labs: Laboratory WBC 7.9 X10^3/uL (3.6-10.0) 04/18/21 05:55 RBC 2.98 X10^6/uL (3.5-5.4) L 04/18/21 05:55 Hgb 8.0 g/dL (12.0-16.0) L 04/18/21 05:55 Hct 23.4 % (36.0-47.0) L 04/18/21 05:55 MCV 78.2 fL (80.0-100.0) L 04/18/21 05:55 MCH 26.8 pg (27.0-34.0) L 04/18/21 05:55 MCHC 34.3 g/dL (33.0-35.0) 04/18/21 05:55 RDW 18.8 % (11.6-16.5) H 04/18/21 05:55 Plt Count 190 X10^3/uL (150.0-450.0) 04/18/21 05:55 MPV 8.8 fL (7.4-11.0) 04/18/21 05:55 Neut % (Auto) 57.6 % (42.0-75.0) 04/18/21 05:55 Lymph % (Auto) 25.2 % (21.0-51.0) 04/18/21 05:55 [place] % (Auto) 14.1 % (0.0-13.0) H 04/18/21 05:55 Eos % (Auto) 2.4 % (0.9-2.9) 04/18/21 05:55 Baso % (Auto) 0.7 % (0.2-1.0) 04/18/21 05:55 Neut # (Auto) 4.6 x10^3/uL (2.2-4.8) 04/18/21 05:55 Lymph # (Auto) 2.0 X10^3/uL (1.3-2.9) 04/18/21 05:55 [place] # (Auto) 1.1 x10^3/uL (0.3-0.8) H 04/18/21 05:55 Eos # (Auto) 0.2 x10^3/uL (0.0-0.2) 04/18/21 05:55 Baso # (Auto) 0.1 X10^3/uL (0.0-0.1) 04/18/21 05:55 Absolute Nucleated RBC 0.0 /100WBC 04/18/21 05:55 Sodium 133 mmol/L (136-145) L 04/18/21 05:55 Corrected Sodium TNP 04/18/21 05:55 Potassium 4.0 mmol/L (3.5-5.1) 04/18/21 05:55 Chloride 104 mmol/L (98-107) 04/18/21 05:55 Carbon Dioxide 19.1 mmol/L (21-32) L 04/18/21 05:55 BUN 22 mg/dL (7-18) H 04/18/21 05:55 Creatinine 2.07 mg/dL (0.55-1.02) H 04/18/21 05:55 Est GFR (MDRD) Af Amer 30 (>60) L 04/18/21 05:55 Est GFR (MDRD) Non-Af 25 (>60) L 04/18/21 05:55 Glucose 79 mg/dL (65-99) 04/18/21 05:55 POC Glucose (mg/dL) 76 mg/dL (65-99) 04/18/21 05:29 Calcium 8.6 mg/dL (8.5-10.1) 04/18/21 05:55 Corrected Calcium 10.4 mg/dL (8.5-10.1) H 04/18/21 05:55 Magnesium 2.4 mg/dL (1.7-2.9) 04/18/21 05:55 Iron 31 ug/dL (50-175) L 04/17/21 08:24 Transferrin 123 mg/dL (202-364) L 04/17/21 08:24 Ferritin 678 ng/mL (8-252) H 04/17/21 08:24 Total Bilirubin 1.70 mg/dL (0.2-1.0) H 04/18/21 05:55 AST 238 Units/L (15-37) H 04/18/21 05:55 ALT 92 Units/L (12-78) H 04/18/21 05:55 Alkaline Phosphatase 1488 Units/L (46-116) H 04/18/21 05:55 Creatine Kinase 2179 Units/L (26-192) H 04/18/21 05:55 CK-MB (CK-2) 18.8 ng/mL (0-4.0) H* 04/18/21 05:55 CK/CKMB % Calc 0.9 % (<4) 04/18/21 05:55 Troponin I 0.07 ng/mL (0-1.5) 04/18/21 05:55 Total Protein 6.5 g/dL (6.4-8.2) 04/18/21 05:55 Albumin 1.7 g/dL (3.4-5.0) L 04/18/21 05:55 Globulin 4.8 g/dL (2.5-4.5) H 04/18/21 05:55 Albumin/Globulin Ratio 0.4 Ratio (1.1-2.1) L 04/18/21 05:55 Lipase 152 Units/L (73-393) 04/16/21 12:48 Vitamin B12 > 2000 pg/mL (193-986) H 04/17/21 08:24 Folate 12.8 ng/mL (>8.6) 04/17/21 08:24 Specimen Type Random urine 04/16/21 14:12 Urine Color Yellow (YELLOW) 04/16/21 14:12 Urine Appearance Cloudy (CLEAR) 04/16/21 14:12 Urine pH 6.0 (5.0 - 8.0) 04/16/21 14:12 Ur Specific [place] 1.015 (1.000-1.030) 04/16/21 14:12 Urine Protein 3+ (NEGATIVE) 04/16/21 14:12 Urine Glucose (UA) Negative (NEGATIVE) 04/16/21 14:12 Urine Ketones Negative (NEGATIVE) 04/16/21 14:12 Urine Occult Blood 5+ (NEGATIVE) 04/16/21 14:12 Urine Nitrite Negative (NEGATIVE) 04/16/21 14:12 Urine Bilirubin Negative (NEGATIVE) 04/16/21 14:12 Urine Urobilinogen Normal (NORMAL) 04/16/21 14:12 Ur Leukocyte Esterase 1+ (NEGATIVE) 04/16/21 14:12 Urine RBC 3-5 /HPF (0-3) A 04/16/21 14:12 Urine WBC 0-2 /HPF (0-5) 04/16/21 14:12 Ur Squamous Epith Cells Many /HPF (NEGATIVE) 04/16/21 14:12 Ur Transition Epith Cell Moderate /HPF (NEGATIVE) 04/16/21 14:12 Amorphous Sediment 1+ /HPF (NEGATIVE) 04/16/21 14:12 Urine Bacteria 1+ /HPF (NEGATIVE) 04/16/21 14:12 Hyaline Casts Rare /LPF (NEGATIVE) 04/16/21 14:12 Granular Casts Moderate /LPF (NEGATIVE) 04/16/21 14:12 Urine Mucus Few /HPF (NEGATIVE) 04/16/21 14:12 Ur Culture Indicated? No/not indicated 04/16/21 14:12 SARS-CoV-2 (PCR) Negative (NEGATIVE) 04/16/21 15:41 Influenza Type A (PCR) Negative (NEGATIVE) 04/16/21 15:41 Influenza Type B (PCR) Negative (NEGATIVE) 04/16/21 15:41 RSV (PCR) Negative (NEGATIVE) 04/16/21 15:41 Plan (1) Anemia, normocytic normochromic: Status: Chronic (2) Fatigue: Status: Acute Qualifiers: Fatigue type: unspecified Qualified Code(s): R53.83 - Other fatigue (3) Syncope: Status: Acute Qualifiers: Syncope type: unspecified Qualified Code(s): R55 - Syncope and collapse (4) Rhabdomyolysis: Status: Acute Qualifiers: Rhabdomyolysis type: non-traumatic Qualified Code(s): M62.82 - Rhabdomyolysis (5) Acute renal failure (ARF): Status: Acute Qualifiers: Acute renal failure type: unspecified Qualified Code(s): N17.9 - Acute kidney failure, unspecified (6) Generalized weakness: Status: Acute (7) Elevated alkaline phosphatase level: Status: Acute (8) Transaminitis: Status: Acute (9) CAD (coronary artery disease): Status: Chronic Qualifiers: Associated angina: without angina Coronary Disease-Associated Artery/Lesion type: unspecified vessel or lesion type [place] vs. transplanted heart: [place] heart Qualified Code(s): I25.10 - Atherosclerotic heart disease of [place] coronary artery without angina pectoris (10) Uterine cancer: Status: Acute Qualifiers: Malignant neoplasm of uterus location: unspecified site of uterus Qualified Code(s): C55 - Malignant neoplasm of uterus, part unspecified
[2021-04-18] MEDS ORDERED: DULCOLAX TAB EC 5 MG PO ONE (09:00)
[2021-04-18] MEDS: LOVENOX INJ 30 MG SYR SC SCH (09:29)
[2021-04-18] MEDS: PROTONIX INJ 40 MG VIAL IVP SCH (09:30)
[2021-04-18] MEDS: ASPIRIN EC 81 MG PO SCH (09:30)
[2021-04-18] MEDS: GOLYTELY or GAVILYTE or Equivalent PO SCH (09:31)
--- NOTE | 2021-04-18 12:04 | VAS ---
HISTORYDIZZINESS. Concern for carotid artery stenosis. Carotid atherosclerosis.EXAM: BILATERAL DOPPLER CAROTID ULTRASOUND EXAMTechnique: Multiple kearney scale and color flow Doppler images of the right and left carotid arterial system were obtained. The vertebral arterial system was evaluated as well.Findings:Nonocclusive color flow Doppler is seen throughout the right and left carotid arterial system. No hemodynamically significant carotid arterial stenosis is seen based on velocity criteria. There is moderate to severe bilateral carotid atherosclerosis and hard atherosclerotic plaque formation of the bilateral carotid bulbs and ICAs with associated intimal thickening but [without] evidence for high-grade stenosis (>70%) or occlusion of the carotid arteries. The right and left vertebral artery demonstrate antegrade flow.IMPRESSION:Moderate to severe bilateral carotid atherosclerosis and hard atherosclerotic plaque formation of the bilateral carotid bulbs and [in both] ICAs with [id number] associated carotid intimal thickening but without evidence for high-grade stenosis or occlusion of the carotid arteries, based on Doppler velocity criteria.Appropriate, antegrade, vertebral arterial flow.Peak right ICA velocity: 114 centimeter/seconds.Peak right CCA velocity: 58 centimeter/seconds.Peak left ICA velocity: 65 centimeter/seconds.Peak left CCA velocity: 74 centimeter/seconds.Right ICA to CCA ratio: 2.2.Left ICA to CCA ratio: 1.9.Electronically signed by: LESVIA WARNER III (Apr 18, 2021 12:01:13)
[2021-04-18] MEDS ORDERED: ZOFRAN INJ 4 MG VIAL IVP PRN (14:43)
[2021-04-18] MEDS: COREG TAB 6.25 MG PO SCH ×2 (15:19→23:10)
[2021-04-18 15:41] LABS: HEMATOCRIT 24.5 % (36.0-47.0); HEMOGLOBIN 8.3 g/dL (12.0-16.0)
[2021-04-18] MEDS ORDERED: CITROMA PO ONE (16:03)
[2021-04-18] MEDS: LANTUS SC SCH (21:00)
[2021-04-19] MEDS: NS 1000 ML 1,000 ML IV SCH ×3 (00:55→16:35)
[2021-04-19] MEDS: SYNTHROID 50 mcg TAB PO SCH (05:49)
[2021-04-19 06:13] LABS: BASOPHILS # (AUTO) 0.1 X10^3/uL (0.0-0.1); BASOPHILS % (AUTO) 0.6 % (0.2-1.0); EOSINOPHILS # (AUTO) 0.2 x10^3/uL (0.0-0.2); EOSINOPHILS % (AUTO) 2.5 % (0.9-2.9); HEMATOCRIT 21.9 % (36.0-47.0); HEMOGLOBIN 7.6 g/dL (12.0-16.0); LYMPHOCYTES # (AUTO) 1.9 X10^3/uL (1.3-2.9); LYMPHOCYTES % (AUTO) 23.4 % (21.0-51.0); MEAN CORPUSCULAR HEMOGLOBIN 26.8 pg (27.0-34.0); MEAN CORPUSCULAR HGB CONC 34.5 g/dL (33.0-35.0); MEAN CORPUSCULAR VOLUME 77.8 fL (80.0-100.0); MEAN PLATELET VOLUME 8.7 fL (7.4-11.0); MONOCYTES % (AUTO) 11.8 % (0.0-13.0); NEUTROPHILS % (AUTO) 61.7 % (42.0-75.0); PLATELET COUNT 186 X10^3/uL (150.0-450.0); RED BLOOD COUNT 2.82 X10^6/uL (3.5-5.4); RED CELL DISTRIBUTION WIDTH 18.7 % (11.6-16.5); WHITE BLOOD COUNT 8.1 X10^3/uL (3.6-10.0)
[2021-04-19 06:34] LABS: ALANINE AMINOTRANSFERASE 92 Units/L (12-78); ALBUMIN 1.6 g/dL (3.4-5.0); ASPARTATE AMINO TRANSFERASE 221 Units/L (15-37); BLOOD UREA NITROGEN 20 mg/dL (7-18); CALCIUM 8.4 mg/dL (8.5-10.1); CARBON DIOXIDE 21.6 mmol/L (21-32); CHLORIDE 106 mmol/L (98-107); COR CA(FOR HYPOALB) 10.3 mg/dL (8.5-10.1); CREATININE 1.81 mg/dL (0.55-1.02); SODIUM 137 mmol/L (136-145); TOTAL PROTEIN 6.2 g/dL (6.4-8.2); eGFR NON BLACK RACES 29 (>60)
[2021-04-19 06:50] LABS: ALKALINE PHOSPHATASE 1293 Units/L (46-116)
[2021-04-19] MEDS ORDERED: DIPRIVAN VIAL 20 ML ONE (08:40)
[2021-04-19] MEDS ORDERED: ROBINUL ONE (09:21)
[2021-04-19] MEDS: ASPIRIN EC 81 MG PO SCH (10:12)
[2021-04-19] MEDS: PROTONIX INJ 40 MG VIAL IVP SCH (10:13)
[2021-04-19] MEDS: COREG TAB 6.25 MG PO SCH ×2 (10:13→20:44)
[2021-04-19] MEDS: GOLYTELY or GAVILYTE or Equivalent PO SCH (10:15)
[2021-04-19] MEDS: LOVENOX INJ 30 MG SYR SC SCH (10:20)
[2021-04-19 12:20] LABS: HEMATOCRIT 24.6 % (36.0-47.0); HEMOGLOBIN 8.3 g/dL (12.0-16.0)
--- NOTE | 2021-04-19 14:24 | PCM.PROG ---
Progress Note Progress Note for Day of Date of Exam: 04/19/21 Subjective Subjective: Patient seen at bedside, just came back from colonoscopy. She is doing well. She did have a dizzy spell last night as she was going through the colon prep. She felt better after laying down. Colonoscopy showed diverticulosis, no obvious mass. Her diet is advanced this morning. Her hgb did drop to 7.6, fobt + Labs: Hgb 7.6 BUN/Cr: 20/1.81 CO2 21 AST 221 ALT 92 Alk Phos: [id number] Corrected Ca: 10.3 Tumor marker: CEa 5.5 , CA19-9: 1940 Ca-125 pending Carotid U/S: moderate to severe atherosclerosis similar to September, no high grade stenosis seen Plan: follow surgery recommendations, advance diet. Follow pending results. Will order PTH. Repeat H/H, transfuse if < 8. Resume PO medications. Continue gentle hydration. Will order abdomen and pelvic ultrasound to evaluate further. Monitor AM labs/imaging. Past Medical Family Social History Past Med/Fam/Surg Hx: No changes since H&P Allergies: Allergies No Known Drug Allergies Allergy (Verified 04/16/21 12:22) Review of Systems ROS: No change since H&P Vital Signs and I&O's Vital Signs: Temperature 96.7 F Pulse Rate [Right Brachial] 55 Pulse Rate 70 Respiratory Rate 18 Blood Pressure [Right Arm] 168/67 Blood Pressure [Left Arm] 190/79 Blood Pressure 185/74 O2 Sat by Pulse Oximetry 98 Intake and Output: Intake & Output 04/16/21 04/17/21 04/18/21 04/19/21 23:59 23:59 23:59 23:59 Intake Total 683 / 683 4420 / 4420 3140 / 3140 390 / 390 Balance 683 / 683 4420 / 4420 3140 / 3140 390 / 390 Physical Exam Oriented: Other (asleep, post EGD ) Eyes: Normal and Other (appears pale ) Ear: Normal Nose: Normal Throat: Normal Respiratory: Normal Cardiovascular: Normal and Edema Auscultation: Bowel Sounds: Normal Tenderness: Normal Skin: Normal Musculoskeletal: Back:Thoracic, Back:Lumbar and Back:Paraspinous Psychiatric: Normal Mood Description: Calm Affect: Normal Speech Pattern: Clear and Appropriate Laboratory and Diagnostics Result Diagrams: 04/19/21 12:07 04/19/21 05:45 Labs: Laboratory WBC 8.1 X10^3/uL (3.6-10.0) 04/19/21 05:45 RBC 2.82 X10^6/uL (3.5-5.4) L 04/19/21 05:45 Hgb 8.3 g/dL (12.0-16.0) L 04/19/21 12:07 Hct 24.6 % (36.0-47.0) L 04/19/21 12:07 MCV 77.8 fL (80.0-100.0) L 04/19/21 05:45 MCH 26.8 pg (27.0-34.0) L 04/19/21 05:45 MCHC 34.5 g/dL (33.0-35.0) 04/19/21 05:45 RDW 18.7 % (11.6-16.5) H 04/19/21 05:45 Plt Count 186 X10^3/uL (150.0-450.0) 04/19/21 05:45 MPV 8.7 fL (7.4-11.0) 04/19/21 05:45 Neut % (Auto) 61.7 % (42.0-75.0) 04/19/21 05:45 Lymph % (Auto) 23.4 % (21.0-51.0) 04/19/21 05:45 [place] % (Auto) 11.8 % (0.0-13.0) 04/19/21 05:45 Eos % (Auto) 2.5 % (0.9-2.9) 04/19/21 05:45 Baso % (Auto) 0.6 % (0.2-1.0) 04/19/21 05:45 Neut # (Auto) 5.0 x10^3/uL (2.2-4.8) H 04/19/21 05:45 Lymph # (Auto) 1.9 X10^3/uL (1.3-2.9) 04/19/21 05:45 [place] # (Auto) 1.0 x10^3/uL (0.3-0.8) H 04/19/21 05:45 Eos # (Auto) 0.2 x10^3/uL (0.0-0.2) 04/19/21 05:45 Baso # (Auto) 0.1 X10^3/uL (0.0-0.1) 04/19/21 05:45 Absolute Nucleated RBC 0.1 /100WBC 04/19/21 05:45 Sodium 137 mmol/L (136-145) 04/19/21 05:45 Corrected Sodium TNP 04/19/21 05:45 Potassium 3.7 mmol/L (3.5-5.1) 04/19/21 05:45 Chloride 106 mmol/L (98-107) 04/19/21 05:45 Carbon Dioxide 21.6 mmol/L (21-32) 04/19/21 05:45 BUN 20 mg/dL (7-18) H 04/19/21 05:45 Creatinine 1.81 mg/dL (0.55-1.02) H 04/19/21 05:45 Est GFR (MDRD) Af Amer 35 (>60) L 04/19/21 05:45 Est GFR (MDRD) Non-Af 29 (>60) L 04/19/21 05:45 Glucose 66 mg/dL (65-99) 04/19/21 05:45 POC Glucose (mg/dL) 119 mg/dL (65-99) H 04/19/21 12:21 Calcium 8.4 mg/dL (8.5-10.1) L 04/19/21 05:45 Corrected Calcium 10.3 mg/dL (8.5-10.1) H 04/19/21 05:45 Magnesium 2.4 mg/dL (1.7-2.9) 04/18/21 05:55 Iron 31 ug/dL (50-175) L 04/17/21 08:24 Transferrin 123 mg/dL (202-364) L 04/17/21 08:24 Ferritin 678 ng/mL (8-252) H 04/17/21 08:24 Total Bilirubin 1.30 mg/dL (0.2-1.0) H 04/19/21 05:45 AST 221 Units/L (15-37) H 04/19/21 05:45 ALT 92 Units/L (12-78) H 04/19/21 05:45 Alkaline Phosphatase 1293 Units/L (46-116) H 04/19/21 05:45 Creatine Kinase 2179 Units/L (26-192) H 04/18/21 05:55 CK-MB (CK-2) 18.8 ng/mL (0-4.0) H* 04/18/21 05:55 CK/CKMB % Calc 0.9 % (<4) 04/18/21 05:55 Troponin I 0.07 ng/mL (0-1.5) 04/18/21 05:55 Total Protein 6.2 g/dL (6.4-8.2) L 04/19/21 05:45 Albumin 1.6 g/dL (3.4-5.0) L 04/19/21 05:45 Globulin 4.6 g/dL (2.5-4.5) H 04/19/21 05:45 Albumin/Globulin Ratio 0.3 Ratio (1.1-2.1) L 04/19/21 05:45 Lipase 152 Units/L (73-393) 04/16/21 12:48 Vitamin B12 > 2000 pg/mL (193-986) H 04/17/21 08:24 Folate 12.8 ng/mL (>8.6) 04/17/21 08:24 Specimen Type Random urine 04/16/21 14:12 Urine Color Yellow (YELLOW) 04/16/21 14:12 Urine Appearance Cloudy (CLEAR) 04/16/21 14:12 Urine pH 6.0 (5.0 - 8.0) 04/16/21 14:12 Ur Specific [place] 1.015 (1.000-1.030) 04/16/21 14:12 Urine Protein 3+ (NEGATIVE) 04/16/21 14:12 Urine Glucose (UA) Negative (NEGATIVE) 04/16/21 14:12 Urine Ketones Negative (NEGATIVE) 04/16/21 14:12 Urine Occult Blood 5+ (NEGATIVE) 04/16/21 14:12 Urine Nitrite Negative (NEGATIVE) 04/16/21 14:12 Urine Bilirubin Negative (NEGATIVE) 04/16/21 14:12 Urine Urobilinogen Normal (NORMAL) 04/16/21 14:12 Ur Leukocyte Esterase 1+ (NEGATIVE) 04/16/21 14:12 Urine RBC 3-5 /HPF (0-3) A 04/16/21 14:12 Urine WBC 0-2 /HPF (0-5) 04/16/21 14:12 Ur Squamous Epith Cells Many /HPF (NEGATIVE) 04/16/21 14:12 Ur Transition Epith Cell Moderate /HPF (NEGATIVE) 04/16/21 14:12 Amorphous Sediment 1+ /HPF (NEGATIVE) 04/16/21 14:12 Urine Bacteria 1+ /HPF (NEGATIVE) 04/16/21 14:12 Hyaline Casts Rare /LPF (NEGATIVE) 04/16/21 14:12 Granular Casts Moderate /LPF (NEGATIVE) 04/16/21 14:12 Urine Mucus Few /HPF (NEGATIVE) 04/16/21 14:12 Ur Culture Indicated? No/not indicated 04/16/21 14:12 Stool Description Fob tube 04/18/21 16:10 Stl Occult Blood (IFOB) Positive (NEGATIVE) A 04/18/21 16:10 SARS-CoV-2 (PCR) Negative (NEGATIVE) 04/16/21 15:41 Influenza Type A (PCR) Negative (NEGATIVE) 04/16/21 15:41 Influenza Type B (PCR) Negative (NEGATIVE) 04/16/21 15:41 RSV (PCR) Negative (NEGATIVE) 04/16/21 15:41 Tissue Pathology To follow 04/18/21 07:33 Plan (1) Anemia, normocytic normochromic: Status: Chronic (2) Fatigue: Status: Acute Qualifiers: Fatigue type: unspecified Qualified Code(s): R53.83 - Other fatigue (3) Syncope: Status: Acute Qualifiers: Syncope type: unspecified Qualified Code(s): R55 - Syncope and collapse (4) Rhabdomyolysis: Status: Acute Qualifiers: Rhabdomyolysis type: non-traumatic Qualified Code(s): M62.82 - Rhabdomyolysis (5) Generalized weakness: Status: Acute (6) Elevated alkaline phosphatase level: Status: Acute (7) Transaminitis: Status: Acute (8) CAD (coronary artery disease): Status: Chronic Qualifiers: Coronary Disease-Associated Artery/Lesion type: unspecified vessel or lesion type [place] vs. transplanted heart: [place] heart Associated angina: without angina Qualified Code(s): I25.10 - Atherosclerotic heart disease of [place] coronary artery without angina pectoris (9) Uterine cancer: Status: Acute Qualifiers: Malignant neoplasm of uterus location: unspecified site of uterus Quali fied Code(s): C55 - Malignant neoplasm of uterus, part unspecified (10) Elevated CA 19-9 level: Status: Acute (11) Acute on chronic renal failure: Status: Acute Qualifiers: Acute renal failure type: unspecified Chronic kidney disease stage: unspecified stage Qualified Code(s): N17.9 - Acute kidney failure, unspecified; N18.9 - Chronic kidney disease, unspecified
[2021-04-19] MEDS: HumuLIN R SC PRN (16:37)
[2021-04-19] MEDS: LANTUS SC SCH (21:00)
[2021-04-20] MEDS: NS 1000 ML 1,000 ML IV SCH ×4 (03:55→18:00)
[2021-04-20 06:24] LABS: BASOPHILS # (AUTO) 0.1 X10^3/uL (0.0-0.1); BASOPHILS % (AUTO) 0.6 % (0.2-1.0); EOSINOPHILS # (AUTO) 0.2 x10^3/uL (0.0-0.2); EOSINOPHILS % (AUTO) 2.1 % (0.9-2.9); HEMATOCRIT 22.3 % (36.0-47.0); HEMOGLOBIN 7.7 g/dL (12.0-16.0); LYMPHOCYTES # (AUTO) 2.3 X10^3/uL (1.3-2.9); LYMPHOCYTES % (AUTO) 23.1 % (21.0-51.0); MEAN CORPUSCULAR HGB CONC 34.4 g/dL (33.0-35.0); MEAN CORPUSCULAR VOLUME 78.6 fL (80.0-100.0); MEAN PLATELET VOLUME 8.9 fL (7.4-11.0); MONOCYTES # (AUTO) 1.1 x10^3/uL (0.3-0.8); MONOCYTES % (AUTO) 10.9 % (0.0-13.0); NEUTROPHILS # (AUTO) 6.3 x10^3/uL (2.2-4.8); NEUTROPHILS % (AUTO) 63.3 % (42.0-75.0); PLATELET COUNT 174 X10^3/uL (150.0-450.0); RED BLOOD COUNT 2.83 X10^6/uL (3.5-5.4); RED CELL DISTRIBUTION WIDTH 18.5 % (11.6-16.5)
[2021-04-20] MEDS: SYNTHROID 50 mcg TAB PO SCH (06:27)
[2021-04-20 06:54] LABS: ALBUMIN 1.6 g/dL (3.4-5.0); CALCIUM 8.4 mg/dL (8.5-10.1); CARBON DIOXIDE 22.4 mmol/L (21-32); COR CA(FOR HYPOALB) 10.3 mg/dL (8.5-10.1); CREATININE 1.85 mg/dL (0.55-1.02); TOTAL PROTEIN 6.1 g/dL (6.4-8.2)
--- NOTE | 2021-04-20 07:38 | US ---
HISTORYHX OF UTERINE CA, TUMOR MARKER ELEVATED, PT HAS HAD HYST, B/L OOPH AND CERVIX REMOVEDSTUDYPELVIC (NON OB)COMPARISONCT 03/23/2021TECHNIQUEMultiple kearney scale and color flow Doppler images of the pelvis were obtained.FINDINGSThe uterus and bilateral ovaries are surgically absent.No free fluid in the pelvis. No obvious pelvic mass. Multiple likely fluid-filled bowel loops in the pelvis.IMPRESSIONUnremarkable ultrasound of the pelvis. The nonspecific possible soft tissue thickening of the vaginal cuff on the left seen on comparison CT is nonspecific and could be better evaluated with multi phase contrasted MRI of the pelvis. Physical exam is also recommended.Electronically signed by: TAMIA VALDEZ (Apr 20, 2021 07:36:09)
--- NOTE | 2021-04-20 08:05 | US ---
HISTORYhx uterine ca, tumor markers elevatedSTUDYABDOMEN USCOMPARISONCT abdomen and pelvis 03/23/2021TECHNIQUEEighty-nine images made by the swatch paster. [place] scale and color-flow doppler images of the complete abdomen were obtained.FINDINGSThe liver has normal echogenicity and size. No mass or intrahepatic biliary duct dilatation is present. The intrahepatic inferior vena cava was imaged.The portal vein is patent with blood flow toward the liver.The pancreatic head and body are unremarkable. The pancreatic tail is not well seen due to overlying bowel gas.The gallbladder is contracted. Wall thickness is probably normal given the degree of contraction. Tiny echogenic areas in the gallbladder lumen might be stones. No pericholecystic fluid. No extrahepatic biliary duct dilatation; common duct is normal.The right kidney is normal in size and echogenicity. The left kidney is normal in size and echogenicity. No hydronephrosis or solid mass.The spleen is normal in size and echogenicity.Aorta has a normal caliber with no abdominal aortic aneurysm. Aortic bifurcation not seen because of overlying bowel gas.No ascites.IMPRESSION1. Oval cholelithiasisElectronically signed by: Nicolas Baron (Apr 20, 2021 08:03:42)
[2021-04-20] MEDS ORDERED: NS 500 ML IV 500 ML IV ONE (08:07)
[2021-04-20] MEDS: ASPIRIN EC 81 MG PO SCH (08:50)
[2021-04-20] MEDS: PROTONIX INJ 40 MG VIAL IVP SCH (08:50)
[2021-04-20] MEDS: GOLYTELY or GAVILYTE or Equivalent PO SCH (08:51)
[2021-04-20] MEDS: COREG TAB 6.25 MG PO SCH ×2 (08:51→20:44)
[2021-04-20] MEDS: LOVENOX INJ 30 MG SYR SC SCH (08:54)
[2021-04-20] MEDS: HumuLIN R SC PRN ×2 (12:11→17:11)
--- NOTE | 2021-04-20 15:33 | PCM.PROG ---
Progress Note Progress Note for Day of Date of Exam: 04/20/21 Subjective Subjective: Patient seen at bedside, no acute overnight events. She states she feels better. She is eating breakfast. She did not have any BM yesterday. Her hgb did drop to 7.7 this AM. She has the abdominal and pelvic ultrasound. Daughter states patient's urine has been dark in color with foul odor. Patient UA on admission did not show infection. Abdominal U/S: The liver has normal echogenicity and size. No mass or intrahepatic biliary duct dilatation is present. The intrahepatic inferior vena cava was imaged. The portal vein is patent with blood flow toward the liver. The pancreatic head and body are unremarkable. The pancreatic tail is not well seen due to overlying bowel gas. The gallbladder is contracted. Wall thickness is probably normal given the degree of contraction. Tiny echogenic areas in the gallbladder lumen might be stones. No pericholecystic fluid. No extrahepatic biliary duct dilatation; common duct is normal. The right kidney is normal in size and echogenicity. The left kidney is normal in size and echogenicity. No hydronephrosis or solid mass. Pelvis U/S: Unremarkable ultrasound of the pelvis. The nonspecific possible soft tissue thickening of the vaginal cuff on the left seen on comparison CT is nonspecific and could be better evaluated with multi-phase contrasted MRI of the pelvis. Physical exam is also recommended. Labs: Hgb 7.7 BUN/Cr: 16/1.85 CO2 23 AST 236 ALT 104 Alk Phos: 1337 Tumor marker: CEA 5.5 , CA19-9: 1940 Ca-125 pending Carotid U/S: moderate to severe atherosclerosis similar to September, no high grade stenosis seen Colonoscopy 04/19/21: Diverticulosis with a small amount of old blood in the rectum and within the diverticuli, but no active bleeding, neoplasm, ulcers, ischemic changes, or inflammatory bowel disease. Plan: Will transfuse one unit of PRBCs, monitor H/H. Discussed patient's U/S findings with Dr. Corbett. Will check with radiology about MRI with low dose contrast due to patient having CKD. Continue gentle hydration. Repeat UA. Continue current diet. Continue current medications. Patient will need further outpatient work up for elevated tumor markers. Monitor AM labs/imaging. PT/OT as tolerated. Past Medical Family Social History Past Med/Fam/Surg Hx: No changes since H&P Allergies: Allergies No Known Drug Allergies Allergy (Verified 04/16/21 12:22) Review of Systems ROS: No change since H&P Vital Signs and I&O's Vital Signs: Temperature 98.0 F Pulse Rate [Right Brachial] 72 Pulse Rate 70 Respiratory Rate 18 Blood Pressure [Right Arm] 139/61 Blood Pressure [Left Arm] 190/79 Blood Pressure 185/74 O2 Sat by Pulse Oximetry 97 Intake and Output: Intake & Output 04/17/21 04/18/21 04/19/21 04/20/21 23:59 23:59 23:59 23:59 Intake Total 4420 / 4420 3140 / 3140 1480 / 1480 3641 / 3641 Balance 4420 / 4420 3140 / 3140 1480 / 1480 3641 / 3641 Physical Exam Oriented: Normal Eyes: Normal Ear: Normal Nose: Normal Throat: Normal Respiratory: Normal Cardiovascular: Normal and Edema Auscultation: Bowel Sounds: Normal Tenderness: Normal Skin: Normal Musculoskeletal: Back:Thoracic, Back:Lumbar and Back:Paraspinous Psychiatric: Normal Mood Description: Calm Affect: Normal Speech Pattern: Clear and Appropriate Laboratory and Diagnostics Result Diagrams: 04/20/21 05:54 04/20/21 05:54 Labs: Laboratory WBC 10.0 X10^3/uL (3.6-10.0) 04/20/21 05:54 RBC 2.83 X10^6/uL (3.5-5.4) L 04/20/21 05:54 Hgb 7.7 g/dL (12.0-16.0) L 04/20/21 05:54 Hct 22.3 % (36.0-47.0) L 04/20/21 05:54 MCV 78.6 fL (80.0-100.0) L 04/20/21 05:54 MCH 27.0 pg (27.0-34.0) 04/20/21 05:54 MCHC 34.4 g/dL (33.0-35.0) 04/20/21 05:54 RDW 18.5 % (11.6-16.5) H 04/20/21 05:54 Plt Count 174 X10^3/uL (150.0-450.0) 04/20/21 05:54 MPV 8.9 fL (7.4-11.0) 04/20/21 05:54 Neut % (Auto) 63.3 % (42.0-75.0) 04/20/21 05:54 Lymph % (Auto) 23.1 % (21.0-51.0) 04/20/21 05:54 [place] % (Auto) 10.9 % (0.0-13.0) 04/20/21 05:54 Eos % (Auto) 2.1 % (0.9-2.9) 04/20/21 05:54 Baso % (Auto) 0.6 % (0.2-1.0) 04/20/21 05:54 Neut # (Auto) 6.3 x10^3/uL (2.2-4.8) H 04/20/21 05:54 Lymph # (Auto) 2.3 X10^3/uL (1.3-2.9) 04/20/21 05:54 [place] # (Auto) 1.1 x10^3/uL (0.3-0.8) H 04/20/21 05:54 Eos # (Auto) 0.2 x10^3/uL (0.0-0.2) 04/20/21 05:54 Baso # (Auto) 0.1 X10^3/uL (0.0-0.1) 04/20/21 05:54 Absolute Nucleated RBC 0.1 /100WBC 04/20/21 05:54 Sodium 136 mmol/L (136-145) 04/20/21 05:54 Corrected Sodium 137 mmol/L (136-145) 04/20/21 05:54 Potassium 4.1 mmol/L (3.5-5.1) 04/20/21 05:54 Chloride 106 mmol/L (98-107) 04/20/21 05:54 Carbon Dioxide 22.4 mmol/L (21-32) 04/20/21 05:54 BUN 16 mg/dL (7-18) 04/20/21 05:54 Creatinine 1.85 mg/dL (0.55-1.02) H 04/20/21 05:54 Est GFR (MDRD) Af Amer 34 (>60) L 04/20/21 05:54 Est GFR (MDRD) Non-Af 28 (>60) L 04/20/21 05:54 Glucose 123 mg/dL (65-99) H 04/20/21 05:54 POC Glucose (mg/dL) 167 mg/dL (65-99) H 04/20/21 11:51 Calcium 8.4 mg/dL (8.5-10.1) L 04/20/21 05:54 Corrected Calcium 10.3 mg/dL (8.5-10.1) H 04/20/21 05:54 Magnesium 2.4 mg/dL (1.7-2.9) 04/18/21 05:55 Iron 31 ug/dL (50-175) L 04/17/21 08:24 Transferrin 123 mg/dL (202-364) L 04/17/21 08:24 Ferritin 678 ng/mL (8-252) H 04/17/21 08:24 Total Bilirubin 1.20 mg/dL (0.2-1.0) H 04/20/21 05:54 AST 236 Units/L (15-37) H 04/20/21 05:54 ALT 104 Units/L (12-78) H 04/20/21 05:54 Alkaline Phosphatase 1337 Units/L (46-116) H 04/20/21 05:54 Creatine Kinase 2179 Units/L (26-192) H 04/18/21 05:55 CK-MB (CK-2) 18.8 ng/mL (0-4.0) H* 04/18/21 05:55 CK/CKMB % Calc 0.9 % (<4) 04/18/21 05:55 Troponin I 0.07 ng/mL (0-1.5) 04/18/21 05:55 Total Protein 6.1 g/dL (6.4-8.2) L 04/20/21 05:54 Albumin 1.6 g/dL (3.4-5.0) L 04/20/21 05:54 Globulin 4.5 g/dL (2.5-4.5) 04/20/21 05:54 Albumin/Globulin Ratio 0.4 Ratio (1.1-2.1) L 04/20/21 05:54 Lipase 152 Units/L (73-393) 04/16/21 12:48 Vitamin B12 > 2000 pg/mL (193-986) H 04/17/21 08:24 Folate 12.8 ng/mL (>8.6) 04/17/21 08:24 Specimen Type Random urine 04/16/21 14:12 Urine Color Yellow (YELLOW) 04/16/21 14:12 Urine Appearance Cloudy (CLEAR) 04/16/21 14:12 Urine pH 6.0 (5.0 - 8.0) 04/16/21 14:12 Ur Specific [place] 1.015 (1.000-1.030) 04/16/21 14:12 Urine Protein 3+ (NEGATIVE) 04/16/21 14:12 Urine Glucose (UA) Negative (NEGATIVE) 04/16/21 14:12 Urine Ketones Negative (NEGATIVE) 04/16/21 14:12 Urine Occult Blood 5+ (NEGATIVE) 04/16/21 14:12 Urine Nitrite Negative (NEGATIVE) 04/16/21 14:12 Urine Bilirubin Negative (NEGATIVE) 04/16/21 14:12 Urine Urobilinogen Normal (NORMAL) 04/16/21 14:12 Ur Leukocyte Esterase 1+ (NEGATIVE) 04/16/21 14:12 Urine RBC 3-5 /HPF (0-3) A 04/16/21 14:12 Urine WBC 0-2 /HPF (0-5) 04/16/21 14:12 Ur Squamous Epith Cells Many /HPF (NEGATIVE) 04/16/21 14:12 Ur Transition Epith Cell Moderate /HPF (NEGATIVE) 04/16/21 14:12 Amorphous Sediment 1+ /HPF (NEGATIVE) 04/16/21 14:12 Urine Bacteria 1+ /HPF (NEGATIVE) 04/16/21 14:12 Hyaline Casts Rare /LPF (NEGATIVE) 04/16/21 14:12 Granular Casts Moderate /LPF (NEGATIVE) 04/16/21 14:12 Urine Mucus Few /HPF (NEGATIVE) 04/16/21 14:12 Ur Culture Indicated? No/not indicated 04/16/21 14:12 Stool Description Fob tube 04/18/21 16:10 Stl Occult Blood (IFOB) Positive (NEGATIVE) A 04/18/21 16:10 SARS-CoV-2 (PCR) Negative (NEGATIVE) 04/16/21 15:41 Influenza Type A (PCR) Negative (NEGATIVE) 04/16/21 15:41 Influenza Type B (PCR) Negative (NEGATIVE) 04/16/21 15:41 RSV (PCR) Negative (NEGATIVE) 04/16/21 15:41 Tissue Pathology To follow 04/18/21 07:33 Blood Type O POSITIVE 04/20/21 08:58 Antibody Screen Negative 04/20/21 08:58 Crossmatch See Detail 04/20/21 08:58 Plan (1) Anemia, normocytic normochromic: Status: Chronic (2) Fatigue: Status: Acute Qualifiers: Fatigue type: unspecified Qualified Code(s): R53.83 - Other fatigue (3) Syncope: Status: Acute Qualifiers: Syncope type: unspecified Qualified Code(s): R55 - Syncope and collapse (4) Rhabdomyolysis: Status: Acute Qualifiers: Rhabdomyolysis type: non-traumatic Qualified Code(s): M62.82 - Rhabdomyolysis (5) Generalized weakness: Status: Acute (6) Elevated alkaline phosphatase level: Status: Acute (7) Transaminitis: Status: Acute (8) CAD (coronary artery disease): Status: Chronic Qualifiers: Associated angina: without angina Coronary Disease-Associated Artery/Lesion type: unspecified vessel or lesion type [place] vs. transplanted heart: [place] heart Qualified Code(s): I25.10 - Atherosclerotic heart disease of [place] coronary artery without angina pectoris (9) Uterine cancer: Status: Acute Qualifiers: Malignant neoplasm of uterus location: unspecified site of uterus Qualified Code(s): C55 - Malignant neoplasm of uterus, part unspecified (10) Elevated CA 19-9 level: Status: Acute (11) Acute on chronic renal failure: Status: Acute Qualifiers: Acute renal failure type: unspecified Chronic kidney disease stage: unspecified stage Qualified Code(s): N17.9 - Acute kidney failure, unspecified; N18.9 - Chronic kidney disease, unspecified
[2021-04-20 17:27] LABS: HEMATOCRIT 26.3 % (36.0-47.0); HEMOGLOBIN 8.9 g/dL (12.0-16.0)
[2021-04-20] MEDS: LANTUS SC SCH (20:44)
[2021-04-20 21:05] LABS: APPEARANCE,URINE CLEAR (CLEAR); BILIRUBIN,URINE NEGATIVE (NEGATIVE); BLOOD/HEMOGLOBIN,URINE 5+ (NEGATIVE); COLOR,URINE YELLOW (YELLOW); GLUCOSE, URINE 1+ (NEGATIVE); KETONES,URINE NEGATIVE (NEGATIVE); LEUKOCYTE ESTERASE ,URINE NEGATIVE (NEGATIVE); NITRITES,URINE NEGATIVE (NEGATIVE); PROTEIN,URINE 2+ (NEGATIVE); UROBILINOGEN,URINE NORMAL (NORMAL)
[2021-04-20 21:15] LABS: BACTERIA,URINE 1+ /HPF (NEGATIVE); SQUAMOUS EPITHELIAL CELL,UR NUMEROUS /HPF (NEGATIVE)
[2021-04-20 21:16] LABS: GRANULAR CASTS,URINE FEW /LPF (NEGATIVE)
[2021-04-21] MEDS: NS 1000 ML 1,000 ML IV SCH ×2 (01:15→11:59)
[2021-04-21] MEDS: SYNTHROID 50 mcg TAB PO SCH (05:34)
[2021-04-21 06:16] LABS: BASOPHILS # (AUTO) 0.1 X10^3/uL (0.0-0.1); BASOPHILS % (AUTO) 0.6 % (0.2-1.0); EOSINOPHILS # (AUTO) 0.2 x10^3/uL (0.0-0.2); EOSINOPHILS % (AUTO) 2.4 % (0.9-2.9); HEMATOCRIT 23.3 % (36.0-47.0); LYMPHOCYTES # (AUTO) 2.6 X10^3/uL (1.3-2.9); LYMPHOCYTES % (AUTO) 28.7 % (21.0-51.0); MEAN CORPUSCULAR HEMOGLOBIN 27.7 pg (27.0-34.0); MEAN CORPUSCULAR HGB CONC 34.4 g/dL (33.0-35.0); MEAN CORPUSCULAR VOLUME 80.7 fL (80.0-100.0); MONOCYTES # (AUTO) 0.9 x10^3/uL (0.3-0.8); MONOCYTES % (AUTO) 10.3 % (0.0-13.0); NEUTROPHILS # (AUTO) 5.2 x10^3/uL (2.2-4.8); PLATELET COUNT 171 X10^3/uL (150.0-450.0); RED BLOOD COUNT 2.88 X10^6/uL (3.5-5.4); RED CELL DISTRIBUTION WIDTH 18.4 % (11.6-16.5)
[2021-04-21 06:36] LABS: ALANINE AMINOTRANSFERASE 104 Units/L (12-78); ALBUMIN 1.6 g/dL (3.4-5.0); ASPARTATE AMINO TRANSFERASE 234 Units/L (15-37); BLOOD UREA NITROGEN 16 mg/dL (7-18); CALCIUM 8.2 mg/dL (8.5-10.1); CARBON DIOXIDE 21.3 mmol/L (21-32); CHLORIDE 106 mmol/L (98-107); COR CA(FOR HYPOALB) 10.1 mg/dL (8.5-10.1); SODIUM 135 mmol/L (136-145); eGFR NON BLACK RACES 31 (>60)
[2021-04-21 06:52] LABS: ALKALINE PHOSPHATASE 1364 Units/L (46-116)
[2021-04-21 06:53] LABS: CREATINE KINASE 1121 Units/L (26-192)
[2021-04-21] MEDS: COREG TAB 6.25 MG PO SCH (08:44)
[2021-04-21] MEDS: PROTONIX INJ 40 MG VIAL IVP SCH (08:44)
[2021-04-21] MEDS ORDERED: BRILINTA PO SCH (09:00)
[2021-04-21] MEDS ORDERED: NS 500 ML IV 500 ML IV ONE (09:03)
[2021-04-21] MEDS ORDERED: NS 250 ML IV 250 ML IV ONE (10:59)
--- NOTE | 2021-04-21 11:22 | W.DIS.FURT ---
Summary of Discharge Discharge Summary of Date Date of Exam: 04/21/21 Admission Date Date of Admission: 04/16/21 Admission Diagnosis Patient Problems (Updated 04/26/21 @ 16:54 by Leslee Shipman) Syncope (Acute) R55 Rhabdomyolysis (Acute) M62.82 Hospital Course: Ms Lu is a 76y/o female with a PMH Type 2 DM, CAD s/p PCI x 6 stents, HTN, HLD, GERD, Uterine cancer s/p hysterectomy and radiation in 2011, Chronic back pain presented with generalized weakness, dizziness and syncope. Patient went to the bathroom yesterday and passed out as per family. She then had another episode few mins later so EMS was called. She denies feeling sick when she woke up. She reports normal appetite a day prior. She has been complaining of increased weakness for the past few weeks. She has been getting outpatient work- up. She is scheduled for echo and stress test on at [facility]. Patient denies fever or chills, no N/V/D or melena. On admission, hgb was 8.4, Total CK was elevated at 1967, elevated LFTs and Alk phost 1376. Trop was within normal limits, no ST changes on EKG. Patient's UA, CXR and covid swab was negative. She was started on gentle hydration. Patient's stool did show blood and her Hgb did drop below 8. She was given 3 units of PRBcs total during this admission. Dr Corbett was consulted for anemia work up. Patient had EGD which showed gastritis, no active bleeding or ulcer. She also underwent colonoscopy which showed diverticulosis and old blood clots, no active bleeding. Patient's tumor markers Ca-125, CEA, CA19-9 came back elevated. She also had U/S abdomen which showed no acute findings. U/S pelvis showed some abnormality in the vaginal area, MRI with contrast was recommended. ECHO was also gabriel which was stable. Due to patient's elevated creatinine, she was not able to have MRI with contrast done to evaluate further. Her LFTs, Alk Phos remained elevated. She was tolerating PO intake and stable for discharge. She did not have any active bleeding. She will follow up with Oncology Dr. Herrera for further evaluation and Dr Corbett in 2 weeks. She will follow up with PCP next week. Vital Signs: Vital Signs (72 hours) 04/18/21 12:00 04/18/21 16:00 04/18/21 20:00 Temperature 97.5 F L 97.4 F L 97.6 F Pulse Rate [Right Brachial] 53 L 57 L 64 Respiratory Rate 18 18 20 Blood Pressure [Right Arm] 144/65 156/69 154/65 O2 Sat by Pulse Oximetry 100 96 99 04/19/21 00:00 04/19/21 04:00 04/19/21 08:00 Temperature 97.9 F 98.1 F Pulse Rate [Right Brachial] 70 66 47 L Respiratory Rate 18 20 18 Blood Pressure [Right Arm] 132/63 162/69 181/76 O2 Sat by Pulse Oximetry 98 99 100 04/19/21 09:50 04/19/21 10:05 04/19/21 10:20 Temperature 95.9 F L 95.9 F L 96.7 F L Pulse Rate [Right Brachial] 54 L 52 L 51 L Respiratory Rate 16 16 18 Blood Pressure [Right Arm] 128/61 138/61 160/66 O2 Sat by Pulse Oximetry 100 97 97 04/19/21 10:35 04/19/21 10:50 04/19/21 12:00 Temperature 96.4 F L 96.4 F L 96.7 F L Pulse Rate [Right Brachial] 54 L 55 L 55 L Respiratory Rate 18 18 18 Blood Pressure [Right Arm] 156/69 135/84 168/67 O2 Sat by Pulse Oximetry 98 98 98 04/19/21 16:00 04/19/21 20:00 04/20/21 00:00 Temperature 96.6 F L 97.7 F 97.5 F L Pulse Rate [Right Brachial] 56 L 63 62 Respiratory Rate 18 20 18 Blood Pressure [Right Arm] 139/64 136/63 134/62 O2 Sat by Pulse Oximetry 99 99 99 04/20/21 04:00 04/20/21 08:00 04/20/21 12:00 Temperature 97.4 F L 97.8 F 98.0 F Pulse Rate [Right Brachial] 62 62 72 Respiratory Rate 20 18 18 Blood Pressure [Right Arm] 134/63 152/67 139/61 O2 Sat by Pulse Oximetry 99 99 97 04/20/21 16:00 04/20/21 20:00 04/21/21 00:00 Temperature 98.4 F 98.3 F 98.0 F Pulse Rate [Right Brachial] 71 75 73 Respiratory Rate 20 18 20 Blood Pressure [Right Arm] 162/72 168/70 130/57 O2 Sat by Pulse Oximetry 97 97 97 04/21/21 04:00 Temperature 98.1 F Pulse Rate [Right Brachial] 62 Respiratory Rate 18 Blood Pressure [Right Arm] 149/66 O2 Sat by Pulse Oximetry 98 Labs: Laboratory Last Values WBC 9.0 X10^3/uL (3.6-10.0) 04/21/21 05:16 RBC 2.88 X10^6/uL (3.5-5.4) L 04/21/21 05:16 Hgb 8.0 g/dL (12.0-16.0) L 04/21/21 05:16 Hct 23.3 % (36.0-47.0) L 04/21/21 05:16 MCV 80.7 fL (80.0-100.0) 04/21/21 05:16 MCH 27.7 pg (27.0-34.0) 04/21/21 05:16 MCHC 34.4 g/dL (33.0-35.0) 04/21/21 05:16 RDW 18.4 % (11.6-16.5) H 04/21/21 05:16 Plt Count 171 X10^3/uL (150.0-450.0) 04/21/21 05:16 MPV 9.0 fL (7.4-11.0) 04/21/21 05:16 Neut % (Auto) 58.0 % (42.0-75.0) 04/21/21 05:16 Lymph % (Auto) 28.7 % (21.0-51.0) 04/21/21 05:16 Schleicher % (Auto) 10.3 % (0.0-13.0) 04/21/21 05:16 Eos % (Auto) 2.4 % (0.9-2.9) 04/21/21 05:16 Baso % (Auto) 0.6 % (0.2-1.0) 04/21/21 05:16 Neut # (Auto) 5.2 x10^3/uL (2.2-4.8) H 04/21/21 05:16 Lymph # (Auto) 2.6 X10^3/uL (1.3-2.9) 04/21/21 05:16 Schleicher # (Auto) 0.9 x10^3/uL (0.3-0.8) H 04/21/21 05:16 Eos # (Auto) 0.2 x10^3/uL (0.0-0.2) 04/21/21 05:16 Baso # (Auto) 0.1 X10^3/uL (0.0-0.1) 04/21/21 05:16 Absolute Nucleated RBC 0.2 /100WBC 04/21/21 05:16 Sodium 135 mmol/L (136-145) L 04/21/21 05:16 Corrected Sodium TNP 04/21/21 05:16 Potassium 3.9 mmol/L (3.5-5.1) 04/21/21 05:16 Chloride 106 mmol/L (98-107) 04/21/21 05:16 Carbon Dioxide 21.3 mmol/L (21-32) 04/21/21 05:16 BUN 16 mg/dL (7-18) 04/21/21 05:16 Creatinine 1.70 mg/dL (0.55-1.02) H 04/21/21 05:16 Est GFR (MDRD) Af Amer 38 (>60) L 04/21/21 05:16 Est GFR (MDRD) Non-Af 31 (>60) L 04/21/21 05:16 Glucose 101 mg/dL (65-99) H 04/21/21 05:16 POC Glucose (mg/dL) 180 mg/dL (65-99) H 04/20/21 21:15 Calcium 8.2 mg/dL (8.5-10.1) L 04/21/21 05:16 Corrected Calcium 10.1 mg/dL (8.5-10.1) 04/21/21 05:16 Magnesium 2.4 mg/dL (1.7-2.9) 04/18/21 05:55 Iron 31 ug/dL (50-175) L 04/17/21 08:24 Transferrin 123 mg/dL (202-364) L 04/17/21 08:24 Ferritin 678 ng/mL (8-252) H 04/17/21 08:24 Total Bilirubin 1.30 mg/dL (0.2-1.0) H 04/21/21 05:16 AST 234 Units/L (15-37) H 04/21/21 05:16 ALT 104 Units/L (12-78) H 04/21/21 05:16 Alkaline Phosphatase 1364 Units/L (46-116) H 04/21/21 05:16 Creatine Kinase 1121 Units/L (26-192) H 04/21/21 05:16 CK-MB (CK-2) 18.8 ng/mL (0-4.0) H* 04/18/21 05:55 CK/CKMB % Calc 0.9 % (<4) 04/18/21 05:55 Troponin I 0.07 ng/mL (0-1.5) 04/18/21 05:55 Total Protein 6.0 g/dL (6.4-8.2) L 04/21/21 05:16 Albumin 1.6 g/dL (3.4-5.0) L 04/21/21 05:16 Globulin 4.4 g/dL (2.5-4.5) 04/21/21 05:16 Albumin/Globulin Ratio 0.4 Ratio (1.1-2.1) L 04/21/21 05:16 Lipase 152 Units/L (73-393) 04/16/21 12:48 Vitamin B12 > 2000 pg/mL (193-986) H 04/17/21 08:24 Folate 12.8 ng/mL (>8.6) 04/17/21 08:24 Specimen Type Clean catch urine 04/20/21 20:45 Urine Color Yellow (YELLOW) 04/20/21 20:45 Urine Appearance Clear (CLEAR) 04/20/21 20:45 Urine pH 5.0 (5.0 - 8.0) 04/20/21 20:45 Ur Specific Fontana 1.010 (1.000-1.030) 04/20/21 20:45 Urine Protein 2+ (NEGATIVE) 04/20/21 20:45 Urine Glucose (UA) 1+ (NEGATIVE) 04/20/21 20:45 Urine Ketones Negative (NEGATIVE) 04/20/21 20:45 Urine Occult Blood 5+ (NEGATIVE) 04/20/21 20:45 Urine Nitrite Negative (NEGATIVE) 04/20/21 20:45 Urine Bilirubin Negative (NEGATIVE) 04/20/21 20:45 Urine Urobilinogen Normal (NORMAL) 04/20/21 20:45 Ur Leukocyte Esterase Negative (NEGATIVE) 04/20/21 20:45 Urine RBC 3-5 /HPF (0-3) A 04/20/21 20:45 Urine WBC 3-5 /HPF (0-5) 04/20/21 20:45 Ur Squamous Epith Cells Numerous /HPF (NEGATIVE) 04/20/21 20:45 Ur Transition Epith Cell Moderate /HPF (NEGATIVE) 04/16/21 14:12 Amorphous Sediment 1+ /HPF (NEGATIVE) 04/16/21 14:12 Urine Bacteria 1+ /HPF (NEGATIVE) 04/20/21 20:45 Hyaline Casts Rare /LPF (NEGATIVE) 04/16/21 14:12 Granular Casts Few /LPF (NEGATIVE) 04/20/21 20:45 Urine Mucus Few /HPF (NEGATIVE) 04/16/21 14:12 Ur Culture Indicated? No/not indicated 04/20/21 20:45 Stool Description Fob tube 04/18/21 16:10 Stl Occult Blood (IFOB) Positive (NEGATIVE) A 04/18/21 16:10 SARS-CoV-2 (PCR) Negative (NEGATIVE) 04/16/21 15:41 Influenza Type A (PCR) Negative (NEGATIVE) 04/16/21 15:41 Influenza Type B (PCR) Negative (NEGATIVE) 04/16/21 15:41 RSV (PCR) Negative (NEGATIVE) 04/16/21 15:41 Tissue Pathology To follow 04/18/21 07:33 Blood Type O POSITIVE 04/20/21 08:58 Antibody Screen Negative 04/20/21 08:58 Crossmatch See Detail 04/20/21 08:58 Reason For Visit: SYNCOPE, RHABDOMOYLYSIS Discharge Date Discharge Date: 04/21/21 Discharge Diagnosis All Active Problems (Updated 04/26/21 @ 16:54 by Leslee Shipman) Acute on chronic renal failure (Acute) Elevated CA 19-9 level (Acute) Uterine cancer (Chronic) Transaminitis (Acute) Elevated alkaline phosphatase level (Acute) Fatigue (Acute) Abnormal laboratory test result (Acute) Syncope (Acute) Rhabdomyolysis (Acute) Hypokalemia (Acute) CAD (coronary artery disease) (Chronic) Anemia, normocytic normochromic (Chronic) Generalized weakness (Acute) Uncontrolled diabetes mellitus (Chronic) Hypothyroidism, adult (Chronic) Hypertension associated with type 2 diabetes mellitus (Chronic) Heart murmur, aortic (Chronic) DM type 2, uncontrolled, with neuropathy (Chronic) DDD (degenerative disc disease), lumbar (Chronic) CKD (chronic kidney disease), stage II (Chronic) Weakness (Acute) Plan of Treatment: Continue with present treatment and follow up plan. Pt is to keep follow up appointment as instructed and take medications as ordered. Discharge Medications Discharge Medications: No Known Drug Allergies Allergy (Verified 04/16/21 12:22) CONTINUE taking the following medications ergocalciferol (vitamin D2) [Vitamin D2] 50,000 unit PO WEEKLY 04/16/21 [History] ferrous sulfate [Iron (ferrous sulfate)] 325 mg PO DAILY 04/16/21 [History] furosemide [Lasix] 40 mg PO DAILY 04/16/21 [History] garlic 1,200 mg PO DAILY 04/16/21 [History] losartan 100 mg PO DAILY 04/16/21 [History] melatonin 300 mcg PO HS 04/16/21 [History] potassium 99 mg PO DAILY 04/16/21 [History] vitamin [id number] acid 1,000 tab PO DAILY 04/16/21 [History] New Prescriptions pantoprazole 40 mg PO QAM 30 Days #30 tab 04/21/21 [Rx] Follow up and Referral Follow Up: 1 Week (PCP) 2 Weeks (Dr Corbett ) Discharge Disposition Discharge Disposition: Home with home health Discharge Condition: Stable Discharge Plan Discharge Plan Hospital Course: Ms Lu is a 76y/o female with a PMH Type 2 DM, CAD s/p PCI x 6 stents, HTN, HLD, GERD, Uterine cancer s/p hysterectomy and radiation in 2011, Chronic back pain presented with generalized weakness, dizziness and syncope. Patient went to the bathroom yesterday and passed out as per family. She then had another episode few mins later so EMS was called. She denies feeling sick when she woke up. She reports normal appetite a day prior. She has been complaining of increased weakness for the past few weeks. She has been getting outpatient work- up. She is scheduled for echo and stress test on at [facility]. Patient denies fever or chills, no N/V/D or melena. On admission, hgb was 8.4, Total CK was elevated at 1967, elevated LFTs and Alk phost 1376. Trop was within normal limits, no ST changes on EKG. Patient's UA, CXR and covid swab was negative. She was started on gentle hydration. Patient's stool did show blood and her Hgb did drop below 8. She was given 3 units of PRBcs total during this admission. Dr Corbett was consulted for anemia work up. Patient had EGD which showed gastritis, no active bleeding or ulcer. She also underwent colonoscopy which showed diverticulosis and old blood clots, no active bleeding. Patient's tumor markers Ca-125, CEA, CA19-9 came back elevated. She also had U/S abdomen which showed no acute findings. U/S pelvis showed some abnormality in the vaginal area, MRI with contrast was recommended. ECHO was also gabriel which was stable. Due to patien t's elevated creatinine, she was not able to have MRI with contrast done to evaluate further. Her LFTs, Alk Phos remained elevated. She was tolerating PO intake and stable for discharge. She did not have any active bleeding. She will follow up with Oncology Dr. Herrera for further evaluation and Dr Corbett in 2 weeks. She will follow up with PCP next week. Patient Disposition: HOME HEALTH SERVICE Condition: Stable Health Concerns: Post Hospitalization: new medications and changes needed to prevent readmission or further decline. Pt educated and given instructions on all concerns. Care Plan Goals: Problem: Fluid Volume Deficit Goal: Maintain/Improved Adequate hydration. Instructions: Follow provided instructions. Follow up with primary physician as directed. Contact primary care physician or report to the closest Emergency Room if condition worsens. Plan of Treatment: Continue with present treatment and follow up plan. Pt is to keep follow up appointment as instructed and take medications as ordered. Prescriptions: New pantoprazole 40 mg tablet,delayed release (DR/EC) 40 mg PO QAM 30 Days Qty: 30 RF: 1 Continued levothyroxine 50 mcg tablet 50 mcg PO DAILY RF: 0 Lantus Solostar U-100 Insulin 100 unit/mL (3 mL) insulin pen 25 unit SUBCUT HS RF: 0 atorvastatin 80 mg tablet 80 mg PO HS RF: 0 Brilinta 90 mg tablet 90 mg PO BID RF: 0 carvedilol 6.25 mg tablet 6.25 mg PO BID RF: 0 aspirin 81 mg Tablet,Delayed Release (Dr/Ec) 81 mg PO DAILY RF: 0 furosemide [Lasix] 40 mg Tablet 40 mg PO DAILY RF: 0 garlic 1,500 mg Capsule 1,200 mg PO DAILY RF: 0 ergocalciferol (vitamin D2) 25,000 unit Capsule 50,000 unit PO WEEKLY RF: 0 vitamin [id number] acid 500-400 mcg Tablet 1,000 tab PO DAILY RF: 0 ferrous sulfate [Iron (ferrous sulfate)] 325 mg (65 mg iron) Tablet 325 mg PO DAILY RF: 0 losartan 100 mg tablet 100 mg PO DAILY RF: 0 melatonin 300 mcg Tablet 300 mcg PO HS RF: 0 hydrocodone-acetaminophen 7.5-325 mg tablet 1 tab PO BID PRN (Reason: Pain) RF: 0 insulin lispro [Humalog KwikPen Insulin] 100 unit/mL insulin pen See Rx Instructions .ROUTE .COMPLEX RF: 0 Discontinued potassium 99 mg Tablet 99 mg PO DAILY RF: 0 Follow ups/Referrals Follow ups/Referrals: JOSE R ROJAS [STAFF PHYSICIAN] - MARIBEL HERRERA [REFERRING] - (Referral sent to Dr. Herrera's office on 04/21/21) TITUS LARSON [STAFF PHYSICIAN] - 2 WEEKS Leslee Shipman [Primary Care Provider] - 04/26/21 10:20 am Instructions Instructions: Blood Transfusion, Adult, [id number], Rhabdomyolysis, Anemia, Colonoscopy, Adult, Care After, [id number], Type 2 Diabetes Mellitus, Self Care, Adult, [id number], Hypertension, [id number], Blood Transfusion, Adult, Care After, [id number]-[id number], Syncope, [id number]-rk-[id number] Stand Alone Forms: Precautions for [place] [id number] [facility], Patient Portal, Social Distancing
[2021-04-21] MEDS: LOVENOX INJ 30 MG SYR SC SCH (11:58)
[2021-04-21] MEDS: ASPIRIN EC 81 MG PO SCH (11:59)
[2021-04-21 19:52] LABS: HEMATOCRIT 34.5 % (36.0-47.0)
[2021-04-21 19:54] LABS: HEMOGLOBIN 11.5 g/dL (12.0-16.0)
[2021-04-21 20:41] VITALS: BP 152/76
== END 2021-04-21 21:10 | disposition home health service (06) | DRG 558 ==
LOC: ER 12:09 → MED/SURG 15:43
PROVIDERS: ADMIT Obstetrics & Gynecology Obstetrics; ATTEND Internal Medicine
DX: M62.82 Rhabdomyolysis; D64.89 Other specified anemias; I25.10 Atherosclerotic heart disease of native coronary artery without angina pectoris; R74.01 Elevation of levels of liver transaminase levels; R26.89 Other abnormalities of gait and mobility; R55 Syncope and collapse; K29.00 Acute gastritis without bleeding; R97.8 Other abnormal tumor markers; E86.0 Dehydration; N17.8 Other acute kidney failure; E78.2 Mixed hyperlipidemia; N18.9 Chronic kidney disease, unspecified; R79.89 Other specified abnormal findings of blood chemistry; Z20.822 Contact with and (suspected) exposure to COVID-19; E11.22 Type 2 diabetes mellitus with diabetic chronic kidney disease; K57.30 Diverticulosis of large intestine without perforation or abscess without bleeding; E11.65 Type 2 diabetes mellitus with hyperglycemia; K21.00 Gastro-esophageal reflux disease with esophagitis, without bleeding; C55 Malignant neoplasm of uterus, part unspecified; I13.10 Hypertensive heart and chronic kidney disease without heart failure, with stage 1 through stage 4 chronic kidney disease, or unspecified chronic kidney disease; R53.83 Other fatigue; R74.8 Abnormal levels of other serum enzymes; R94.31 Abnormal electrocardiogram [ECG] [EKG]